=== PATIENT | male | born 1975 | race Two or more races ===

== ENCOUNTER 2023-11-13 09:38 | Outpatient (OUT) | payer BC, SELFPAY ==
[2023-11-14 04:07] LABS: Testosterone 11 ng/dL (264-916)
== END 2023-11-13 09:39 | disposition home or self-care (01) ==
LOC: LAB 09:46
PROVIDERS: PCP Family Medicine; Visit Provider Family Medicine
DX: Z00.00 Encounter for general adult medical examination without abnormal findings (principal)
CPT/HCPCS: 36415; 84403

== ENCOUNTER 2024-03-03 09:48 | Outpatient (REF) | payer BC, SELFPAY ==
[2024-03-03 10:24] LABS: Internal Control Within Normal Limits; SARS-CoV-2 Ag NEGATIVE (NEGATIVE)
== END 2024-03-03 09:49 | disposition home or self-care (01) ==
LOC: LAB 09:48
PROVIDERS: PCP Family Medicine; Visit Provider Nurse Practitioner Family
DX: B34.9 Viral infection, unspecified (principal)
CPT/HCPCS: 87811

== ENCOUNTER 2024-05-08 10:59 | Outpatient (OUT) | payer BC, SELFPAY ==
[2024-05-09 08:12] LABS: Testosterone 313 ng/dL (264-916)
== END 2024-05-08 11:00 | disposition home or self-care (01) ==
LOC: LAB 11:00
PROVIDERS: PCP Family Medicine; Visit Provider Nurse Practitioner Family
DX: E29.1 Testicular hypofunction (principal)
CPT/HCPCS: 36415; 84403

== ENCOUNTER 2025-04-14 11:17 | Outpatient (OUT) | payer BC, SELFPAY ==
--- OUTSIDE RECORDS SUMMARY | 2024-06-20 09:15 | XMS_ITS | Encounter Summary ---
Author Name [facility] Address [address] [place] [address] Care Team Providers Care [employer] Supervisor Name Role Phone EMMY TYLER Primary Care Provider Unavailabl e Selected Encounter This section includes the information on record at [place] for the Encounter. Date/Time Encounter Type Encounter Description Reason Pro vider Source Jun 20, 2024 01:15 PM Outpatient Encounter ADMIN PAT ACTIVTIES (MASNONCT) I[facility] Encounter Template Text not used by [place] Plan of Treatment: Future Appointments (+ 6 months) and Future Tests (+/- 45 days) The Plan of Treatment section includes future care activities for the patient from all [place] treatmentfacilities. This section includes future appointments and future orders which are active, pending or scheduled. Future Appointments This section includes appointments that were scheduled to occur 6 months from the date of the Encounter, up to a maximum of 20 appointments. The data comes from all [place] treatment facilities. Appointment Date/Time Appointment Type Appointme nt Facility Name Jul 31, 2024 02:00 PM AMBULATORY - MEDICINE [facility] Aug 25, 2024 03:00 PM AMBULATORY - PSYCHIATRY TO [facility] Aug 25, 2024 03:00 PM AMBULATORY - NONE [facility] [place] [facility] Aug 28, 2024 03:00 PM AMBULATORY - REHAB MEDICIN [facility] Sep 04, 2024 03:00 PM AMBULATORY - PSYCHIATRY [facility] Sep 12, 2024 03:30 PM AMBULATORY - PSYCHIATRY TO [facility] Oct 01, 2024 04:30 PM AMBULATORY - PSYCHIATRY TO [facility] Oct 08, 2024 04:30 PM AMBULATORY - PSYCHIATRY TO [facility] Oct 22, 2024 04:30 PM AMBULATORY - PSYCHIATRY TO [facility] Nov 05, 2024 04:30 PM AMBULATORY - PSYCHIATRY TO [facility] Nov 19, 2024 04:30 PM AMBULATORY - PSYCHIATRY TO [facility] Nov 26, 2024 04:30 PM AMBULATORY - PSYCHIATRY TO [facility] Dec 03, 2024 04:30 PM AMBULATORY - PSYCHIATRY TO [facility] Dec 10, 2024 04:30 PM AMBULATORY - PSYCHIATRY TO [facility] December 17, 2024 04:30 PM AMBULATORY - PSYCHIATRY TO [facility] Active, Pending, and Scheduled Orders This section includes a listing of several types of active, pending, and scheduled orders, including clinic medications orders, diagnostic test orders, procedure orders and consult orders; where the start date of the order is 45 days before the date of the Encounter or 45 days after the date of theEncounter. The data comes from all [place] treatment facilities. Test Date/Time Test Type Test Details Facility Name Jul 15, 2024 12:00 AM Laboratory - Chemi stry Order OCCULT BLOOD,FIT X1 SCREEN STOOL FECES SP [place] Jul 31, 2024 12:00 AM Laboratory - Chemi stry Order OCCULT BLOOD,FIT X1 SCREEN STOOL FECES WC [facility] Jul 31, 2024 01:32 PM Laboratory - Chemi stry Order CBC W/O DIFF. EDTA BLOOD SP ONCE [facility] Encounter Notes: All associated encounter notes This section contains the clinical notes associated to the Encounter. Date/Time Encounter Note(s) Provider Source Jun 20, 2024 01:16 PM MENTAL HEALTH NURS ING NOTE: LOCAL TITLE: [facility] MENTAL HEALTH NURSING NOTE STANDARD TITLE: MENTAL HEALTH NURSING NOTE DATE OF NOTE: JUN 20, 2024@13:16 ENTRY DATE: JUN 20, 2024@13:16:37 AUTHOR: YISEL HERNANDEZ EXP COSIGNER: URGENCY: STATUS: COMPLETED Telephone Note: Spoke with patient for 5 minutes. Current situation/condition: (include MSE, Crisis, Substance Abuse, SI/HI, need for medication renewal) Contacted to follow up on medication change and mental health symptoms at the request of Dr. Wu in 06/06/24 note addendum. Name, , and last 4 of SSN used to identify . Mills confirmed current location is address listed in CPRS. Mills agreeable to complete telephone visit with RN at this time. Assessment: reported melatonin and venlafaxine XR are working well. Denied adverse effects. Stated the first day of taking the venlafaxine he had some drowsiness, but that has gone away. Mills described his mood as being good. Denied SI/HI. Stated. Work has been a little bit of a pain in the butt but I'm ok. Mills reported he hasn't had an anxiety attack in a while. When was asked about the current dose of melatonin he uses. Mills stated he takes 10mg. To confirm was asked if he was taking 1 capsule or 2. Mills stated that he only takes one capsule. Mills was educated that 1 capsule is 5mg per his prescription. stated he thought one capsule was 10mg. uses the melatonin each night reported he gets 6-7 hours of continuous sleep. denied questions or concerns at this time. Plan: -Continue with treatment plan per [facility] Provider(s) -Confirmed next appointment with Dr. Wu is on 07/14/24 at 1330. Education: -Provided guidance should contact the 's Crisis Line number [phone] (available 05/03) or call 911 or present to the closest Emergency Department if needed. /blayne/ YISEL URIOSTEGUI REGISTERED NURSE Signed: 06/20/2024 13:18 Receipt Acknowledged By: 06/20/2024 15:47 /blayne/ VISH WU [employer] SKIVER YISEL HERNANDEZ [facility]
--- OUTSIDE RECORDS SUMMARY | 2024-07-31 10:00 | XMS_ITS | Encounter Summary ---
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 Date/Time Encounter Type Encounter Description Reason Provider Source Jul 31, 2024 02:00 PM OFFICE O/P EST MOD 30 MIN PRIMARY CARE/MEDICINE ICD-10-CM M25.569 Pain in unspecified knee EMMY PACHECO NP IH[facility] Paul Encounter Template Text not used by [place] Assessments - Encounter Diagnoses This section includes the primary and secondary diagnoses documented for the Encounter. Date/Time Primary/Secondary Diagnosis Diagnosis Name Provider Source Jul 31, 2024 01:35 PM PRIMARY Pain in unspecified knee EMMY PACHECO NP [facility] Jul 31, 2024 01:35 PM SECONDARY Anxiety disorder, unspecified EMMY PACHECO NP [facility] Jul 31, 2024 01:35 PM SECONDARY Depression, unspecified EMMY PACHECO NP [facility] Jul 31, 2024 01:35 PM SECONDARY Essential (primary) hypertension [facility] Jul 31, 2024 01:35 PM SECONDARY Gastro-esophageal reflux disease without esophagitis [facility]MMY PAC[facility]CO [facility] Jul 31, 2024 01:35 PM SECONDARY Hyperlipidemia, unspecified [facility] Jul 31, 2024 01:35 PM SECONDARY Low back pain, unspecified EMMY PACHECO NP [facility] Jul 31, 2024 01:35 PM SECONDARY Obstructive sleep apnea (adult) (pediatric) EMMY PACHECO NP [facility] Jul 31, 2024 01:35 PM SECONDARY Pain in left knee EMMY PACHECO NP [facility] Jul 31, 2024 01:35 PM SECONDARY Type 2 diabetes mellitus without complications EMMY PACHECO NP [facility] Plan of Treatment: Future Appointments (+ 6 months) and Future Tests (+/- 45 days) The Plan of Treatment section includes future care activities for the patient from all [place] [facility] This section includes future appointments and future orders which are active, pending or scheduled. Future Appointments This section includes appointments that were scheduled to occur 6 months from the date of the Encounter, up to a maximum of 20 appointments. The data comes from all [place] treatment facilities. Appointment Date/Time Appointment Type Appointme nt Facility Name Aug 25, 2024 03:00 PM AMBULATORY - PSYCHIATRY TO [facility] Aug 25, 2024 03:00 PM AMBULATORY - NONE [facility] Aug 28, 2024 03:00 PM AMBULATORY - REHAB MEDICIN E [facility] Sep 04, 2024 03:00 PM AMBULATORY - PSYCHIATRY [facility] Sep 12, 2024 03:30 PM AMBULATORY - PSYCHIATRY TO [facility] Oct 01, 2024 04:30 PM AMBULATORY - PSYCHIATRY TO [facility] Oct 08, 2024 04:30 PM AMBULATORY - PSYCHIATRY TO [facility] Oct 22, 2024 04:30 PM AMBULATORY - PSYCHIATRY TO [facility] Nov 05, 2024 04:30 PM AMBULATORY - PSYCHIATRY TO [facility] Nov 19, 2024 04:30 PM AMBULATORY - PSYCHIATRY TO [facility] Nov 26, 2024 04:30 PM AMBULATORY - PSYCHIATRY TO [facility] Dec 03, 2024 04:30 PM AMBULATORY - PSYCHIATRY TO [facility] Dec 10, 2024 04:30 PM AMBULATORY - PSYCHIATRY TO [facility] December 17, 2024 04:30 PM AMBULATORY - PSYCHIATRY TO [facility] Jan 28, 2025 02:30 PM AMBULATORY - PSYCHIATRY TO [facility] Active, Pending, and Scheduled Orders This section includes a listing of several types of active, pending, and scheduled orders, including clinic medications orders, diagnostic test orders, procedure orders and consult orders; where the start date of the order is 45 days before the date of the Encounter or 45 days after the date of theEncounter. The data comes from all [place] treatment facilities. Test Date/Time Test Type Test Details Facility Name Jul 15, 2024 12:00 AM Laboratory - Chemi stry Order OCCULT BLOOD,FIT X1 SCREEN STOOL FECES SP [facility] Jul 31, 2024 12:00 AM Laboratory - Chemi stry Order OCCULT BLOOD,FIT X1 SCREEN STOOL FECES WC [facility] Jul 31, 2024 01:32 PM Laboratory - Chemi stry Order CBC W/O DIFF. EDTA BLOOD SP ONCE [facility] Sep 04, 2024 03:57 PM Consult Order JOE URRUTIA TEAM OUTPT [employer] Speech Language Pathologist's Choice [facility] Lab Results: +/- 30 days of the encounter This section includes the Chemistry and Hematology Lab Results on record with [place] for the patient. Radiology Reports and Pathology Reports are provided separately, in subsequent sections. Lab Results This section contains the Chemistry/Hematology Results that were resulted 30 days before or 30 daysafter the date of the Encounter. Date/Time Source Result Type Result - Unit Interpretation Reference Range Specimen Type Comment Jul 31, 2024 01:46 PM [facility] MICROALBUMIN URINE PANEL,RANDOM URINE,RA NDOM Specimen Type: URINE,RANDOM No comment entered. Ordering Provider: EMMY PACHECO DRYWALL APPLICATOR Report Released Date/Time: Jul 31, 2024 01:32 PM Reporting Lab: [address] [address] Performing Lab: [address] [address] CREATININE 184 mg/dL MICROALBUMIN,RANDOM 1.6 mg/dL MICRO/CREAT RATIO 8.7 mg/g Jul 31, 2024 01:46 PM [facility] URINALYSIS URINE,RANDOM Specimen Type: URINE,RANDOM No comment entered. Ordering Provider: EMMY PACHECO DRYWALL APPLICATOR Report Released Date/Time: Jul 31, 2024 01:32 PM Reporting Lab: [facility] [address] [facility] [address] Performing Lab: [facility] [address] [facility] [address] URINE COLOR YELLOW Yellow SPECIFIC GRAVITY 1.023 1.003-1.035 UROBILINOGEN 1.0 {Billy'U}/dL 0.2-2.0 URINE BILIRUBIN NEGATIVE Negative URINE KETONES NEGATIVE Negative URINE GLUCOSE NEGATIVE Negative URINE PROTEIN 2+ Negative URINE PH 5.5 5.0-9.0 URINE BLOOD NEGATIVE Negative URINE NITRITE NEGATIVE Negative LEUKOCYTE ESTERASE NEGATIVE Negative URINE CLARITY CLEAR Clear RBC/HPF URINE 0-2 /[HPF] 0-2 WBC/HPF URINE 0-5 /[HPF] 0-5 BACTERIA,URINE None Seen /[HPF] RENAL EPITHELIAL CELLS/HPF Present None Seen URINE MUCOUS Present None Seen URINE SPERM PRESENT None Seen TOTAL CASTS 0-2 /[LPF] 0-5 TOTAL EPITHELIAL CELLS None Seen /[LPF] Jul 31, 2024 01:46 PM [facility] LIPID PROFILE BLOOD Specimen Type: BLOOD No comment entered. Ordering Provider: EMMY PACHECO DRYWALL APPLICATOR Report Released Date/Time: Jul 31, 2024 01:32 PM Reporting Lab: [address] [facility] [address] Performing Lab: [facility] [address] [facility] [address] CHOLESTEROL 114 mg/dL <200 TRIGLYCERIDE 238 mg/dL HDL CHOLESTEROL 31 mg/dL LDL CHOLESTEROL,calc 35 mg/dL <130 Jul 31, 2024 01:46 PM [facility] HGB A1C (with eAG) BLOOD Specimen Type: BLOOD Comment: ~HGB A1C - Reference Range prior to 09/24/96: 3-6.1% Ordering Provider: EMMY PACHECO DRYWALL APPLICATOR Report Released Date/Time: Jul 31, 2024 01:32 PM Reporting Lab: [facility] [address] [facility] [address] Performing Lab: [address] [address] HGB A1C 5.6 4.0-6.0 ESTIMATE AVG GLUCOSE 114 mg/dL Jul 31, 2024 01:46 PM [facility] TOTAL 25-HYDROXY VITAMIN D BLOOD Specimen Typ e: BLOOD No comment entered. Ordering Provider: EMMY PACHECO DRYWALL APPLICATOR Report Released Date/Time: Jul 31, 2024 01:32 PM Reporting Lab: [facility] [address] [facility] [address] Performing Lab: [facility] [address] [facility] [address] TOTAL 25-HYDROXY VITAMIN D 12.0 ng/mL L 30 -100 Jul 31, 2024 01:46 PM [facility] COMPREHENSIVE METABOLIC PANEL BLOOD Specimen Type: BLOOD No comment entered. Ordering Provider: EMMY PACHECO NP Report Released Date/Time: Jul 31, 2024 01:32 PM Reporting Lab: [facility] [address] [facility] [address] Performing Lab: [facility] [address] [facility] [address] CREATININE 1.3 mg/dL 0.6-1.3 UREA NITROGEN 17 mg/dL 7-25 GLUCOSE 136 mg/dL H 74-109 SODIUM 139 mmol/L 136-145 POTASSIUM 4.0 mmol/L 3.5-5.1 CHLORIDE 105 mmol/L 98-107 CO2 28 mmol/L 21-31 CALCIUM 9.2 mg/dL 8.6-10.3 PROTEIN,TOTAL 6.9 g/dL 6.4-8.9 ALBUMIN 4.5 g/dL 3.5-5.7 TOT. BILIRUBIN 0.5 mg/dL 0.3-1.0 ALKALINE PHOSPHATASE 64 U/L 34-104 SGOT(AST) 28 U/L 13-39 SGPT(ALT) 51 U/L 7-52 EGFR 67 mL/min/{1.73_m2} Social History: Smoking Status (Most current) and Tobacco Use (All prior to encounter date) This section includes the most current, and the historical, smoking and tobacco- related health factors from the [place] facility where the Encounter took place. Current Smoking Status This section includes the most current smoking, or tobacco-related health factor, from the [place] facility where the Encounter took place. Date/Time Current Smoking Status Comment Jonathan solisy Nov 01, 2023 03:30 PM VA-TOBACCO DOESNT USE WI 30 MIN WAKEUP [facility] Tobacco Use History This section includes a history of the smoking, or tobacco-related health factors, that were collected on or before the date of the Encounter. The data comes from the [place] facility where the Encounter took place. Date/Time Smoking Status/Tobacco Use Comment F acility Nov 01, 2023 03:30 PM VA-TOBACCO USE > 15 LESS THAN 30 YEARS [facility] Nov 01, 2023 03:30 PM VA-TOBACCO USE ADVICE [facility] Nov 01, 2023 03:30 PM VA-TOBACCO USE SPICE GRINDER YES [facility] Nov 01, 2023 03:30 PM VA-TOBACCO USE MED NOTIFY PROVID ER [facility] Nov 01, 2023 03:30 PM VA-TOBACCO USER EVERY DAY [facility] Oct 20, 2022 10:30 AM VA-TOBACCO DOESNT USE WI 30 MIN WAKEUP [facility] Oct 20, 2022 10:30 AM VA-TOBACCO USE > 15 LESS THAN 30 YEARS [facility] Oct 20, 2022 10:30 AM VA-TOBACCO USE ADVICE [facility] Oct 20, 2022 10:30 AM VA-TOBACCO USE SPICE GRINDER NO [facility] Oct 20, 2022 10:30 AM VA-TOBACCO USE MED NOTIFY PROVID ER [facility] Oct 20, 2022 10:30 AM VA-TOBACCO USER EVERY DAY [facility] Encounter Notes: All associated encounter notes This section contains the clinical notes associated to the Encounter. Date/Time Encounter Note(s) Provider Source Jul 31, 2024 02:41 PM PRIMARY CARE TELEP SHAVONNE ENCOUNTER NOTE: LOCAL TITLE: PRIMARY CARE TELEPHONE STANDARD TITLE: PRIMARY CARE TELEPHONE ENCOUNTER NOTE DATE OF NOTE: JUL 31, 2024@14:41 ENTRY DATE: JUL 31, 2024@14:42:03 AUTHOR: EMMY PACHECO NP EXP COSIGNER: URGENCY: STATUS: COMPLETED Please call and go over patient's recent lab work. Thank you. Lipid panel: Normal A1c: 5.6 CMP: Normal UA: Normal Vitamin D: 12.0 Please let patient know that he should take vitamin D at this time as his vitamin D was low. Will order vitamin D for him to take. It will be once a week for 3 months. He should have his vitamin D rechecked at his next visit. /blayne/ EMMY PACHECO NP Nurse Practitioner, [facility] Signed: 08/01/2024 07:42 Receipt Acknowledged By: 08/01/2024 13:22 /blayne/ KIT REESE, RN EMMY PACHECO NP [facility] Jul 31, 2024 01:26 PM PRIMARY CARE OUTPA JOS NOTE: LOCAL TITLE: PRIMARY CARE STANDARD TITLE: PRIMARY CARE OUTPATIENT NOTE DATE OF NOTE: JUL 31, 2024@13:26 ENTRY DATE: JUL 31, 2024@13:26:24 AUTHOR: EMMY PACHECO NP EXP COSIGNER: URGENCY: STATUS: COMPLETED OUTPATIENT NOTE - NANETTE CHOI JR (1975) - 07/31/2024 ASSESSMENT AND PLAN: Bilateral Knee Pain - Discussed with patient we would reach out to nurse rn case manager for physical medicine and rehabilitation to assist with getting him scheduled for his follow-up appointment. Patient states that Duralene injections did work well but they have since worn off. Patient was last seen in June,. Diabetes Mellitus Type II - Patient states he is only taking Semaglutide at this time. Patient is getting Semaglutide through his outside provider. Hypertension - Blood pressure within normal limits at today's visit. Encouraged patient to continue with home monitoring, low sodium diet and if any issues or concerns return to clinic for further evaluation. Medication will be refilled at today's visit if warranted. Hyperlipidemia - Discussed with patient to continue with dietary modifications and to increase lean meats, fresh fruits, and vegetables. Discussed with patient we will get annual lab work at this time. Will adjust medication or change medication if warranted after results. Obstructive Sleep Apnea - Currently getting all supplied though the outside at this time. Anxiety - States he is taking medication without any issues and starting therapy in September,. Denies any thoughts of wanting to hurt self or others. Low Back Pain Wearing low back brace and using TENS unit at this time. States he has been to PT at this time. Preventative Measures - Encourage patient to follow-up with all recommended vaccinations and immunizations. Encourage patient to complete all preventative testing and procedures appropriate for age. Discussed with patient we will get annual lab work at today's visit. Discussed with patient we will call for any abnormal lab work. Encourage patient to continue with healthy living to include diet and exercise. Labs - CBC, CMP, A1C, Lipid, UA/Microalbumiin Return to Clinic - Discussed with patient to follow up at clinic in 12 months. Discussed with patient to return to clinic sooner for any issues or concerns. Encouraged patient to reach out to PCM and RNCM via secure messaging in [employer] piter. Patient verbalized understanding and denied any questions or concerns and verbalized understanding of treatment plan. Encounter type: Aifn-sv-gtow. Time (F2F + Non-F2F): 30 min. RETURN VISIT: - Return visit in: 12 months 12 month face to face follow up Reason for encounter: Annual Visit HPI: 48-year-old male presents for annual follow up. Diabetes Mellitus Type II - Currently taking Ozempic weekly. States he is being managed by his outside provider at this time. Hypertension - Currently taking Irbesartan and is managed by outside provider at this time. Hyperlipidemia - Currently taking Atorvastatin at this time. Denies any myalgias and is being managed by outside provider. Bilateral Knee Pain - Patient had Durolane injections to physical medicine and rehabilitation in February,. Patient was to have a follow-up in 3 months. Patient has not yet heard when his follow-up date was. Obstructive Sleep Apnea - Currently using CPAP machine nightly. Anxiety - Currently taking Venlafaxine. States he has increased stress and anxiety. CO-MANAGED INFORMATION: - Orthopedic: [facility] - Primary Care Provider: Deepa REVIEW OF SYSTEMS: MSK: (+) Joint pain PAST MEDICAL HISTORY: Diabetes mellitus with Peripheral Neuropathy GERD Hyperlipidemia Hypertension Sleep Apnea Lower Back Pain Cervicalgia Tinnitus Hearing Loss Lower Extremity Edema SOCIAL HISTORY - ETOH Use: Current ETOH: Infrequent (based on Audit - C guidelines). - Tobacco use: Current Smoker: Yes. 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 ATORVASTATIN TAB - 10mg PO DAILY IRBESARTAN TAB - 75mg PO DAILY MELATONIN 5MG CAP/TAB - take 1-2 capsule/tablet PO at Q BEDTIME PRN METHOCARBAMOL 750MG TAB - take one tablet PO four times a day OMEPRAZOLE CAP,EC - 20mg PO QPM SEMAGLUTIDE (OZEMPIC) INJ,SOLN - 0.25mg SUBQ once every week VENLAFAXINE HCL 37.5MG 24HR SA CAP - take one capsule PO DAILY VENLAFAXINE HCL 75MG 24HR SA CAP - take one capsule PO DAILY EXAM VITAL SIGNS: Date@Time[Site] BP HR Resp %O2 Pain Wt(kg) Ht(cm) BMI Temp(C) 07/31/24 13:07[506] 128/74 84 18 96 7 131.5 175 43 37 Units mmHg /min /min % kg cm C PHYSICAL EXAM: Gen:(+) Oriented x3 HEENT:(+) TM Intact Neck:(+) Supple CV:(+) RRR Lungs:(+) CTAB Abd:(+) Soft Gait - Walks by self Neuro - CN Intact HEALTH MAINTENANCE Immunization History: - COVID: 01/28/21 01/07/21 - FLU: 09/09/21 Colon Cancer Screening Plan: P-MEDICATION RECONCILIATION: Completed. Avg Risk Colorectal Cancer Screen: AVERAGE RISK colorectal cancer screening is due based on information available to this clinical reminder FOBT/FIT (Fecal Immunochemical Testing) has been ordered. See order tab for details. P-HgA1C >9 or not done in 6 mo.: Patient's last HGB A1C was 5.3 (01/24/24 16:00). Patient's HG A1C labs are pending at the time of this visit. Bariatric Surgery Reminder: [place] has been identified as a potential candidate for bariatric surgery. Please evaluate and bariatric surgery criteria and make the most appropriate selection. [place] is NOT CURRENTLY a candidate for bariatric surgery but may be in the future /blayne/ EMMY PACHECO NP Nurse Practitioner, [facility] Signed: 07/31/2024 13:35 EMMY PACHECO NP [facility] Jul 31, 2024 01:02 PM PRIMARY CARE NURSI NG NOTE: LOCAL TITLE: PRIMARY CARE PREVENTIVE HEALTH STANDARD TITLE: PRIMARY CARE NURSING NOTE DATE OF NOTE: JUL 31, 2024@13:02 ENTRY DATE: JUL 31, 2024@13:02:53 AUTHOR: JAZMÍN MICHAEL COSIGNER: URGENCY: STATUS: COMPLETED S; Chief complaint/reason for 6 month folow up appointment O: Vital signs enered. P: To see a provider Emmy Pacheco NP COVID-19 Immunization: Refused Pfizer Monovalent COVID-19 vaccine Immunization: COVID-19 (PFIZER), MRNA, LNP-S, PF, BALDEMAR-SUCROSE, 30 MCG/0.3 ML (AGES 12+ YEARS) Refusal Reason: PATIENT DECISION Patient refuses all immunization(s) in the COVID-19 group Date Documented: 07/31/24 13:03 Hepatitis B Serology/Immunization: The patient declines to have HBV serology done. Reason: refused Influenza Immunization: Deferral / Refusal The patient declines to receive the recommended dose of seasonal influenza vaccine. Immunization: INFLUENZA, UNSPECIFIED FORMULATION Refusal Reason: PATIENT DECISION Patient refuses all immunization(s) in the FLU group Date Documented: 07/31/24 13:04 Tdap Immunization: The patient declines to receive the recommended dose of Tdap vaccine. Immunization: TDAP Refusal Reason: PATIENT DECISION Patient refuses all immunization(s) in the TDAP group Date Documented: 07/31/24 13:04 Pneumococcal Conjugate Vaccine (PCV15/PCV20): Refuses PCV vaccine Immunization: PNEUMOCOCCAL CONJUGATE, UNSPECIFIED FORMULATION Refusal Reason: PATIENT DECISION Patient refuses all immunization(s) in the PneumoPCV group Date Documented: 07/31/24 13:05 N-Pain Screen: Are you currently experiencing pain? Yes - DVPRS scale used to assess Location: knee's Defense and Veterans Pain Rating Scale (DVPRS): 7 Focus of attention, prevents doing daily activities Pain Score: 7 Patient's acceptable pain goal: 0 No pain N-MEDICATION RECONCILIATION: Review of medications and allergies at the time of this encounter included: Local and remote allergies, active and pending prescriptions dispensed from this [facility] (local) and dispensed from another VA or DoD facility (remote) as well as local inpatient and clinic medications (IMOs), locally documented non-VA medications and local prescriptions that have or been discontinued in the past 90 days. If a category is not listed below, it means there were no known relevant local and/or remote medications and/or allergies. The patient/family member received an updated list of current medications. Local & Remote Allergies: Patient has answered NKA Active Outpatient Medications (including Supplies): MELATONIN 5MG CAP/TAB TAKE 1-2 CAPSULE/TABLET BY MOUTH AT ACTIVE (S) BEDTIME NEEDED Indication: FOR SLEEP METHOCARBAMOL 750MG TAB TAKE ONE TABLET BY MOUTH FOUR ACTIVE (S) TIMES A DAY Indication: FOR MUSCLE SPASM VENLAFAXINE HCL 37.5MG 24HR SA CAP TAKE ONE CAPSULE BY ACTIVE (S) MOUTH ONCE DAILY TO BE TAKEN WITH 75MG CAPSULE FOR TOTAL OF 112.5MG EVERY DAY Indication: FOR MENTAL HEALTH VENLAFAXINE HCL 75MG 24HR SA CAP TAKE ONE CAPSULE BY MOUTH ACTIVE (S) ONCE DAILY TO BE TAKEN WITH 37.5MG CAPSULE FOR A TOTAL OF 112.5MG EVERY DAY Indication: FOR MENTAL HEALTH Non-VA ATORVASTATIN CALCIUM 20MG TAB 10MG MOUTH ONCE DAILY ACTIVE Indication: FOR CHOLESTEROL Non-VA IRBESARTAN 75MG TAB 75MG MOUTH ONCE DAILY ACTIVE Indication: FOR BLOOD PRESSURE Non-VA OMEPRAZOLE 20MG EC CAP 20MG MOUTH EVERY EVENING ACTIVE Indication: FOR STOMACH ACID Non-VA SEMAGLUTIDE 0.25MG/0.375ML INJ PEN 3ML 0.25MG UNDER ACTIVE THE SKIN ONCE EVERY WEEK Indication: FOR DIABETES 8 Total Medications N-BMI > 30 or > 24.99 in High Risk: Patient Refuses referral. After discussing the health risks of obesity and offering a referral to [facility] or another weight loss program outside the [place], the patient REFUSES REFERRAL to [facility] or other weight loss program at this time. N-Stress Discussed ([facility]): [place] DENIES experiencing substantial stress or worry in the past month. N-Colorectal Avg Risk Due: FOBT/FIT (Fecal Immunochemical Testing) has been ordered. See order tab for details. /blayne/ JAZMÍN MICHAEL LPN Signed: 07/31/2024 13:07 JAZMÍN MICHAEL [facility]
--- OUTSIDE RECORDS SUMMARY | 2024-08-25 11:00 | XMS_ITS | Encounter Summary ---
Author Name [facility] [place] [facility] [place] [facility] [place] Address [address] [place] [address] Care Team Providers Care Internal Corrosion Specialist Name Role Phone EMMY TYLER Primary Care Provider Unavailabl e Selected Encounter This section includes the information on record at [place] for the Encounter. Date/Time Encounter Type Encounter Description Reason Provider Source Aug 25, 2024 03:00 PM Outpatient Encounter ADMIN PAT ACTIVTIES (MASNONCT) VISH DISLA [facility] Encounter Template Text not used by [place] Plan of Treatment: Future Appointments (+ 6 months) and Future Tests (+/- 45 days) The Plan of Treatment section includes future care activities for the patient from all [place] treatmentfacilities. This section includes future appointments and future orders which are active, pending or scheduled. Future Appointments This section includes appointments that were scheduled to occur 6 months from the date of the Encounter, up to a maximum of 20 appointments. The data comes from all [place] treatment facilities. Appointment Date/Time Appointment Type Appointme nt Facility Name Aug 28, 2024 03:00 PM AMBULATORY - REHAB MEDICIN E [facility] Sep 04, 2024 03:00 PM AMBULATORY - PSYCHIATRY [facility] Sep 12, 2024 03:30 PM AMBULATORY - PSYCHIATRY TO [facility] Oct 01, 2024 04:30 PM AMBULATORY - PSYCHIATRY TO [facility] Oct 08, 2024 04:30 PM AMBULATORY - PSYCHIATRY TO [facility] Oct 22, 2024 04:30 PM AMBULATORY - PSYCHIATRY TO [facility] Nov 05, 2024 04:30 PM AMBULATORY - PSYCHIATRY TO [facility] Nov 19, 2024 04:30 PM AMBULATORY - PSYCHIATRY TO [facility] Nov 26, 2024 04:30 PM AMBULATORY - PSYCHIATRY TO [facility] Dec 03, 2024 04:30 PM AMBULATORY - PSYCHIATRY TO [facility] Dec 10, 2024 04:30 PM AMBULATORY - PSYCHIATRY TO [facility] December 17, 2024 04:30 PM AMBULATORY - PSYCHIATRY TO [facility] Jan 28, 2025 02:30 PM AMBULATORY - PSYCHIATRY TO [facility] Feb 09, 2025 03:30 PM AMBULATORY - PSYCHIATRY TO [facility] Active, Pending, and Scheduled Orders This section includes a listing of several types of active, pending, and scheduled orders, including clinic medications orders, diagnostic test orders, procedure orders and consult orders; where the start date of the order is 45 days before the date of the Encounter or 45 days after the date of theEncounter. The data comes from all [place] treatment facilities. Test Date/Time Test Type Test Details Facility Name Jul 15, 2024 12:00 AM Laboratory - Chemi stry Order OCCULT BLOOD,FIT X1 SCREEN STOOL FECES SP [facility] Jul 31, 2024 12:00 AM Laboratory - Chemi stry Order OCCULT BLOOD,FIT X1 SCREEN STOOL FECES WC [facility] Jul 31, 2024 01:32 PM Laboratory - Chemi stry Order CBC W/O DIFF. EDTA BLOOD SP ONCE [facility] Sep 04, 2024 03:57 PM Consult Order GLENDY URRUTIA TEAM OUTPT GAVIN Cons Frame Changer's Choice [facility] Lab Results: +/- 30 days of the encounter This section includes the Chemistry and Hematology Lab Results on record with [place] for the patient. Radiology Reports and Pathology Reports are provided separately, in subsequent sections. Lab Results This section contains the Chemistry/Hematology Results that were resulted 30 days before or 30 daysafter the date of the Encounter. Date/Time Source Result Type Result - Unit Interpretation Reference Range Specimen Type Comment Jul 31, 2024 01:46 PM [facility] MICROALBUMIN URINE PANEL,RANDOM URINE,RA NDOM Specimen Type: URINE,RANDOM No comment entered. Ordering Provider: EMMY TYLER NP Report Released Date/Time: Jul 31, 2024 01:32 PM Reporting Lab: [facility] [address] [facility] [address] Performing Lab: [facility] [address] [facility] [id number] CREATININE 184 mg/dL MICROALBUMIN,RANDOM 1.6 mg/dL MICRO/CREAT RATIO 8.7 mg/g Jul 31, 2024 01:46 PM [facility] URINALYSIS URINE,RANDOM Specimen Type: URINE,RANDOM No comment entered. Ordering Provider: EMMY TYLER MANAGER FINANCIAL Report Released Date/Time: Jul 31, 2024 01:32 PM Reporting Lab: [address] [facility] [address] Performing Lab: [address] [address] URINE COLOR YELLOW Yellow SPECIFIC GRAVITY 1.023 [...] Seen /[LPF] Jul 31, 2024 01:46 PM [facility] LIPID PROFILE BLOOD Specimen Type: BLOOD No comment entered. Ordering Provider: EMMY TYLER MANAGER FINANCIAL Report Released Date/Time: Jul 31, 2024 01:32 PM Reporting Lab: [address] [facility] [address] Performing Lab: [facility] [address] [facility] [address] CHOLESTEROL 114 mg/dL <200 TRIGLYCERIDE 238 mg/dL HDL CHOLESTEROL 31 mg/dL LDL CHOLESTEROL,calc 35 mg/dL <130 Jul 31, 2024 01:46 PM [facility] COMPREHENSIVE METABOLIC PANEL BLOOD Specimen Type: BLOOD No comment entered. Ordering Provider: EMMY TYLER MANAGER FINANCIAL Report Released Date/Time: Jul 31, 2024 01:32 PM Reporting Lab: [address] [facility] [phone] Performing Lab: [address] [address] CREATININE 1.3 mg/dL 0.6-1.3 UREA NITROGEN 17 mg/dL 7-25 GLUCOSE 136 mg/dL H 74-109 SODIUM 139 mmol/L 136-145 POTASSIUM 4.0 mmol/L 3.5-5.1 CHLORIDE 105 mmol/L 98-107 CO2 28 mmol/L 21-31 CALCIUM 9.2 mg/dL 8.6-10.3 PROTEIN,TOTAL 6.9 g/dL 6.4-8.9 ALBUMIN 4.5 g/dL 3.5-5.7 TOT. BILIRUBIN 0.5 mg/dL 0.3-1.0 ALKALINE PHOSPHATASE 64 U/L 34-104 SGOT(AST) 28 U/L 13-39 SGPT(ALT) 51 U/L 7-52 EGFR 67 mL/min/{1.73_m2} Jul 31, 2024 01:46 PM [facility] HGB A1C (with eAG) BLOOD Specimen Type: BLOOD Comment: ~HGB A1C - Reference Range prior to 09/24/96: 3-6.1% Ordering Provider: EMMY TYLER MANAGER FINANCIAL Report Released Date/Time: Jul 31, 2024 01:32 PM Reporting Lab: [address] [facility] [address] Performing Lab: [address] [address] HGB A1C 5.6 4.0-6.0 ESTIMATE AVG GLUCOSE 114 mg/dL Jul 31, 2024 01:46 PM [facility] TOTAL 25-HYDROXY VITAMIN D BLOOD Specimen Typ e: BLOOD No comment entered. Ordering Provider: EMMY TYLER MANAGER FINANCIAL Report Released Date/Time: Jul 31, 2024 01:32 PM Reporting Lab: [address] [address] Performing Lab: [address] [address] TOTAL 25-HYDROXY VITAMIN D 12.0 ng/mL L 30 -100 Social History: Smoking Status (Most current) and Tobacco Use (All prior to encounter date) This section includes the most current, and the historical, smoking and tobacco- related health factors from the [place] facility where the Encounter took place. Current Smoking Status This section includes the most current smoking, or tobacco-related health factor, from the [place] facility where the Encounter took place. Date/Time Current Smoking Status Comment Facil ity Nov 01, 2023 03:30 PM VA-TOBACCO USER EVERY DAY [facility] Tobacco Use History This section includes a history of the smoking, or tobacco-related health factors, that were collected on or before the date of the Encounter. The data comes from the [place] facility where the Encounter took place. 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 [facility] Nov 01, 2023 03:30 PM VA-TOBACCO USE MED NOTIFY PROVID ER [facility] Nov 01, 2023 03:30 PM VA-TOBACCO USER EVERY DAY [facility] Oct 20, 2022 10:30 AM VA-TOBACCO DOESNT USE WI 30 MIN WAKEUP [facility] Oct 20, 2022 10:30 AM VA-TOBACCO USE > 15 LESS THAN 30 YEARS [facility] Oct 20, 2022 10:30 AM VA-TOBACCO USE ADVICE [facility] Oct 20, 2022 10:30 AM VA-TOBACCO USE 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 Date/Time Encounter Note(s) Provider Source Aug 25, 2024 09:54 AM PHARMACY OUTPATIEN T MEDICATION MGT NOTE: LOCAL TITLE: PSYCHIATRY - PHARMACIST STANDARD TITLE: PHARMACY OUTPATIENT MEDICATION MGT NOTE DATE OF NOTE: AUG 25, 2024@09:54 ENTRY DATE: AUG 25, 2024@09:54:09 AUTHOR: VISH DISLA COSIGNER: URGENCY: STATUS: COMPLETED [place] was educated regarding using [place] [facility] for encounter. understands Telehealth modality being used for this visit and option to be seen face to face if prefers. [place] consents to be seen via [place] [facility]. Patient identity has been confirmed using 2 patient identifiers (ie. Full name and date of ). S: Pt is a 49 yo MALE being seen in mental health clinic for treatment of Anxiety Disorder Unspecified--per record Depressive Disorder Unspecified--per record Sleep apnea Obesity per 04/09/24 psychiatry note PMH signficant for LBP, tinnitus, cervicalgia, sammie, HTN, HLD, GERD, DM II, At last apppointment on 06/05/24 melatonin 5-10mg qhs prn was restarted and venlafaxine IR 100mg tablets were discontinued and venlafaxine XR 112.5mg/day was initiated. pt reported doing well with the transition during 06/20 crh rn f/u after initially experiencing mild drowsiness with venlafaxine xr. he reported taking melatonin 5mg qhs prn at that time. reports taking melatonin for a few nights, sleep improves, tries to go without it and sleep worsens, resumes it. States he has missed 1-2 doses of venlafaxine since transitioning to XR formulation, states anxiety increases with missed doses but he doesnt experience as signficant of gi disturbances as when he missed doses with IR tablets, denies other discontnuation symptoms. reports no signficant difference in mood, just constantly tired and worn out . takes venlafaxine in the evening. rafael hangover effect. states fatigue has not changed from last appt. bp wnl at 07/31 pcp appt. PSYCHIATRIC REVIEW OF SYSTEMS: Depression: Changes in depression since previous visit. [x]Denies depression. [ ]Denies change in depression. [ ]Increased depression. [ ]Decreased depression. Depression is difficult to manage at times. [x]Denies [ ]Endorses Anhedonia: [ ]Endorses [x]Denies Appetite: [ ]Increased [ ]Decreased [x ]Stable, too good at times Weight: [ ]Increased [ ]Decreased [ x]Stable Sleep: with melatonin 5mg at bedtime [x]Difficulty initiating sleep, 45 min sleep latency, reduced from 60 min at last appt [x]Continuous [ ]Fractured/Restless [ ]Endorses nightmares [x]Denies nightmares [x]Sleeps with C-pap, every night, cant sleep without it [ ]Endorses feeling rested with waking [x]Denies feeling rested with waking - reports TST 5-6 hours per night with melatonin increased from 3-4 hours per night on nights he does nto take it. - tries to avoid napping Motivation/Energy: reports persistent fatigue, denies change from last appt. states motivation is fair for the first part of the day, can get harder later in the day. Concentration: fair, tinnitus can be distracting at times. Feelings: Hopelessness [x]Denies [ ]Endorses Helplessness [x ]Denies [ ]Endorses Worthlessness [x ]Denies [ ]Endorses Guilt [x ]Denies [ ]Endorses Anxiety: reports feeling anxious 1-2 days over the last 2 weeks [ ]Denies anxiety. [ ]Denies change in anxiety. [x]Decreased anxiety. [ ]Increased anxiety. Anxiety is difficult to manage at times. [x]Denies [ ]Endorses Symptoms endorsed: [ ]None [ ]Restlessness [x]Irritability, better than in the past [x]Muscle tension [x]Fatigue [x]Deficits in concentration [x]Ruminating thoughts, decreased Panic attacks: [x]Denies over the past month [ ]Endorses Harshal: [x ]Denies past diagnosis of cyclic disorder. [ ]Endorses past/current diagnosis of cyclic disorder. [ ]Endorses symptoms related to hypomania or harshal. Symptoms endorsed: [x ]None, denies symptoms related to hypomania or harshal. [ ]Feelings of grandeur [ ]Irritability [ ]Decreased need for sleep [ ]Pressured speech [ ]Racing thoughts [ ]Easily distracted [ ]Impulsive behaviors [ ]Goal directed activity [ ]Participating in activities that cause painful consequences Psychosis: Auditory hallucinations [x ]Denies [ ]Endorses Visual hallucinations [x ]Denies [ ]Endorses Tactile hallucinations [ x]Denies [ ]Endorses Paranoia [ x]Denies [ ]Endorses Delusions [x ]Denies [ ]Endorses History: LAST BRANCH - NONE FOUND, Service - NONE FOUND PTSD/TRAUMA: [ ] is [place] % for PTSD. [ ][place] endorses symptoms related to PTSD/Trauma: [x ][place] is not service connected for PTSD. Symptoms endorsed: [x ]None, denies symptoms of PTSD and/or trauma. 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 TOBACCO USE: chews one can per day CAFFEEINE: 1 cup of coffee in the mrwillam, started recently and plans to d/c as he doesnt like the way it makes him feel ALCOHOL USE: occasional use 1-2 drinks, once a month SUBSTANCE USE:denies MENTAL STATUS EXAM APPEARANCE: [x]good grooming [x]appropriate attire APPARENT AGE: [x]stated [ ]other POSITION AND POSTURE: [x]unremarkable [ ]other EYE CONTACT: [x]maintained [ ]other SPEECH: [x]normal [ ]other ATTITUDE: [x]cooperative [ ]uncooperative [ ]hostile [ ]defensive [ ]seductive [ ]evasive [ ]ingratiating PSYCHOMOTOR AGITATION/RETARDATION: [ ]present [x]absent INOVLUTARY/AUTOMATIC MOVEMENTS: [ ]present [x]absent TICS, MANNERISMS, COMPULSIONS: [ ]present [x]absent AFFECT: [x]euthymic [ ]apathetic [ ]angry [ ]dysphoric apprehensive [ ] euphoric THOUGHT PROCESS: [x]goal-directed, logical [ ]tangential [ ]circumstantial [ ]loose associations [ ]flight of ideas THOUGHT CONTENT: [x]WNL [ ]delusions [ ]preoccupations [ ] ruminations [ ]obsessions CONCENTRATION AND MEMORY: grossly intact INSIGHT: [x]Understands problems [x]Able to verbalize possible solutions to problems JUDGEMENT: [x]Able to understand treatment plan [x]Able to make informed decisions LEVEL OF CONSCIOUSNESS: [x]alert [ ]sedated [ ]obtunded SUICIDAL IDEATION: denies CSSRS [ ]positive [x]negative CSRE [ ]completed [x]not required Risk Factors have: [ ] increased [ ] decreased [x] no change [ ] other: Protective Factors have: [ ] increased [ ] decreased; [x] no change [ ] other: Safety plan [ ]completed [ ]reviewed [x]pt declined [ ]not required Pt has been provided with education on the veterans crisis line and VA/non-VA emergency room services and is agreeable to utilize as needed in the future. HOMICIDAL IDEATION: denies ALLERGIES: Patient has answered NKA No Remote Allergy/ADR Data available for this patient ACTIVE MEDICATIONS: Active Outpatient Medications (including Supplies): Active Outpatient Medications Status 1) DICLOFENAC NA 1% TOP GEL APPLY 4 GRAMS TO SKIN TWICE A DAY ACTIVE NEEDED TO AFFECTED JOINT(S) DIRECTED FOR PAIN (USE ENCLOSED DOSING CARD TO ACCURATELY MEASURE EACH DOSE) Indication: FOR PAIN AND INFLAMMATION 2) ERGOCALCIF 1,250MCG (D2-50,000UNIT) CAP TAKE 1 CAPSULE BY ACTIVE MOUTH ONCE WEEKLY Indication: FOR VITAMIN SUPPLEMENT 3) MELATONIN 5MG CAP/TAB TAKE 1-2 CAPSULE/TABLET BY MOUTH AT ACTIVE BEDTIME NEEDED Indication: FOR SLEEP 4) MELOXICAM 15MG TAB TAKE ONE TABLET BY MOUTH ONCE DAILY ACTIVE Indication: FOR PAIN AND INFLAMMATION 5) METHOCARBAMOL 750MG TAB TAKE ONE TABLET BY MOUTH FOUR TIMES ACTIVE A DAY Indication: FOR MUSCLE SPASM 6) VENLAFAXINE HCL 37.5MG 24HR SA CAP TAKE ONE CAPSULE BY MOUTH ACTIVE ONCE DAILY TO BE TAKEN WITH 75MG CAPSULE FOR TOTAL OF 112.5MG EVERY DAY Indication: FOR MENTAL HEALTH 7) VENLAFAXINE HCL 75MG 24HR SA CAP TAKE ONE CAPSULE BY MOUTH ACTIVE ONCE DAILY TO BE TAKEN WITH 37.5MG CAPSULE FOR A TOTAL OF 112.5MG EVERY DAY Indication: FOR MENTAL HEALTH Active Non-VA Medications Status 1) Non-VA ATORVASTATIN CALCIUM 20MG TAB 10MG MOUTH ONCE DAILY ACTIVE Indication: FOR CHOLESTEROL 2) Non-VA IRBESARTAN 75MG TAB 75MG MOUTH ONCE DAILY ACTIVE Indication: FOR BLOOD PRESSURE 3) Non-VA OMEPRAZOLE 20MG EC CAP 20MG MOUTH EVERY EVENING ACTIVE Indication: FOR STOMACH ACID 4) Non-VA SEMAGLUTIDE 0.25MG/0.375ML INJ PEN 3ML 0.25MG UNDER ACTIVE THE SKIN ONCE EVERY WEEK Indication: FOR DIABETES 11 Total Medications No Active Remote Medications for this patient OTC/HERBAL MEDICATIONS:accurate except also takes asa 81mg/day. - reports taking methocarbamol every other month or so CURRENT PSYCHIATRIC MEDICATIONS AND HOW PATIENT REPORTS TAKING: - venlafaxine XR 112.5mg/day (changed from 100mg IR to 112.5mg XR on 06/05/24. reports missing 1-2 doses in aa 2 week period on a weekend) - Melatonin 5-10mg qhs prn (takes 5mg 4-5x per week) SIDE EFFECTS:denies, initial drowsiness with venlafaxine, resolved with time. PAST PSYCHIATRIC MEDICATIONS: - venlafaxine 75mg capsules and tablets - melatonin: tried OTC and helped him fall alseep a little quicker but didnt stay asleep long. O: VITALS/LABS: BP: 128/74 (07/31/2024 13:07) PULSE: 84 (07/31/2024 13:07) WEIGHT: 290 lb [131.54 kg] (07/31/2024 13:07) CBC WITH DIFFERENTIAL; BLOOD Radha. Date: 01/24/24 16:01 99/99/99 00:00 Test Name Result Result Units Range WBC 8.88 K/mcL 4.0 - 11.0 RBC 5.59 M/mcL 4.1 - 5.8 HGB 16.7 g/dl 12.1 - 17.2 HCT 51.1 H % 38 - 51 MCV 91.4 fl 80 - 100 MCH 29.9 pg 26 - 32 MCHC 32.7 g/dl 32.0 - 37.5 PLATELET 195 K/mcL 130 - 400 MPV 10.2 fL 8.9 - 12.7 RDW-CV 13.3 % 11.5 - 14.5 CBC WITH DIFFERENTIAL; BLOOD Radha. Date: 01/24/24 16:01 99// 00:00 Test Name Result Result Units Range WBC 8.88 K/mcL 4.0 - 11.0 RBC 5.59 M/mcL 4.1 - 5.8 HGB 16.7 g/dl 12.1 - 17.2 HCT 51.1 H % 38 - 51 MCV 91.4 fl 80 - 100 MCH 29.9 pg 26 - 32 MCHC 32.7 g/dl 32.0 - 37.5 PLATELET 195 K/mcL 130 - 400 MPV 10.2 fL 8.9 - 12.7 RDW-CV 13.3 % 11.5 - 14.5 COMPREHENSIVE METABOLIC PANEL (TOPC) - INVALID TEST NAME COMPREHENSIVE METABOLIC PANEL; BLOOD Radha. Date: 07/31/24 13:46 01/24/24 16:00 Test Name Result Result Units Range GLUCOSE 136 H 67 L mg/dL 74 - 109 UREA NITROGEN 17 15 mg/dL 7 - 25 CREATININE 1.3 1.5 H mg/dL 0.57 - 1.25 SODIUM 139 140 mmol/L 136 - 145 POTASSIUM 4.0 4.1 mmol/L 3.5 - 5.1 CHLORIDE 105 103 mmol/L 98 - 107 CO2 28 28 mmol/L 21 - 31 CALCIUM 9.2 9.6 mg/dL 8.6 - 10.3 PROTEIN,TOTAL 6.9 7.3 g/dl 6.4 - 8.9 ALBUMIN 4.5 4.9 g/dL 3.5 - 5.7 TOT. BILIRUBIN 0.5 0.8 mg/dL 0.3 - 1.0 ALKALINE PHOSPH 64 59 U/L 34 - 104 SGOT(AST) 28 49 H U/L 13 - 39 SGPT(ALT) 51 51 U/L 7 - 52 EGFR 67 57 - Collection DT Spec HGB A1C 07/31/2024 13:46 BLOOD 5.6 01/24/2024 16:00 BLOOD 5.3 5.6 (07/31/24 13:46) CHOL: 114 (07/31/24 13:46) HDL: 31 (07/31/24 13:46) TRI (07/31/24 13:46) calcLDL: 35 (07/31/24 13:46) Collection DT Spec calcLDL HDL CHOL TRIG 07/31/2024 13:46 BLOOD 35 31 114 238 TSH 1.9834 (02/02/23 09:34) ASSESSMENT: Patient with h/o anxiety, depression. Pt with no change in mental health symptoms from last appointment, venlafaxine has been beneficial and well tolerated. mental health symptoms are currently managable. discontinuation symptoms with missed doses improved following transition from IR tablets to XR capsules. sleep has improved some with melatonin, he agrees to trial increased melatonin dose for residual sleep disturbances. pt is adherent with cpap. reviewed appropriate sleep hygeine. Pertinent labs have been reviewed and are appropriate for treatment plan decribed below. PLAN: - continue melatonin 5-10mg qhs prn (encouraged pt to trial 10mg qhs) - continue venlafaxine XR 112.5mg daily - Provided education regarding sleep hygeine and recommended behavioral modifications to sleep routine including but not limited to restricting screen time, developing a relaxing nigthttime routine, consistent sleep and wake times, getting up to do a relaxing activity if unable to fall asleep or fall back asleep within 30 min, avoiding/restricting daytime napping. provided education regarding potential impact of medications on sleep and provided education regarding appropriate time of taking medications to limit sleep disruption. provided education regarding impact of caffeiine, nicotine, and other substances on sleep. Provided education regarding CBT-I. continue to maintain cpap adherence and f/u with sleep medicine as indicated. - Provided education regarding importance of taking medications consistently without missing doses. Provided education regarding potential for medication nonadherence to impact efficacy of psychotropics and potentially increase risk of adverse effects and/or discontinuation symptoms. Provided education regarding strategies that may be utilized to improve medication adherence, including but not limited to, use of medication organizers and alarms/reminders. -The following Crisis Plan was discussed with the [place]. verbalized understanding. - Contact local mental health clinic with any questions or if symptoms worsen. Provided patient with contact information for clinic. - Call the [facility] Crisis Line [phone] then press 1 in case of crisis/suicidal thoughts. - Come to the Emergency Room in case of emergency, like suicidal thoughts with plan or increased severity of symptoms. - Call 911 in case of life threatening emergency. - Risks, benefits, alternatives, and potential side effects were discussed with the . [place] has verbalized agreement with treatment plan and has participated in shared decision making. - The risk associated with operating a vehicle, a machine, using tools, or performing potentially dangerous behaviors while taking psychiatric medication was explained. The patient appeared to understand the information and accepted treatment and the associated risks. Patient consented to treatment plan. -The patient was instructed on the dangers of alcohol/illicit drug use and abuse. Patient was also instructed on the dangers of combining alcohol/ illicit drugs with his medications. Patient voiced an understanding of these instructions. Patient was provided with education on availability of [facility] services including psychotherapy and medication assisted treatments. -The patient was provided with education on available psychotherapy services including EBPs. - counseled on confidentiality and limits of confidentiality in this setting. -All questions were answered today in clinic. -Return to clinic: 09/12/24 with psychiatry T= 30 minutes N-MEDICATION RECONCILIATION: Review of medications and allergies at the time of this encounter included: Local and remote allergies, active and pending prescriptions dispensed from this [place] (local) and dispensed from another [place] or [facility] facility (remote) as well as [...] answered NKA Active Outpatient Medications (including Supplies): DICLOFENAC NA 1% TOP GEL APPLY 4 GRAMS TO SKIN TWICE A DAY ACTIVE NEEDED TO AFFECTED JOINT(S) DIRECTED FOR PAIN (USE ENCLOSED DOSING CARD TO ACCURATELY MEASURE EACH DOSE) Indication: FOR PAIN AND INFLAMMATION ERGOCALCIF 1,250MCG (D2-50,000UNIT) CAP TAKE 1 CAPSULE BY ACTIVE MOUTH ONCE WEEKLY Indication: FOR VITAMIN SUPPLEMENT MELATONIN 5MG CAP/TAB TAKE 1-2 CAPSULE/TABLET BY MOUTH AT ACTIVE BEDTIME NEEDED Indication: FOR SLEEP MELOXICAM 15MG TAB TAKE ONE TABLET BY MOUTH ONCE DAILY ACTIVE Indication: FOR PAIN AND INFLAMMATION METHOCARBAMOL 750MG TAB TAKE ONE TABLET BY MOUTH FOUR ACTIVE TIMES A DAY Indication: FOR MUSCLE SPASM VENLAFAXINE HCL 37.5MG 24HR SA CAP TAKE ONE CAPSULE BY ACTIVE MOUTH ONCE DAILY TO BE TAKEN WITH 75MG CAPSULE FOR TOTAL OF 112.5MG EVERY DAY Indication: FOR MENTAL HEALTH VENLAFAXINE HCL 75MG 24HR SA CAP TAKE ONE CAPSULE BY MOUTH ACTIVE ONCE DAILY TO BE TAKEN WITH 37.5MG [...] SKIN ONCE EVERY WEEK Indication: FOR DIABETES 11 Total Medications /blayne/ VISH DISLA CLINICAL ASSEMBLER TYPE BAR AND SEGMENT Signed: 08/26/2024 07:55 Receipt Acknowledged By: 08/26/2024 11:30 /blayne/ DOMINIQUE COPPOLA MD Attending Physician, Psychiatry [facility] [employer]
--- OUTSIDE RECORDS SUMMARY | 2024-08-28 11:00 | XMS_ITS ---
Author Name [facility] Organization [facility] Address [address] [place] [address] Care Team Providers Care Windows Mobile Developer Name Role Phone EMMY TYLER Primary Care Provider Unavailabl e Selected Encounter This section includes the information on record at [facility] for the Encounter. Date/Time Encounter Type Encounter Description Reason Provider Source Aug 28, 2024 03:00 PM GEL-ONE PM&RS PHYSICIAN ICD-10-CM M25.569 Pain in unspecified knee SUICOVENKAT Jean Paul Encounter Template Text not used by ID Assessments - Encounter Diagnoses This section includes the primary and secondary diagnoses documented for the Encounter. Date/Time Primary/Secondary Diagnosis Diagnosis Name Provider Source Aug 28, 2024 03:00 PM PRIMARY Pain in unspecified knee SUICVENKAT Jenkins [facility] Aug 28, 2024 03:00 PM SECONDARY Pain in left knee SUICO,VENKAT Fontenot [facility] Plan of Treatment: Future Appointments (+ 6 months) and Future Tests (+/- 45 days) The Plan of Treatment section includes future care activities for the patient from all ID treatmentfacilities. This section includes future appointments and future orders which are active, pending or scheduled. Future Appointments This section includes appointments that were scheduled to occur 6 months from the date of the Encounter, up to a maximum of 20 appointments. The data comes from all ID treatment facilities. Appointment Date/Time Appointment Type Appointme nt Facility Name Sep 04, 2024 03:00 PM AMBULATORY - PSYCHIATRY AN [facility] Sep 12, 2024 03:30 PM AMBULATORY - PSYCHIATRY TO [facility] Oct 01, 2024 04:30 PM AMBULATORY - PSYCHIATRY TO [facility] Oct 08, 2024 04:30 PM AMBULATORY - PSYCHIATRY TO [facility] Oct 22, 2024 04:30 PM AMBULATORY - PSYCHIATRY TO [facility] Nov 05, 2024 04:30 PM AMBULATORY - PSYCHIATRY TO [facility] Nov 19, 2024 04:30 PM AMBULATORY - PSYCHIATRY TO [facility] Nov 26, 2024 04:30 PM AMBULATORY - PSYCHIATRY TO [facility] Dec 03, 2024 04:30 PM AMBULATORY - PSYCHIATRY TO [facility] Dec 10, 2024 04:30 PM AMBULATORY - PSYCHIATRY TO [facility] December 17, 2024 04:30 PM AMBULATORY - PSYCHIATRY TO [facility] Jan 28, 2025 02:30 PM AMBULATORY - PSYCHIATRY TO [facility] Feb 09, 2025 03:30 PM AMBULATORY - PSYCHIATRY TO [facility] Active, Pending, and Scheduled Orders This section includes a listing of several types of active, pending, and scheduled orders, including clinic medications orders, diagnostic test orders, procedure orders and consult orders; where the start date of the order is 45 days before the date of the Encounter or 45 days after the date of theEncounter. The data comes from all ID treatment facilities. Test Date/Time Test Type Test Details Facility Name Jul 15, 2024 12:00 AM Laboratory - Chemi stry Order OCCULT BLOOD,FIT X1 SCREEN STOOL FECES SP [facility] Jul 31, 2024 12:00 AM Laboratory - Chemi stry Order OCCULT BLOOD,FIT X1 SCREEN STOOL FECES WC [facility] Jul 31, 2024 01:32 PM Laboratory - Chemi stry Order CBC W/O DIFF. EDTA BLOOD SP ONCE [facility] Sep 04, 2024 03:57 PM Consult Order JOE URRUTIA TEAM OUTPT [facility] Boilermaking Supervisor's Choice [facility] Lab Results: +/- 30 days of the encounter This section includes the Chemistry and Hematology Lab Results on record with [facility] for the patient. Radiology Reports and Pathology Reports are provided separately, in subsequent sections. Lab Results This section contains the Chemistry/Hematology Results that were resulted 30 days before or 30 daysafter the date of the Encounter. Date/Time Source Result Type Result - Unit Interpretation Reference Range Specimen Type Comment Jul 31, 2024 01:46 PM [facility] MICROALBUMIN URINE PANEL,RANDOM URINE,RA NDOM Specimen Type: URINE,RANDOM No comment entered. Ordering Provider: EMMY TYLER TOP SPOTTER Report Released Date/Time: Jul 31, 2024 01:32 PM Reporting Lab: [address] [address] Performing Lab: [address] [address] CREATININE 184 mg/dL MICROALBUMIN,RANDOM 1.6 mg/dL MICRO/CREAT RATIO 8.7 mg/g Jul 31, 2024 01:46 PM [facility] URINALYSIS URINE,RANDOM Specimen Type: URINE,RANDOM No comment entered. Ordering Provider: EMMY TYLER TOP SPOTTER Report Released Date/Time: Jul 31, 2024 01:32 PM Reporting Lab: [facility] [address] [facility] [address] Performing Lab: [facility] [address] [facility] [address] URINE COLOR YELLOW Yellow SPECIFIC GRAVITY 1.023 [...] Seen /[LPF] Jul 31, 2024 01:46 PM [facility] LIPID PROFILE BLOOD Specimen Type: BLOOD No comment entered. Ordering Provider: EMMY TYLER TOP SPOTTER Report Released Date/Time: Jul 31, 2024 01:32 PM Reporting Lab: [facility] [address] [facility] [address] Performing Lab: [facility] [address] [facility] [address] CHOLESTEROL 114 mg/dL <200 TRIGLYCERIDE 238 mg/dL HDL CHOLESTEROL 31 mg/dL LDL CHOLESTEROL,calc 35 mg/dL <130 Jul 31, 2024 01:46 PM [facility] COMPREHENSIVE METABOLIC PANEL BLOOD Specimen Type: BLOOD No comment entered. Ordering Provider: EMMY TYLER TOP SPOTTER Report Released Date/Time: Jul 31, 2024 01:32 PM Reporting Lab: [address] [facility] [address] Performing Lab: [address] [facility] [address] CREATININE 1.3 mg/dL 0.6-1.3 UREA NITROGEN 17 [...] 67 mL/min/{1.73_m2} Jul 31, 2024 01:46 PM [facility] HGB A1C (with eAG) BLOOD Specimen Type: BLOOD Comment: ~HGB A1C - Reference Range prior to 09/24/96: 3-6.1% Ordering Provider: EMMY TYLER TOP SPOTTER Report Released Date/Time: Jul 31, 2024 01:32 PM Reporting Lab: [address] [facility] [address] Performing Lab: [address] [facility] [address] HGB A1C 5.6 4.0-6.0 ESTIMATE AVG GLUCOSE 114 mg/dL Jul 31, 2024 01:46 PM [facility] TOTAL 25-HYDROXY VITAMIN D BLOOD Specimen Typ e: BLOOD No comment entered. Ordering Provider: EMMY TYLER TOP SPOTTER Report Released Date/Time: Jul 31, 2024 01:32 PM Reporting Lab: [facility] [address] [facility] [address] Performing Lab: [place] [id number] [facility] [address] TOTAL 25-HYDROXY VITAMIN D 12.0 ng/mL L 30 -100 Vital Signs: All taken on the encounter date This section contains inpatient and outpatient Vital Signs collected on the date of the Encounter. Date/Time Temperature Pulse Blood Pressure Respiratory Rate SP02 Pain Height Weight Body Mass Index Source Aug 28, 2024 02:45 PM 97.5 97 143/86 18 95 [address] [facility] Aug 28, 2024 02:45 PM [address] [facility] Social History: Smoking Status (Most current) and Tobacco Use (All prior to encounter date) This section includes the most current, and the historical, smoking and tobacco- related health factors from the ID facility where the Encounter took place. Current Smoking Status This section includes the most current smoking, or tobacco-related health factor, from the ID facility where the Encounter took place. Date/Time Current Smoking Status Comment Facil ity Nov 01, 2023 03:30 PM VA-TOBACCO USER EVERY DAY [facility] Tobacco Use History This section includes a history of the smoking, or tobacco-related health factors, that were collected on or before the date of the Encounter. The data comes from the ID facility where the Encounter took place. Date/Time Smoking Status/Tobacco Use Comment F acility Nov 01, 2023 03:30 PM VA-TOBACCO USE > 15 LESS THAN [address] [facility] Nov 01, 2023 03:30 PM VA-TOBACCO USE ADVICE [facility] Nov 01, 2023 03:30 PM VA-TOBACCO USE BOARD SAW RUNNER YES [facility] Nov 01, 2023 03:30 PM VA-TOBACCO USE MED NOTIFY PROVID ER [facility] Nov 01, 2023 03:30 PM VA-TOBACCO USER EVERY DAY [facility] Oct 20, 2022 10:30 AM VA-TOBACCO DOESNT USE WI 30 MIN WAKEUP [facility] Oct 20, 2022 10:30 AM VA-TOBACCO USE > 15 LESS THAN [address] [facility] Oct 20, 2022 10:30 AM VA-TOBACCO USE ADVICE [facility] Oct 20, 2022 10:30 AM VA-TOBACCO USE BOARD SA[place] RUNNER NO [facility] Oct 20, 2022 10:30 AM VA-TOBACCO USE MED NOTIFY PROVID ER [facility] Oct 20, 2022 10:30 AM ID-TOBACCO USER EVERY DAY [facility] Encounter Notes: All associated encounter notes This section contains the clinical notes associated to the Encounter. Date/Time Encounter Note(s) Provider Source Aug 28, 2024 02:46 PM PHYSICAL MEDICINE REHAB OUTPATIENT NOTE: LOCAL TITLE: PHYSICAL MEDICINE OUTPATIENT FOLLOW-UP STANDARD TITLE: PHYSICAL MEDICINE REHAB OUTPATIENT NOTE DATE OF NOTE: AUG 28, 2024@14:46 ENTRY DATE: AUG 28, 2024@14:46:27 AUTHOR: VENKAT ELLER COSIGNER: URGENCY: STATUS: COMPLETED CHIEF COMPLAINT: Bilateral knee pain HISTORY OF PRESENT ILLNESS: Pt here for repeat Durolane injections of bilateral knees. Reports new knee pain posteriorly in the left knee, but no acute injury to report; has been going on for a few weeks. Reports intermittent swelling of bilateral knees. Reports popping, locking, catching. Pain is 5/10 now and can get up to 10/10. He reports 50% pain relief that lasted about a few months, noting increased pain before Thanksgiving. Is using Mobic 7.5 mg as needed. Has Voltaren gel, does get good relief from this. REVIEW OF SYSTEMS: denies any CP or SOB; all other 10 systems reviewed and are negative except as above. ALL: No Remote Allergy/ADR Data available for this patient [facility] Patient has answered NKA MEDICATION: Active Outpatient Medications (including Supplies): Issue Date Status Last Fill Active Outpatient Medications Refills Expiration 1) DICLOFENAC NA 1% TOP GEL Qty: 100 for 30 ACTIVE Issue: 07/31/24 days Sig: APPLY 4 GRAMS TO SKIN TWICE A DAY Refills: 0 Last : 07/31/24 NEEDED TO AFFECTED JOINT(S) DIRECTED Expr : 08/30/24 FOR PAIN (USE ENCLOSED DOSING CARD TO ACCURATELY MEASURE EACH DOSE) Indication: FOR PAIN AND INFLAMMATION 2) ERGOCALCIF 1,250MCG (D2-50,000UNIT) CAP Qty: ACTIVE Issue: 08/01/24 9 for 60 days Sig: TAKE 1 CAPSULE BY MOUTH Refills: 3 Last : 08/01/24 ONCE WEEKLY Expr : 08/02/25 Indication: FOR VITAMIN SUPPLEMENT 3) MELATONIN 5MG CAP/TAB Qty: 90 for 45 days ACTIVE Issue: 08/26/24 Sig: TAKE 1-2 CAPSULE/TABLET BY MOUTH AT Refills: 3 Last : 09/04/24 BEDTIME NEEDED Expr : 08/27/25 Indication: FOR SLEEP 4) MELOXICAM 15MG TAB Qty: 90 for 90 days Sig: ACTIVE Issue: 07/31/24 TAKE ONE TABLET BY MOUTH ONCE DAILY Refills: 3 Last : 07/31/24 Indication: FOR PAIN AND INFLAMMATION Expr : 08/01/25 5) METHOCARBAMOL 750MG TAB Qty: 120 for 30 days ACTIVE Issue: 03/24/24 Sig: TAKE ONE TABLET BY MOUTH FOUR TIMES A Refills: 1 Last : 07/31/24 DAY Expr : 03/25/25 Indication: FOR MUSCLE SPASM 6) VENLAFAXINE HCL 37.5MG 24HR SA CAP Qty: 60 ACTIVE Issue: 08/26/24 for 60 days Sig: TAKE ONE CAPSULE BY MOUTH Refills: 2 Last : 08/26/24 ONCE DAILY TO BE TAKEN WITH 75MG CAPSULE Expr : 08/27/25 FOR TOTAL OF 112.5MG EVERY DAY Indication: FOR MENTAL HEALTH 7) VENLAFAXINE HCL 75MG 24HR SA CAP Qty: 60 for ACTIVE Issue: 08/26/24 60 days Sig: TAKE ONE CAPSULE BY MOUTH ONCE Refills: 2 Last : 08/26/24 DAILY TO BE TAKEN WITH 37.5MG CAPSULE FOR A Expr : 08/27/25 TOTAL OF 112.5MG EVERY DAY Indication: FOR MENTAL HEALTH Start Date Active Non-VA Medications Status Stop Date 1) Non-VA ATORVASTATIN CALCIUM 20MG TAB Sig: ACTIVE 10MG MOUTH ONCE DAILY Indication: FOR CHOLESTEROL 2) Non-VA IRBESARTAN 75MG TAB SiMG MOUTH ACTIVE ONCE DAILY Indication: FOR BLOOD PRESSURE 3) Non-VA OMEPRAZOLE 20MG EC CAP SiMG ACTIVE MOUTH EVERY EVENING Indication: FOR STOMACH ACID 4) Non-VA SEMAGLUTIDE 0.25MG/0.375ML INJ PEN ACTIVE 3ML Si.25MG UNDER THE SKIN ONCE EVERY WEEK Indication: FOR DIABETES 11 Total Medications PHYSICAL EXAM: HR: 97 (08/28/2024 14:45) BP: 143/86 (08/28/2024 14:45) O2: No data for BLOOD GASES Temp: 97.5 F [36.4 C] (08/28/2024 14:45) Pain: 5 (08/28/2024 14:45) 278 lb [126.10 kg] (08/28/2024 14:45) General: NAD. Psyche: Judgement and insight are intact Skin: there is no petechiae, purpura, or hematomas noted. Musculoskeletal exam: On inspection there is no gross deformities On palpation there is tenderness mainly located in anterior and through the joint line AROM/PROM full and intact Crepitus negative Strength testing 5/5 Neurologically, the patient is alert and oriented x3. Attention, memory, and language are appropriate. Sensation intact to light touch Gait is antalgic at times DIAGNOSTIC STUDIES: R knee x[facility] from [facility] on 02/15/2023: spurring along the tibial spines and interconylar notch is apprecited. This represents chronic and degenerative changes. This has not progressed sine the prior study. there is no acute process. No concerning effusion. Position the patella and the groove is satisfactory. PROCEDURE:KNEE 4 OR MORE VIEWS, dated:02/02/2023 9:30 AM REASON FOR STUDY: left knee pain FINDINGS: 4 projections of the left knee: Impression: Mild patellofemoral degenerative change. [id number] knee joint effusion. The patella is high riding, which may present with tracking issues. ASSESSMENT: 1. Bilateral knee pain 2. Bilateral patellofemoral syndrome PROCEDURE: 1. Informed consent completed 2. Patient states name, SSN (or ), procedure to be performed on Pt name:NANETTE CHOI JR Pt SSN:[id number] Pt :December 3. Pertinent medications, recent steroid treatments, and imaging reviewed, including anticoagulation and antimicrobial therapy, and labs below HgbA1C:HGB A1C: Collection DT Spec HGB A1C 01/24/2024 16:00 BLOOD 5.3 02/02/2023 09:34 BLOOD 5.4 5.3 (01/24/24 16:00) Plts:PLATELET (TOPC): 0 INR: CRP: ESR: 4. Site is marked if not immediately following informed consent process 5. Known allergies reviewed Patient has answered NKA *TIME OUT Checklist completed at today's appointment prior to the injections. PROCEDURE DETAILS Side: Bilateral Location: knee joint Image Guidance: No image guidance used Approach: lateral infrapatellar Skin Prep: Chloraprep stick TREATMENT: A 18G 1.5in needle was used for this procedure. Durolane 30mg/3ml Lot #[id number]; [id number] Bilateral procedure was completed with the same medication dosages. POST PROCEDURE NOTES: All needles were removed, and injection sites covered as needed with adhesive bandages. Patient tolerated the procedure. Bleeding: None Fluid aspirated: none IMMEDIATE COMPLICATIONS: None FOLLOW UP: Per clinic note PLAN: 1. RTC: 6 mos for possible repeat 2. Therapy: Encouraged to continue exercise program 3. DME/Assistive Device: Recommend continue to wear brace 4. Oral medication recommendations: medications reviewed with patient; continue per PCP 5. Interventions: durolane 6. Imaging: Independently reviewed images of the studies documented above and discussed results with pt. Pt expressed understanding and agreement of treatment plan. All questions answered. Portions of the note were taken from the previous note and modified as needed. Seen and examined with, procedure performed by Dr. Sully Montgomery MD [facility] PGY-4 DUROLANE REQUEST PLEASE NOTE: There is limited safety data for repeat courses of intra-aticular hyalgan preparations. Repeat courses should not be administered within 6 months of the last injection. Please answer the following questions to determine whether patient is eligible to receive Durolane: Does patient have a hypersensitivity or allergy to hyaluronate preparations? No Durolane is derived from radha sources. Caution is advised when administering to patients with a known allergy to radha proteins, feathers or eggs. Euflexxa may be a better option in these patients. Would you like to request Euflexxa instead or continue with Durolane request? Continue with Durolane request: Patient does not have radha allergy Does patient have a knee joint infection, skin disease or infection in the area of the injection site? No Durolane is contraindicated in patients with a cinnamon allergy, Synvisc-One can be used in patients with cinnamon allergy as an alternative. Patient is NOT allergic to cinnamon, will proceed with Durolane request. Does patient have documented symptomatic OA of the knee which interferes with functional activities and/or is associated with significant pain? Yes Has patient completed an adequate trial (2-3 months) of non-pharmacologic measures without improvement in pain/function? (examples: cane/crutches, bracing/orthotics, weight loss, physical therapy/exercise) Yes Has patient completed a therapeutic trial of at least 3 analgesics (examples: acetaminophen, topical capsaicin, topical NSAIDs, oral NSAIDs, or other oral analgesics - tramadol, opioids) without adequate improvement in pain/function or is patient not a candidate for NSAIDs or other oral analgesics? Yes Has patient trialed intra-articular corticosteroids without adequate improvement in pain/function or are there compelling reasons to avoid IA corticosteroids? Yes Have patient and provider elected to continue conservative (non-surgical) treatment for OA? Yes Patient eligible for Durolane, medication ordered. 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 Yes - DVPRS scale used to assess Location: bilateral knees [employer] Pain Rating Scale (DVPRS): 5 Interrupts some activities Pain Score: 5 Patient's acceptable pain goal: 0 No pain Weight and vital signs obtained this visit. P: To see a provider. /blayne/ PAIGE HARRIS LPN Signed: 08/28/2024 14:45 [address]E [address] [facility]
--- OUTSIDE RECORDS SUMMARY | 2024-09-04 11:00 | XMS_ITS | Encounter Summary ---
Author Name [facility] [facility] Address [address] [place] [address] Care Team Providers Care Air And Hydronic Balancing Technician Name Role Phone EMMY TYLER Primary Care Provider Unavailabl e Selected Encounter This section includes the information on record at [place] for the Encounter. Date/Time Encounter Type Encounter Description Reason Provider Source Sep 04, 2024 03:00 PM PSYTX W PT 30 [facility]UTES [facility] - IND ICD-10-CM F32.A Depression, unspecified RIMA ROGER NA A [facility] Encounter Template Text not used by [place] Assessments - Encounter Diagnoses This section includes the primary and secondary diagnoses documented for the Encounter. Date/Time Primary/Secondary Diagnosis Diagnosis Name Provider Source Sep 04, 2024 03:55 PM PRIMARY Depression, unspecified KYUNG ROGER A [facility] Sep 04, 2024 03:55 PM SECONDARY Anxiety disorder, unspecified ROBI ROGERIN A A [facility] Plan of Treatment: Future Appointments (+ 6 months) and Future Tests (+/- 45 days) The Plan of Treatment section includes future care activities for the patient from all [place] treatmentfacilities. This section includes future appointments and future orders which are active, pending or scheduled. Future Appointments This section includes appointments that were scheduled to occur 6 months from the date of the Encounter, up to a maximum of 20 appointments. The data comes from all [place] treatment facilities. Appointment Date/Time Appointment Type Appointme nt Facility Name Sep 12, 2024 03:30 PM [facility] Oct 01, 2024 04:30 PM [facility] Oct 08, 2024 04:30 PM [facility] Oct 22, 2024 04:30 PM [facility] Nov 05, 2024 04:30 PM [facility] Nov 19, 2024 04:30 PM [facility] Nov 26, 2024 04:30 PM [facility] Dec 03, 2024 04:30 PM [facility] Dec 10, 2024 04:30 PM [facility] December 17, 2024 04:30 PM [facility] Jan 28, 2025 02:30 PM [facility] Feb 09, 2025 03:30 PM [facility] Feb 26, 2025 03:00 PM AMBULATORY - REHAB MEDICIN E [facility] Active, Pending, and Scheduled Orders This section includes a listing of several types of active, pending, and scheduled orders, including clinic medications orders, diagnostic test orders, procedure orders and consult orders; where the start date of the order is 45 days before the date of the Encounter or 45 days after the date of theEncounter. The data comes from all [place] treatment facilities. Test Date/Time Test Type Test Details Facility Name Jul 31, 2024 12:00 AM Laboratory - Chemi stry Order OCCULT BLOOD,FIT X1 SCREEN STOOL FECES WC [facility] Jul 31, 2024 01:32 PM Laboratory - Chemi stry Order CBC W/O DIFF. EDTA BLOOD SP ONCE [facility] Sep 04, 2024 03:57 PM Consult Order JOE URRUTIA TEAM OUTPT GAVIN Cons Lawn Mower Repairer's Choice [facility] Social History: Smoking Status (Most current) and Tobacco Use (All prior to encounter date) This section includes the most current, and the historical, smoking and tobacco- related health factors from the [place] facility where the Encounter took place. Current Smoking Status This section includes the most current smoking, or tobacco-related health factor, from the [place] facility where the Encounter took place. Date/Time Current Smoking Status Comment Facil ity Nov 01, 2023 03:30 PM VA-TOBACCO USER EVERY DAY [facility] Tobacco Use History This section includes a history of the smoking, or tobacco-related health factors, that were collected on or before the date of the Encounter. The data comes from the [place] facility where the Encounter took place. 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 [facility] Nov 01, 2023 03:30 PM VA-TOBACCO USE MED NOTIFY PROVID ER [facility] Nov 01, 2023 03:30 PM VA-TOBACCO USER EVERY DAY [facility] Oct 20, 2022 10:30 AM VA-TOBACCO DOESNT USE WI 30 MIN WAKEUP [facility] Oct 20, 2022 10:30 AM VA-TOBACCO USE > 15 LESS THAN 30 YEARS [facility] Oct 20, 2022 10:30 AM VA-TOBACCO USE ADVICE [facility] Oct 20, 2022 10:30 AM VA-TOBACCO USE TETRYL WRINGER 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 Date/Time Encounter Note(s) Provider Source Sep 05, 2024 09:23 AM ADMINISTRATIVE NOT E: LOCAL TITLE: APPOINTMENT MANAGEMENT (MAILED_TO_PATIENT) STANDARD TITLE: ADMINISTRATIVE NOTE DATE OF NOTE: SEP 05, 2024@09:23 ENTRY DATE: SEP 05, 2024@09:23:36 AUTHOR: YULI KINNEY COSIGNER: URGENCY: STATUS: COMPLETED [facility] [address], [place] [address] SEP 05, 2024 [place] [id number] [facility] [address] [place] [id number] Dear Irvine: We have been unable to reach you by phone to schedule an appointment for you in the [facility] with Amina Luz. Please call the following number to schedule this appointment within 10 days from the date of this letter: Thank you, Mental Health Clinic [facility] is committed to maintaining a healthy environment for all staff, patients, and visitors. Effective May 13, 2019, all [place] campuses and clinics will be smoke-free. Please talk with your doctor if you are interested in any of our smoking cessation programs. YULI KINNEY [facility] Sep 04, 2024 03:27 PM PSYCHIATRY CASE JOSEFA MILAGRO NOTE: LOCAL TITLE: PSYCHIATRY CASE MANAGEMENT STANDARD TITLE: PSYCHIATRY TECHNICAL DOCUMENTATION SPECIALIST NOTE DATE OF NOTE: SEP 04, 2024@15:27 ENTRY DATE: SEP 04, 2024@15:27:30 AUTHOR: KYRIE ROGER COSIGNER: URGENCY: STATUS: COMPLETED MENTAL HEALTH CASE MANAGEMENT NOTE DATE OF CONTACT: Aug TIME: 1500 PATIENT IDENTIFYING DATA Name: NANETTE CHOI JR Date of :[birth year] SS#: [id number] Gender: MALE SC%:TINNITUS 10% SC INTERVERTEBRAL DISC SYNDROME 10% SC LIMITED EXTENSION OF KNEE 10% SC LIMITED EXTENSION OF KNEE 10% 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 Is this appointment conducted via [employer] [email or web address] [facility]: No If yes, please complete: DSM DIAGNOSTIC IMPRESSION: Per CPRS: Anxiety Depression per active problems on CPRS cover sheet Met with patient for 20 minutes. CM GOALS/OBJECTIVES: 1. Coordinate Mental Health Care 2. Monitor changes in psychosocial functioning 3. Assess for treatment needs/intensity The following status updates & case management needs were discussed today: Director Of Search Engine Optimization met with Irvine following RTC placed to bridge gap in therapy. Irvine reported his symptoms of anxiety have improved overall, denying any panic attacks since March. Irvine reported he what has been helpful to him is to be more consistent with medication, is adjusting well to medication changes and reports he has stopped bringing my work home and taking things so personal . Irvine noted concerns of increased depressive symptoms due to grief, stating that he has lost 3 family members over the past six months and reports two more that are terminally ill. reports that his two uncles that are terminal helped raise him when his father and noted this will be difficult for him. denied any SI/HI, intent or plans. reports sleep continues to be disrupted, noting on a good day I am getting five hours, on bad days 3-4 . reports he also continues to experience low energy, however stated that he is working 12 hour shifts and this can be difficult. Irvine reports he recently received shot to assist him with knee pain and notes improvement in pain levels, however states he does still have issues with my back. Irvine notes positive support from his and adult children and proudly discussed updates on how they are doing. reports overall mood is good and denied any acute safety concerns at this time. aware of upcoming appointments with Psy7 and SW73. Irvine advised that he has been assigned new MHTC and was introduced to her for warm handoff on the way out of clinic. Consult will be placed for MHTC introduction following EBP. was receptive. Irvine was also provided list of grief support resources to assist him. REFERRALS NEEDED:Consult for MHTC introduction following EBP CLINICAL REMINDERS CHECKED/COMPLETED? Yes (specify): None due at this time for SW PERTINENT MENTAL STATUS INFORMATION: Orientation: Person, Place, Time, Alert Speech: The patient's speech was logical, coherent and goal directed. Mood: The patient was euthymic. Affect: Calm Thought processes: no alterations Concentration: denies difficulty with focus or concentration Thought content: no alterations, denies delusions, denies hallucinations Insight: good Safety: SI and HI: The denied suicidal or homicidal ideations. expressed understanding of information provided and is aware of appropriate emergency numbers as well as the National Suicidal Prevention Hotline at (press 1 for Veterans) if they feel that they may be a harm to self or others. CM PLAN:Follow up after EBP with new MHTC provided verbal consent and agreement to plan:Yes MH KILN TENDER: BOB Adhikari INTESITY:Semi-annually RETURN TO CLINIC: On or around Jan /blayne/ KYRIE ROGER Supervisor [employer] Signed: 09/04/2024 15:55 KYRIE ROGER [facility]
--- OUTSIDE RECORDS SUMMARY | 2024-09-12 11:30 | XMS_ITS | Encounter Summary ---
Author Name [facility] Organization [facility] [place] Address [address] [place] [address] Care Team Providers Care Commercial Green Building Designer Name Role Phone EMMY TYLER Primary Care Provider Unavailabl e Selected Encounter This section includes the information on record at [place] for the Encounter. Date/Time Encounter Type Encounter Description Reason Provider Source Sep 12, 2024 03:30 PM OFFICE O/P EST LOW 20 MIN [facility] - IND ICD-10-CM F32.A Depression, unspecified OSINOWO,LATIFA T IHE Encounter Template Text not used by [place] Assessments - Encounter Diagnoses This section includes the primary and secondary diagnoses documented for the Encounter. Date/Time Primary/Secondary Diagnosis Diagnosis Name Provider Source Sep 12, 2024 05:20 PM PRIMARY Depression, unspecified OSINOWO,LATIFA T [facility] Sep 12, 2024 05:20 PM SECONDARY Anxiety disorder, unspecified OSINOWO,LATIFA T [facility] Sep 12, 2024 05:20 PM SECONDARY Low back pain, unspecified OSINOWO,L[facility]IFA T [facility] Sep 12, 2024 05:20 PM SECONDARY Obesity, unspecified OSINOWO,L[facility]IFA [facility] Sep 12, 2024 05:20 PM SECONDARY Obstructive sleep apnea (adult) (pediatric) OSINOWO,LATIFA T [facility] Sep 12, 2024 05:20 PM SECONDARY Type 2 diabetes mellitus without complications MASOUD COPPOLA [facility] Plan of Treatment: Future Appointments (+ 6 months) and Future Tests (+/- 45 days) The Plan of Treatment section includes future care activities for the patient from [facility] This section includes future appointments and future orders which are active, pending or scheduled. Future Appointments This section includes appointments that were scheduled to occur 6 months from the date of the Encounter, up to a maximum of 20 appointments. The data comes from all [facility]. Appointment Date/Time Appointment Type Appointme nt Facility Name Oct 01, 2024 04:30 PM AMBULATORY [place]RY [place] Oct 08, 2024 04:30 PM AMBULATORY [place] Oct 22, 2024 04:30 PM AMBULATORY - [place]RY [place] Nov 05, 2024 04:30 PM AMBULATORY - [place]RY [place] Nov 19, 2024 04:30 PM AMBULATORY - [place]ATRY [place] Nov 26, 2024 04:30 PM AMBULATORY - [place]IATRY [place] Dec 03, 2024 04:30 PM AMBULATORY - [place]ATRY [place] Dec 10, 2024 04:30 PM AMBULATORY - [place]RY [place] December 17, 2024 04:30 PM AMBULATORY - [place]IATRY [place] Jan 28, 2025 02:30 PM AMBULATORY - [place]ATRY [place] Feb 09, 2025 03:30 PM AMBULATORY - [place] [place] Feb 26, 2025 03:00 [facility] Active, Pending, and Scheduled Orders This section includes a listing of several types of active, pending, and scheduled orders, including clinic medications orders, diagnostic test orders, procedure orders and consult orders; where the start date of the order is 45 days before the date of the Encounter or 45 days after the date of theEncounter. The data comes from all [facility]. Test Date/Time Test Type Test Details Facility Name Jul 31, 2024 12:00 AM Laboratory - Chemi stry Order OCCULT BLOOD,FIT X1 SCREEN STOOL FECES WC [facility] Jul 31, 2024 01:32 PM Laboratory - Chemi stry Order CBC W/O DIFF. EDTA BLOOD SP ONCE [facility] Sep 04, 2024 03:57 PM Consult Order GLENDY URRUTIA TEAM OUTPT GAVIN Cons Solar Electric Installer's Choice [facility] Social History: Smoking Status (Most current) and Tobacco Use (All prior to encounter date) This section includes the most current, and the historical, smoking and tobacco- related health factors from the [place] facility where the Encounter took place. Current Smoking Status This section includes the most current smoking, or tobacco-related health factor, from the [place] facility where the Encounter took place. Date/Time Current Smoking Status Comment Facil ity Nov 01, 2023 03:30 PM VA-TOBACCO USER EVERY DAY [facility] Tobacco Use History This section includes a history of the smoking, or tobacco-related health factors, that were collected on or before the date of the Encounter. The data comes from the [place] facility where the Encounter took place. Date/Time Smoking Status/Tobacco Use Comment F acility Nov 01, 2023 03:30 PM VA-TOBACCO USE > 15 LESS THAN 30 YEARS [facility] Nov 01, 2023 03:30 PM VA-TOBACCO USE ADVICE [facility] Nov 01, 2023 03:30 PM VA-TOBACCO USE PLANISHING HAMMER OPERATOR YES [facility] Nov 01, 2023 03:30 PM VA-TOBACCO USE MED NOTIFY PROVID ER [facility] Nov 01, 2023 03:30 PM VA-TOBACCO USER EVERY DAY [facility] Oct 20, 2022 10:30 AM VA-TOBACCO DOESNT USE WI 30 MIN WAKEUP [facility] Oct 20, 2022 10:30 AM VA-TOBACCO USE > 15 LESS THAN 30 YEARS [facility] Oct 20, 2022 10:30 AM VA-TOBACCO USE ADVICE [facility] Oct 20, 2022 10:30 AM VA-TOBACCO USE PLANISHING HAMMER OPERATOR NO [facility] Oct 20, 2022 10:30 AM VA-TOBACCO USE MED NOTIFY PROVID ER [facility] Oct 20, 2022 10:30 AM VA-TOBACCO USER EVERY DAY [facility] Encounter Notes: All associated encounter notes This section contains the clinical notes associated to the Encounter. Date/Time Encounter Note(s) Provider Source Sep 12, 2024 03:05 PM PSYCHIATRY PHYSICI AN NOTE: LOCAL TITLE: PSYCHIATRY CLINIC STANDARD TITLE: PSYCHIATRY PHYSICIAN NOTE DATE OF NOTE: SEP 12, 2024@15:05 ENTRY DATE: SEP 12, 2024@15:05:18 AUTHOR: DOMINIQUE COPPOLA EXP COSIGNER: URGENCY: STATUS: COMPLETED PSYCHIATRY F/U VISIT 09/12/24 15:30 NANETTE CHOI LAST 4: December START/END TIMES: The [facility] consented to be seen for a face to face routine med review appointment. CC: Anxiety BRIEF HX OF PROBLEM REQUIRING FOLLOW-UP CARE: 49 yo MALE establishing care with the [facility] for the first time. Seen in Mar 2024. He has been having anxiety attacks since 1997 when he was in the [employer]. He was on psychotropic medication from his outside provider and was motivated to make medication adjustments and engage in therapy. CURRENT PSYCHIATRIC MEDICATION: Velafaxine 37.5 mg + 75mg(total 112.5mg) qpm for anxiety and mood. He denies s/e and reports good med compliance. Med iincrease has been helpful. O/E: Sleep-better with melatonin, gets 6-7 hrs now, but pain is still disruptive. Energy-improved somewhat since last visit. Appetite-god, wt is stable. Focus/ Memory-denies concerns. Anxiety-pt reports that he is managing his anxiety better with the medication. Mood- good . He denies si or hi. He denies feeling hopeless, helpless, worthless or like a burden to others. A/V/H-denies. Delusions-denies. Harshal/Hypomania-denies. OCD-denies. PSYCHIATRIC HISTORY: Pt denies past psych admissions, suicide attempts or s.i.b. Pt denies past use of medication for insomnia or anxiety. His community FP ORCHARD WORKER Esperanza Spicer, prescribed Venlafaxine for a couple of yrs for anxiety. Pt denies hx of prior psychiatric treatment. MHTC: Amina Luz. Pt reports that he starts therapy with Sera Langston in two weeks. ROS: PSYCHIATRIC: See notes above NEURO: Head Trauma: concussions from football in high school and in hand to hand training at the [employer]. L.O.C/ Seizures: pt denies. PSH: Appendectomy 1983 Knee arthroscopy 2020 TENS Unit for pain PHM: HLD Depression/anxiety Insomnia T2DM GERD HTN Tinnitus/hearing loss Lower back pain Cervicalgia Pain in shoulders, knees LE edema Peripheral neuropathy LEONIDAS SUBSTANCE USE HISTORY: Tobacco: chews one can a day - smokeless tobacco x 29yrs EtOH: occasional use 1-2 drinks, once a month Illicit Drugs: denies use or LEONCIO treatment Caffiene: drinks pop(mountain dew, coke, pepsi), 2-3 cans daily during the work week, 5-6 on Sat and Sun. SOCIAL HISTORY: Pt lives in his own home with Cheryl, two of his three children and two boxer dogs. 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 He switched from nights to days, still takes his medication in the evening. Finances: 40% sc for tinnitus and physical problems Leisure Recreation: woodworking; hunting; fishing. Stores his guns in a safe. HISTORY: Served in the [employer] for 4 yrs [id number]. 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 Pt was firing guns a lot as part of his job. Not deployed. Honorable discharge. 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 Cooperative, pleasant, good eye contact, nl pma. Slow, labored gait due to pain. SPEECH: nl MOOD: pretty good AFFECT: euthymic PERCEPTUAL DISTURBANCES: No hallucinations THOUGHT PROCESS AND ASSOCIATIONS: Logical and coherent THOUGHT CONTENT: No evidence of delusions or obsessions, denies suicidal and homicidal thoughts, intentions, and plans ORIENTATION: Fully oriented and overtly cognitively intact RECENT AND REMOTE MEMORY: Intact FUND OF KNOWLEGE: Adequate INSIGHT / JUDGMENT: fair PSYCHOMETRIC SUMMARY 01/24/2024 Results Score Depression (PHQ9): + 12 Anxiety (GAD7): + 14 DIAGNOSES (DSM-5): Anxiety Disorder Unspecified--per record Depressive Disorder Unspecified--per record Sleep apnea Obesity PLAN: RISK ASSESSMENT: A complete risk assessment / suicide screen has been completed. The patient does not currently present as a risk to himself or others. PHARMACOTHERAPY: -continue Venlafaxine 37.5 mg + 75mg(total 112.5mg) qpm for anxiety and mood(pt preference) Risks and benefits of antidepressant medication were discussed with the patient to include but not limited to the possibility of nausea, rash, vomiting, lowering the seizure threshold, diarrhea, sexual side effects, weight gain, suicidal thinking, harshal in the event of an undiagnosed bipolar illness, and other potential problems. The patient voiced understanding. PSYCHOTHERAPY -pt to follow up in therapy as scheduled. Supportive therapy provided with focus on symptom management, illness acceptance and stress reduction. MEDICAL Followed by EMMY TYLER NP. CONTACT: The patient was provided with my contact information, and was encouraged to call with any additional questions or concerns. Patient agreed to call 911, Hotline, or go to ER in case of emergencies. FOLLOW-UP: RTC - 4-5 months. Pt to get work note from [employer]. I met with the patient for 20 minutes, today. During that time, I provided medication management services. Active Outpatient Medications (including Supplies): Active Outpatient Medications Status 1) ERGOCALCIF 1,250MCG (D2-50,000UNIT) CAP TAKE 1 CAPSULE BY ACTIVE MOUTH ONCE WEEKLY Indication: FOR VITAMIN SUPPLEMENT 2) MELATONIN 5MG CAP/TAB TAKE 1-2 CAPSULE/TABLET BY MOUTH AT ACTIVE BEDTIME NEEDED Indication: FOR SLEEP 3) MELOXICAM 15MG TAB TAKE ONE TABLET BY MOUTH ONCE DAILY ACTIVE Indication: FOR PAIN AND INFLAMMATION 4) METHOCARBAMOL 750MG TAB TAKE ONE TABLET BY MOUTH FOUR TIMES ACTIVE A DAY Indication: FOR MUSCLE SPASM 5) VENLAFAXINE HCL 37.5MG 24HR SA CAP TAKE ONE CAPSULE BY MOUTH ACTIVE ONCE DAILY TO BE TAKEN WITH 75MG CAPSULE FOR TOTAL OF 112.5MG EVERY DAY Indication: FOR MENTAL HEALTH 6) VENLAFAXINE HCL 75MG 24HR SA CAP TAKE [...] SKIN ONCE EVERY WEEK Indication: FOR DIABETES 10 Total Medications NON VA MEDS: Medication list has been reconciled, inquired about over the counter meds and patient was advised to follow up with pharmacy for counseling. Profile of medications issued today has been discussed and patient verbalized understanding. CBC WITH DIFFERENTIAL; BLOOD Radha. Date: 01/24/24 16:01 00:00 Test Name Result Result Units Range [...] 13.3 % 11.5 - 14.5 COMPREHENSIVE METABOLIC PANEL; BLOOD Radha. Date: 07/31/24 [...] 7 - 52 EGFR 67 57 - No data available for: GLUCOSE,FASTING SLT - HGB A1C Collection DT Specimen Test Name Result Units Ref Range 07/31/2024 13:46 BLOOD !! HGB A1C 5.6 % 4.0 - 6.0 01/24/2024 16:00 BLOOD !! HGB A1C 5.3 % 4.0 - 6.0 !! Indicates COMMENTS AVAILABLE...Refer to Interim Lab Report. CHOL: 114 (07/31/24 13:46) HDL: 31 (07/31/24 13:46) TRI (07/31/24 13:46) calcLDL: 35 (07/31/24 13:46) TSH - 1.9834 (02/02/23 09:34) BODY MASS INDEX 41.1 (AUG 28, 2024@14:45:54) 42.9 (JUL 31, 2024@13:07:38) 41.2 (MAR 24, 2024@11:41:05) Blood Pressure - 143/86 (08/28/2024 14:45) SVS - WEIGHT Measurement DT WEIGHT LB(KG)[BMI] 08/28/2024 14:45 278(126.10)[41*] 07/31/2024 13:07 290(131.54)[43*] 03/24/2024 11:41 278.4(126.28)[41*] 02/18/2024 10:17 289(131.09)[43*] 01/24/2024 15:08 285(129.27)[42*] 11/01/2023 15:03 283.4(128.55)[42*] P-MEDICATION RECONCILIATION: Review of medications with the patient at the time of this encounter included: Patient local and remote allergies, active and pending prescriptions dispensed from this VA (local) and dispensed from another [place] or [facility] facility (remote) as well as local inpatient and clinic medications (IMOs), locally documented non-VA medications and local prescriptions that have or been discontinued in the past 90 days. With the exception of allergies, if a category is not listed below, it means there were no relevant medications for the patient. The patient/family member received an updated list of current medications as it relates to this specialty clinic appointment. Patient verbalized understanding. Local & Remote Allergies: Patient has answered NKA Active Outpatient Medications (including Supplies): Active Outpatient Medications Status 1) ERGOCALCIF 1,250MCG (D2-50,000UNIT) CAP TAKE 1 CAPSULE BY ACTIVE MOUTH ONCE WEEKLY Indication: FOR VITAMIN SUPPLEMENT 2) MELATONIN 5MG CAP/TAB TAKE 1-2 CAPSULE/TABLET BY MOUTH AT ACTIVE BEDTIME NEEDED Indication: FOR SLEEP 3) MELOXICAM 15MG TAB TAKE ONE TABLET BY MOUTH ONCE DAILY ACTIVE Indication: FOR PAIN AND INFLAMMATION 4) METHOCARBAMOL 750MG TAB TAKE ONE TABLET BY MOUTH FOUR TIMES ACTIVE A DAY Indication: FOR MUSCLE SPASM 5) VENLAFAXINE HCL 37.5MG 24HR SA CAP TAKE ONE CAPSULE BY MOUTH ACTIVE (S) ONCE DAILY TO BE TAKEN WITH 75MG CAPSULE FOR TOTAL OF 112.5MG EVERY DAY Indication: FOR MENTAL HEALTH 6) VENLAFAXINE HCL 75MG 24HR SA CAP TAKE [...] SKIN ONCE EVERY WEEK Indication: FOR DIABETES 10 Total Medications /es/ DOMINIQUE COPPOLA MD Attending Physician, Psychiatry Signed: 09/12/2024 17:21 DOMINIQUE COPPOLA [facility]
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
--- OUTSIDE RECORDS SUMMARY | 2024-10-08 12:30 | XMS_ITS | Encounter Summary ---
Author Name [facility] [place] [facility] [place] [facility] [place] Address [address] [place] [address] Care Team Providers Care Clinical Admissions Manager Name Role Phone EMMY TYLER Primary Care Provider Unavailabl e Selected Encounter This section includes the information on record at [place] for the Encounter. Date/Time Encounter Type Encounter Description Reason Provider Source Oct 08, 2024 04:30 PM PSYTX W PT 60 [facility]ES [facility] ICD-10-CM F41.9 Anxiety disorder, unspecified RITA PASTRANA Jean Paul Encounter Template Text not used by [place] Assessments - Encounter Diagnoses This section includes the primary and secondary diagnoses documented for the Encounter. Date/Time Primary/Secondary Diagnosis Diagnosis Name Provider Source Oct 08, 2024 05:30 PM PRIMARY Anxiety disorder, unspecified [facility] Oct 08, 2024 05:30 PM SECONDARY Depression, unspecified [facility] PASTRANA [facility] Plan of Treatment: Future Appointments (+ 6 months) and Future Tests (+/- 45 days) The Plan of Treatment section includes future care activities for the patient from all [place] treatmentfacilities. This section includes future appointments and future orders which are active, pending or scheduled. Future Appointments This section includes appointments that were scheduled to occur 6 months from the date of the Encounter, up to a maximum of 20 appointments. The data comes from all [place] treatment facilities. Appointment Date/Time Appointment Type Appointme nt Facility Name Oct 22, 2024 04:30 PM AMBULATORY - PS[facility]CHIATRY TO [facility] Nov 05, 2024 04:30 PM AMBULATORY - PSYCHIATRY TO [facility] Nov 19, 2024 04:30 PM AMBULATORY - PSYCHIATRY TO [facility] Nov 26, 2024 04:30 PM AMBULATORY - PSYCHIATRY TO [facility] Dec 03, 2024 04:30 PM AMBULATORY - PSYCHIATRY TO [facility] Dec 10, 2024 04:30 PM AMBULATORY - PSYCHIATRY TO [facility] December 17, 2024 04:30 PM AMBULATORY - PSYCHIATRY TO [facility] Jan 28, 2025 02:30 PM AMBULATORY - PSYCHIATRY TO [facility] Feb 09, 2025 03:30 PM AMBULATORY - PSYCHIATRY TO [facility] Feb 26, 2025 03:00 PM AMBULATORY - REHAB MEDICIN E [facility] Active, Pending, and Scheduled Orders This section includes a listing of several types of active, pending, and scheduled orders, including clinic medications orders, diagnostic test orders, procedure orders and consult orders; where the start date of the order is 45 days before the date of the Encounter or 45 days after the date of theEncounter. The data comes from all [place] treatment facilities. Test Date/Time Test Type Test Details Facility Name Sep 04, 2024 03:57 PM Consult Order JOE URRUTIA TEAM OUTPT [facility] Neurologist's Choice [facility] Nov 21, 2024 12:00 AM Laboratory - Chemi strshantanu Order OCCULT BLOOD FIT X1 SCREEN (MFP ONLY) STOOL FECES SP ~Order entered per FIT testing campaign [facility] Social History: Smoking Status (Most current) [...] place. Date/Time Current Smoking Status Comment Jonathan ity Nov 01, 2023 03:30 PM VA-TOBACCO USER EVERY DAY [facility] Tobacco Use History This section includes a history of the smoking, or tobacco-related health factors, that were collected on or before the date of the Encounter. The data comes from the [place] facility where the Encounter took place. 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 [facility] Nov 01, 2023 03:30 PM VA-TOBACCO USE MED NOTIFY PROVID ER [facility] Nov 01, 2023 03:30 PM VA-TOBACCO USER EVERY DAY [facility] Oct 20, 2022 10:30 AM VA-TOBACCO DOESNT USE WI 30 MIN WAKEUP [facility] Oct 20, 2022 10:30 AM VA-TOBACCO USE > 15 LESS THAN 30 YEARS [facility] Oct 20, 2022 10:30 AM VA-TOBACCO USE ADVICE [facility] Oct 20, 2022 10:30 AM VA-TOBACCO USE DAIRY EQUIPMENT MECHANIC NO [facility] Oct 20, 2022 10:30 AM VA-TOBACCO USE MED NOTIFY PROVID ER [facility] Oct 20, 2022 10:30 AM VA-TOBACCO USER EVERY DAY [facility] Encounter Notes: All associated encounter notes This section contains the clinical notes associated to the Encounter. Date/Time Encounter Note(s) Provider Source Oct 08, 2024 04:33 PM PSYCHIATRY NOTE: LOCAL TITLE: PSYCHIATRY INDIVIDUAL THERAPY STANDARD TITLE: PSYCHIATRY NOTE DATE OF NOTE: OCT 08, 2024@16:33 ENTRY DATE: OCT 08, 2024@16:33:11 AUTHOR: RITA PASTRANA COSIGNER: URGENCY: STATUS: COMPLETED INDIVIDUAL THERAPY SESSION Date: 10/08/2024 Time: 1326-1242 PATIENT IDENTIFYING DATA Name: ISAIAH CHOILO SRIDHAR PATTON Date of : December #: [id number] Gender: MALE SC%: 60 [place] was asked to provide Full Name, Date of , as well as Last Four of his/her Social Security Number as part of Patient identifying process. Visit conducted by synchronous telehealth. [place] verbal consent obtained. Location/emergency number confirmed. Environment surveyed and all participants identified. Virtual conference locked. Address of during this session: [address] [place] [address] Local Emergency Number for that address: [id number] Any other individuals present in the home during this session: None Any relevant contact information (e.g. PSP, For Any Other Individuals Present in the Home During Session): N/A Home Number: DSM-IV DIAGNOSTIC IMPRESSION: Anxiety, depression CURRENT SYMPTOMS/PROBLEM STATUS AND SESSION CONTENT (issues discussed): S: [place] reports having an overall good week. He states that he had some anxiety due to having some union meetings. We discussed the connection between thoughts, emotions, physical reactions, and behaviors. He will complete the thoughts, emotions, physical reactions, and behaviors homework. He seemed receptive of this session. O:MENTAL STATUS INFORMATION: Appearance and behavior: dressed appropriately, collaborative Orientations: x4 Speech: WNL Mood: Euthymic Affect: congruent with mood Thought process: logical and coherent Concentration: no difficulties noted Thought content: appropriate to conversation Insight: good Judgment: good Psychosis: None SI and HI: The [place] denied suicidal or homicidal ideations, plan, or [...] indicated, follow up appointment info, medication changes): [place] will return for continued therapy on 10/22/2024 @ 1630 /blayne/ RITA PASTRANA Social Work Signed: 10/08/2024 17:31 RITA PASTRANA [facility]
--- OUTSIDE RECORDS SUMMARY | 2024-10-22 12:30 | XMS_ITS | Encounter Summary ---
Author Name [facility] [place] [facility] [place] Address [address] [place] [address] Care Team Providers Care Slide Forming Machine Tender Name Role Phone EMMY TYLER Primary Care Provider Unavailabl e Selected Encounter This section includes the information on record at [place] for the Encounter. Date/Time Encounter Type Encounter Description Reason Provider Source Oct 22, 2024 04:30 PM PSYTX W PT 60 MINUTES [facility] ICD-10-CM F41.9 Anxiety disorder, unspecified RITA PASTRANA Jean Paul Encounter Template Text not used by [place] Assessments - Encounter Diagnoses This section includes the primary and secondary diagnoses documented for the Encounter. Date/Time Primary/Secondary Diagnosis Diagnosis Name Provider Source Oct 22, 2024 05:30 PM PRIMARY Anxiety disorder, unspecified [facility] PASTRA[facility] Oct 22, 2024 05:30 PM SECONDARY Depression, unspecified [facility] Plan of Treatment: Future Appointments (+ 6 months) and Future Tests (+/- 45 days) The Plan of Treatment section includes future care activities for the patient from all [place] treatmentfacilities. This section includes future appointments and future orders which are active, pending or scheduled. Future Appointments This section includes appointments that were scheduled to occur 6 months from the date of the Encounter, up to a maximum of 20 appointments. The data comes from all [place] treatment facilities. Appointment Date/Time Appointment Type Appointme nt Facility Name Nov 05, 2024 04:30 PM AMBULATORY - PSYCHIATRY TO [facility] Nov 19, 2024 04:30 PM AMBULATORY - PSYCHIATRY TO [facility] Nov 26, 2024 04:30 PM AMBULATORY - PSYCHIATRY TO [facility] Dec 03, 2024 04:30 PM AMBULATORY - PSYCHIATRY TO [facility] Dec 10, 2024 04:30 PM AMBULATORY - PSYCHIATRY TO [facility] December 17, 2024 04:30 PM AMBULATORY - PSYCHIATRY TO [facility] Jan 28, 2025 02:30 PM AMBULATORY - PSYCHIATRY TO [facility] Feb 09, 2025 03:30 PM AMBULATORY - PSYCHIATRY TO [facility] Feb 26, 2025 03:00 PM AMBULATORY - REHAB MEDICIN E [facility] Active, Pending, and Scheduled Orders This section includes a listing of several types of active, pending, and scheduled orders, including clinic medications orders, diagnostic test orders, procedure orders and consult orders; where the start date of the order is 45 days before the date of the Encounter or 45 days after the date of theEncounter. The data comes from all [place] treatment facilities. Test Date/Time Test Type Test Details Facility Name Nov 21, 2024 12:00 AM Laboratory - Chemi darryl Order OCCULT BLOOD FIT X1 SCREEN (MFP ONLY) STOOL FECES SP ~Order entered per FIT testing campaign [facility] Social History: Smoking Status (Most current) and Tobacco Use (All prior to encounter date) This section includes the most current, and the historical, smoking and tobacco- related health factors from the [place] facility where the Encounter took place. Current Smoking Status This section includes the most current smoking, or tobacco-related health factor, from the [place] facility where the Encounter took place. Date/Time Current Smoking Status Comment Jonathan ity Oct 13, 2024 02:46 PM VA-TOBACCO USE FORMER CIGARETTES [facility] Tobacco Use History This section includes a history of the smoking, or tobacco-related health factors, that were collected on or before the date of the Encounter. The data comes from the [place] facility where the Encounter took place. 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 [facility] Oct 13, 2024 02:46 PM VA-TOBACCO USE EVERY DAY OTHER T YPE [facility] Oct 13, 2024 02:46 PM VA-TOBACCO USE EVERY DAY SMOKELE SS [facility] Oct 13, 2024 02:46 PM VA-TOBACCO USE FORMER CIGARETTES [facility] Oct 13, 2024 02:46 PM VA-TOBACCO USE MED NO [facility] Nov 01, 2023 03:30 PM VA-TOBACCO DOESNT USE WI 30 MIN WAKEUP [facility] Nov 01, 2023 03:30 PM VA-TOBACCO USE > 15 LESS THAN 30 YEARS [facility] Nov 01, 2023 03:30 PM VA-TOBACCO USE ADVICE [facility] Nov 01, 2023 03:30 PM VA-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 [facility] Nov 01, 2023 03:30 PM VA-TOBACCO USE MED NOTIFY PROVID ER [facility] Nov 01, 2023 03:30 PM VA-TOBACCO USER EVERY DAY [facility] Oct 20, 2022 10:30 AM VA-TOBACCO DOESNT USE WI 30 MIN WAKEUP [facility] Oct 20, 2022 10:30 AM VA-TOBACCO USE > 15 LESS THAN 30 YEARS [facility] Oct 20, 2022 10:30 AM VA-TOBACCO USE ADVICE [facility] Oct 20, 2022 10:30 AM VA-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 Date/Time Encounter Note(s) Provider Source Oct 22, 2024 04:18 PM PSYCHIATRY NOTE: LOCAL TITLE: PSYCHIATRY INDIVIDUAL THERAPY STANDARD TITLE: PSYCHIATRY NOTE DATE OF NOTE: OCT 22, 2024@16:18 ENTRY DATE: OCT 22, 2024@16:18:33 AUTHOR: RITA PASTRANA COSIGNER: URGENCY: STATUS: COMPLETED INDIVIDUAL THERAPY SESSION Date: 10/22/2024 Time: 2541-6013 PATIENT IDENTIFYING DATA Name: NANETTE CHOI JR Date of : December #: [id number] Gender: MALE SC%: 60 [place] was asked to provide Full Name, Date of , as well as Last Four of his/her Social Security Number as part of Patient identifying process. Visit conducted by synchronous telehealth. [place] verbal consent obtained. Location/emergency number confirmed. Environment surveyed and all participants identified. Virtual conference locked. Address of [place] during this session: [address] [place] [address] Local Emergency Number for that address: [id number] Any other individuals present in the home during this session: None Any relevant contact information (e.g. PSP, For Any Other Individuals Present in the Home During Session): N/A Home Number: DSM-IV DIAGNOSTIC IMPRESSION: Anxiety, depression CURRENT SYMPTOMS/PROBLEM STATUS AND SESSION CONTENT (issues discussed): S: [place] reports having an overall good week. He states that he had some anxiety due to having some union meetings. We discussed cognitive distortions. He will complete the cognitive distortions homework. He seemed receptive of this session. [...] indicated, follow up appointment info, medication changes): [place] will return for continued therapy on 10/29/2024 @ 1630 /es/ RITA PASTRANA Social Work Signed: 10/22/2024 17:30 RITA PASTRANA [facility]
--- OUTSIDE RECORDS SUMMARY | 2024-11-05 12:30 | XMS_ITS | Encounter Summary ---
Author Name [facility] [place] Organization [facility] [place] Address [address] [place] [address] Care Team Providers Care Pest Technician Name Role Phone EMMY TYLER Primary Care Provider Unavailabl e Selected Encounter This section includes the information on record at [place] for the Encounter. Date/Time Encounter Type Encounter Description Reason Provider Source Nov 05, 2024 04:30 PM PSYTX W PT 60 MINUTES [facility] ICD-10-CM F41.9 Anxiety disorder, unspecified RITA PASTRANA Jean Paul Encounter Template Text not used by [place] Assessments - Encounter Diagnoses This section includes the primary and secondary diagnoses documented for the Encounter. Date/Time Primary/Secondary Diagnosis Diagnosis Name Provider Source Nov 05, 2024 05:29 PM PRIMARY Anxiety disorder, unspecified RITA PASTRANA [place] [facility] Nov 05, 2024 05:29 PM SECONDARY Depression, unspecified RITA PASTRANA [facility] [place] [facility] Plan of Treatment: Future Appointments (+ 6 months) and Future Tests (+/- 45 days) The Plan of Treatment section includes future care activities for the patient from all [place] treatmentfacilities. This section includes future appointments and future orders which are active, pending or scheduled. Future Appointments This section includes appointments that were scheduled to occur 6 months from the date of the Encounter, up to a maximum of 20 appointments. The data comes from all [place] treatment facilities. Appointment Date/Time Appointment Type Appointme nt Facility Name Nov 19, 2024 04:30 PM AMBULATORY - [facility]RY TO [facility] Nov 26, 2024 04:30 PM AMBULATORY - PSYCHIATRY TO [facility] Dec 03, 2024 04:30 PM AMBULATORY - PSYCHIATRY TO [facility] Dec 10, 2024 04:30 PM AMBULATORY - PSYCHIATRY TO [facility] December 17, 2024 04:30 PM AMBULATORY - PSYCHIATRY TO [facility] Jan 28, 2025 02:30 PM AMBULATORY - PSYCHIATRY TO [facility] Feb 09, 2025 03:30 PM AMBULATORY - PSYCHIATRY TO [facility] Feb 26, 2025 03:00 PM AMBULATORY - REHAB MEDICIN E [facility] Active, Pending, and Scheduled Orders This section includes a listing of several types of active, pending, and scheduled orders, including clinic medications orders, diagnostic test orders, procedure orders and consult orders; where the start date of the order is 45 days before the date of the Encounter or 45 days after the date of theEncounter. The data comes from all [place] treatment facilities. Test Date/Time Test Type Test Details Facility Name Nov 21, 2024 12:00 AM Laboratory - Chemi osmany Order OCCULT BLOOD FIT X1 SCREEN (MFP ONLY) STOOL FECES SP ~Order entered per FIT testing campaign [facility] Social History: Smoking Status (Most current) and Tobacco Use (All prior to encounter date) This section includes the most current, and the historical, smoking and tobacco- related health factors from the [place] facility where the Encounter took place. Current Smoking Status This section includes the most current smoking, or tobacco-related health factor, from the [place] facility where the Encounter took place. Date/Time Current Smoking Status Comment Jonathan ity Oct 13, 2024 02:46 PM VA-TOBACCO USE FORMER CIGARETTES [facility] Tobacco Use History This section includes a history of the smoking, or tobacco-related health factors, that were collected on or before the date of the Encounter. The data comes from the [place] facility where the Encounter took place. Date/Time Smoking Status/Tobacco Use Comment F acility Oct 13, 2024 02:46 PM VA-TOBACCO USE ADVICE [facility] Oct 13, 2024 02:46 PM VA-TOBACCO USE APPLICATIONS ENGINEERING MANAGER NO [facility] Oct 13, 2024 02:46 PM VA-TOBACCO USE EVERY DAY OTHER T YPE [facility] Oct 13, 2024 02:46 PM VA-TOBACCO USE EVERY DAY SMOKELE SS [facility] Oct 13, 2024 02:46 PM VA-TOBACCO USE FORMER CIGARETTES [facility] Oct 13, 2024 02:46 PM VA-TOBACCO USE MED NO [facility] Nov 01, 2023 03:30 PM VA-TOBACCO DOESNT USE WI 30 MIN WAKEUP [facility] Nov 01, 2023 03:30 PM VA-TOBACCO USE > 15 LESS THAN 30 YEARS [facility] Nov 01, 2023 03:30 PM VA-TOBACCO USE ADVICE [facility] Nov 01, 2023 03:30 PM VA-TOBACCO USE APPLICATIONS ENGINEERING MANAGER YES [facility] Nov 01, 2023 03:30 PM VA-TOBACCO USE MED NOTIFY PROVID ER [facility] Nov 01, 2023 03:30 PM VA-TOBACCO USER EVERY DAY [facility] Oct 20, 2022 10:30 AM VA-TOBACCO DOESNT USE WI 30 MIN WAKEUP [facility] Oct 20, 2022 10:30 AM VA-TOBACCO USE > 15 LESS THAN 30 YEARS [facility] Oct 20, 2022 10:30 AM VA-TOBACCO USE ADVICE [facility] Oct 20, 2022 10:30 AM VA-TOBACCO USE APPLICATIONS ENGINEERING MANAGER NO [facility] Oct 20, 2022 10:30 AM VA-TOBACCO USE MED NOTIFY PROVID ER [facility] Oct 20, 2022 10:30 AM VA-TOBACCO USER EVERY DAY [facility] Encounter Notes: All associated encounter notes This section contains the clinical notes associated to the Encounter. Date/Time Encounter Note(s) Provider Source Nov 05, 2024 04:04 PM PSYCHIATRY NOTE: LOCAL TITLE: PSYCHIATRY INDIVIDUAL THERAPY STANDARD TITLE: PSYCHIATRY NOTE DATE OF NOTE: NOV 05, 2024@16:04 ENTRY DATE: NOV 05, 2024@16:04:50 AUTHOR: RITA PASTRANA EXP COSIGNER: URGENCY: STATUS: COMPLETED INDIVIDUAL THERAPY SESSION Date: 11/05/2024 Time: PATIENT IDENTIFYING DATA Name: NANETTE CHOI JR Date of : December #: [id number] Gender: MALE SC%: 60 [place] was asked to provide Full Name, Date of , as well as Last Four of his/her Social Security Number as part of Patient identifying process. Visit conducted by synchronous telehealth. verbal consent obtained. Location/emergency number confirmed. Environment surveyed and all participants identified. Virtual conference locked. Address of during this session: [address] [place] [address] Local Emergency Number for that address: [id number] Any other individuals present in the home during this session: None Any relevant contact information (e.g. PSP, For Any Other Individuals Present in the Home During Session): N/A Home Number: DSM-IV DIAGNOSTIC IMPRESSION: Anxiety, depression CURRENT SYMPTOMS/PROBLEM STATUS AND SESSION CONTENT (issues discussed): S: reports having an overall tough week. He states that he lost two Uncles the past week. One was expected and the other was not. He reports that it has been challenging for his family but he feels he is doing his best to manage. He reports getting a couple new puppies as well which have been positive for the family. We discussed control as a problem. He will complete the control as a problem homework. He seemed receptive of this session. O:MENTAL STATUS INFORMATION: Appearance and behavior: dressed appropriately, collaborative Orientations: x4 Speech: WNL Mood: Euthymic Affect: congruent with mood Thought process: logical and coherent Concentration: no difficulties noted Thought content: appropriate to conversation Insight: good Judgment: good Psychosis: None SI and HI: The [place] denied suicidal or homicidal ideations, plan, or [...] indicated, follow up appointment info, medication changes): [place] will return for continued therapy on 11/12/2024 @ 1630 /blayne/ RITA PASTRANA Social Work Signed: 11/05/2024 17:30 RITA PASTRANA [facility]
--- OUTSIDE RECORDS SUMMARY | 2024-11-19 12:30 | XMS_ITS | Encounter Summary ---
Author Name [facility] [place] [facility] [place] [facility] [place] Address [address] [place] [address] Care Team Providers Care Wood Tank Builder Name Role Phone EMMY TYLER Primary Care Provider Unavailabl e Selected Encounter This section includes the information on record at [place] for the Encounter. Date/Time Encounter Type Encounter Description Reason Provider Source Nov 19, 2024 04:30 PM PSYTX W PT 60 [facility]UTES [facility] ICD-10-CM F41.9 Anxiety disorder, unspecified RITA PASTRANA Jean Paul Encounter Template Text not used by [place] Assessments - Encounter Diagnoses This section includes the primary and secondary diagnoses documented for the Encounter. Date/Time Primary/Secondary Diagnosis Diagnosis Name Provider Source Nov 19, 2024 05:29 PM PRIMARY Anxiety disorder, unspecified [facility] [place] [facility] Nov 19, 2024 05:29 PM SECONDARY Depression, unspecified [facility] Plan of Treatment: Future Appointments (+ 6 months) and Future Tests (+/- 45 days) The Plan of Treatment section includes future care activities for the patient from all [place] treatmentfacilities. This section includes future appointments and future orders which are active, pending or scheduled. Future Appointments This section includes appointments that were scheduled to occur 6 months from the date of the Encounter, up to a maximum of 20 appointments. The data comes from all [place] treatment facilities. Appointment Date/Time Appointment Type Appointme nt Facility Name Nov 26, 2024 04:30 PM AMBULATORY - PS[facility]CHIATRY TO [facility] Dec 03, 2024 04:30 PM AMBULATORY - PSYCHIATRY TO [facility] Dec 10, 2024 04:30 PM AMBULATORY - PSYCHIATRY TO [facility] December 17, 2024 04:30 PM AMBULATORY - PSYCHIATRY TO [facility] Jan 28, 2025 02:30 PM AMBULATORY - PSYCHIATRY TO [facility] Feb 09, 2025 03:30 PM AMBULATORY - PSYCHIATRY TO [facility] Feb 26, 2025 03:00 PM AMBULATORY - REHAB MEDICIN E [facility] Active, Pending, and Scheduled Orders This section includes a listing of several types of active, pending, and scheduled orders, including clinic medications orders, diagnostic test orders, procedure orders and consult orders; where the start date of the order is 45 days before the date of the Encounter or 45 days after the date of theEncounter. The data comes from all [place] treatment facilities. Test Date/Time Test Type Test Details Facility Name Nov 21, 2024 12:00 AM Laboratory - Chemi darryl Order OCCULT BLOOD FIT X1 SCREEN (MFP ONLY) STOOL FECES SP ~Order entered per FIT testing campaign [facility] Social History: Smoking Status (Most current) and Tobacco Use (All prior to encounter date) This section includes the most current, and the historical, smoking and tobacco- related health factors from the [place] facility where the Encounter took place. Current Smoking Status This section includes the most current smoking, or tobacco-related health factor, from the [place] facility where the Encounter took place. Date/Time Current Smoking Status Comment Jonathan ity Oct 13, 2024 02:46 PM VA-TOBACCO USE FORMER CIGARETTES [facility] Tobacco Use History This section includes a history of the smoking, or tobacco-related health factors, that were collected on or before the date of the Encounter. The data comes from the [place] facility where the Encounter took place. Date/Time Smoking Status/Tobacco Use Comment F acility Oct 13, 2024 02:46 PM VA-TOBACCO USE ADVICE [facility] Oct 13, 2024 02:46 PM VA-TOBACCO USE COMBINATION PRESSER NO [facility] Oct 13, 2024 02:46 PM VA-TOBACCO USE EVERY DAY OTHER T YPE [facility] Oct 13, 2024 02:46 PM VA-TOBACCO USE EVERY DAY SMOKELE SS [facility] Oct 13, 2024 02:46 PM VA-TOBACCO USE FORMER CIGARETTES [facility] Oct 13, 2024 02:46 PM VA-TOBACCO USE MED NO [facility] Nov 01, 2023 03:30 PM VA-TOBACCO DOESNT USE WI 30 MIN WAKEUP [facility] Nov 01, 2023 03:30 PM VA-TOBACCO USE > 15 LESS THAN 30 YEARS [facility] Nov 01, 2023 03:30 PM VA-TOBACCO USE ADVICE [facility] Nov 01, 2023 03:30 PM VA-TOBACCO USE COMBINATION PRESSER YES [facility] Nov 01, 2023 03:30 PM VA-TOBACCO USE MED NOTIFY PROVID ER [facility] Nov 01, 2023 03:30 PM VA-TOBACCO USER EVERY DAY [facility] Oct 20, 2022 10:30 AM VA-TOBACCO DOESNT USE WI 30 MIN WAKEUP [facility] Oct 20, 2022 10:30 AM VA-TOBACCO USE > 15 LESS THAN 30 YEARS [facility] Oct 20, 2022 10:30 AM VA-TOBACCO USE ADVICE [facility] Oct 20, 2022 10:30 AM VA-TOBACCO USE COMBINATION PRESSER NO [facility] Oct 20, 2022 10:30 AM VA-TOBACCO USE MED NOTIFY PROVID ER [facility] Oct 20, 2022 10:30 AM VA-TOBACCO USER EVERY DAY [facility] Encounter Notes: All associated encounter notes This section contains the clinical notes associated to the Encounter. Date/Time Encounter Note(s) Provider Source Nov 19, 2024 04:29 PM PSYCHIATRY NOTE: LOCAL TITLE: PSYCHIATRY INDIVIDUAL THERAPY STANDARD TITLE: PSYCHIATRY NOTE DATE OF NOTE: NOV 19, 2024@16:29 ENTRY DATE: NOV 19, 2024@16:29:27 AUTHOR: RITA PASTRANA COSIGNER: URGENCY: STATUS: COMPLETED INDIVIDUAL THERAPY SESSION Date: 11/19/2024 Time: [id number] PATIENT IDENTIFYING DATA Name: ISAIAH CHOILO SRIDHAR Date of : December #: [id number] Gender: MALE SC%: 60 [place] was asked to provide Full Name, Date of , as well as Last Four of his/her Social Security Number as part of Patient identifying process. Visit conducted by synchronous telehealth. [place] verbal consent obtained. Location/emergency number confirmed. Environment surveyed and all participants identified. Virtual conference locked. Address of during this session: [address] [place] [address] Local Emergency Number for that address: [id number] Any other individuals present in the home during this session: None Any relevant contact information (e.g. PSP, For Any Other Individuals Present in the Home During Session): N/A Home Number: DSM-IV DIAGNOSTIC IMPRESSION: Anxiety, depression CURRENT SYMPTOMS/PROBLEM STATUS AND SESSION CONTENT (issues discussed): S: [place] reports having a good but busy couple of weeks. He reports that his mental health has been manageable. He reports spending a lot of time with his , daughter, and new puppies. We discussed defusion. He will complete the defusion homework. He seemed receptive of this session. [...] indicated, follow up appointment info, medication changes): [place] will return for continued therapy on 11/26/2024 @ 1630 /es/ RITA PASTRANA Social Work Signed: 11/19/2024 17:29 RITA PASTRANA [facility]
--- OUTSIDE RECORDS SUMMARY | 2024-11-26 12:30 | XMS_ITS | Encounter Summary ---
Author Name [facility] [place] Organization [facility] [place] Address [address] [place] [address] Care Team Providers Care Mixing Machine Attendant Name Role Phone EMMY TYLER Primary Care Provider Unavailabl e Selected Encounter This section includes the information on record at [place] for the Encounter. Date/Time Encounter Type Encounter Description Reason Provider Source Nov 26, 2024 04:30 PM PSYTX W PT 60 [facility]UTES [facility] ICD-10-CM F41.9 Anxiety disorder, unspecified RITA PASTRANA Jean Paul Encounter Template Text not used by [place] Assessments - Encounter Diagnoses This section includes the primary and secondary diagnoses documented for the Encounter. Date/Time Primary/Secondary Diagnosis Diagnosis Name Provider Source Nov 26, 2024 05:31 PM PRIMARY Anxiety disorder, unspecified [facility] Nov 26, 2024 05:31 PM SECONDARY Depression, unspecified [facility] Plan of Treatment: Future Appointments (+ 6 months) and Future Tests (+/- 45 days) The Plan of Treatment section includes future care activities for the patient from all [place] treatmentfacilities. This section includes future appointments and future orders which are active, pending or scheduled. Future Appointments This section includes appointments that were scheduled to occur 6 months from the date of the Encounter, up to a maximum of 20 appointments. The data comes from all [place] treatment facilities. Appointment Date/Time Appointment Type Appointme nt Facility Name Dec 03, 2024 04:30 PM AMBULATORY - PSYCHIATRY TO [facility] Dec 10, 2024 04:30 PM AMBULATORY - PSYCHIATRY TO [facility] December 17, 2024 04:30 PM AMBULATORY - PSYCHIATRY TO [facility] Jan 28, 2025 02:30 PM AMBULATORY - PSYCHIATRY TO [facility] Feb 09, 2025 03:30 PM AMBULATORY - PSYCHIATRY TO [facility] Feb 26, 2025 03:00 PM AMBULATORY - REHAB MEDICIN E [facility] Active, Pending, and Scheduled Orders This section includes a listing of several types of active, pending, and scheduled orders, including clinic medications orders, diagnostic test orders, procedure orders and consult orders; where the start date of the order is 45 days before the date of the Encounter or 45 days after the date of theEncounter. The data comes from all [place] treatment facilities. Test Date/Time Test Type Test Details Facility Name Nov 21, 2024 12:00 AM Laboratory - Chemi stry Order OCCULT BLOOD FIT X1 SCREEN (MFP ONLY) STOOL FECES SP ~Order entered per FIT testing campaign [facility] Social History: Smoking Status (Most current) and Tobacco Use (All prior to encounter date) This section includes the most current, and the historical, smoking and tobacco- related health factors from the [place] facility where the Encounter took place. Current Smoking Status This section includes the most current smoking, or tobacco-related health factor, from the [place] facility where the Encounter took place. Date/Time Current Smoking Status Comment Jonathan ity Oct 13, 2024 02:46 PM VA-TOBACCO USE FORMER CIGARETTES [facility] Tobacco Use History This section includes a history of the smoking, or tobacco-related health factors, that were collected on or before the date of the Encounter. The data comes from the [place] facility where the Encounter took place. Date/Time Smoking Status/Tobacco Use Comment F acility Oct 13, 2024 02:46 PM VA-TOBACCO USE ADVICE [facility] Oct 13, 2024 02:46 PM VA-TOBACCO USE SHIP BOAT OR BARGE MATE NO [facility] Oct 13, 2024 02:46 PM VA-TOBACCO USE EVERY DAY OTHER T YPE [facility] Oct 13, 2024 02:46 PM VA-TOBACCO USE EVERY DAY SMOKELE SS [facility] Oct 13, 2024 02:46 PM VA-TOBACCO USE FORMER CIGARETTES [facility] Oct 13, 2024 02:46 PM VA-TOBACCO USE MED NO [facility] Nov 01, 2023 03:30 PM VA-TOBACCO DOESNT USE WI 30 MIN WAKEUP [facility] Nov 01, 2023 03:30 PM VA-TOBACCO USE > 15 LESS THAN 30 YEARS [facility] Nov 01, 2023 03:30 PM VA-TOBACCO USE ADVICE [facility] Nov 01, 2023 03:30 PM VA-TOBACCO USE SHIP BOAT OR BARGE MATE YES [facility] Nov 01, 2023 03:30 PM VA-TOBACCO USE MED NOTIFY PROVID ER [facility] Nov 01, 2023 03:30 PM VA-TOBACCO USER EVERY DAY [facility] Oct 20, 2022 10:30 AM VA-TOBACCO DOESNT USE WI 30 MIN WAKEUP [facility] Oct 20, 2022 10:30 AM VA-TOBACCO USE > 15 LESS THAN 30 YEARS [facility] Oct 20, 2022 10:30 AM VA-TOBACCO USE ADVICE [facility] Oct 20, 2022 10:30 AM VA-TOBACCO USE SHIP BOAT OR BARGE MATE NO [facility] Oct 20, 2022 10:30 AM VA-TOBACCO USE MED NOTIFY PROVID ER [facility] Oct 20, 2022 10:30 AM VA-TOBACCO USER EVERY DAY [facility] Encounter Notes: All associated encounter notes This section contains the clinical notes associated to the Encounter. Date/Time Encounter Note(s) Provider Source Nov 26, 2024 04:16 PM PSYCHIATRY NOTE: LOCAL TITLE: PSYCHIATRY INDIVIDUAL THERAPY STANDARD TITLE: PSYCHIATRY NOTE DATE OF NOTE: NOV 26, 2024@16:16 ENTRY DATE: NOV 26, 2024@16:16:27 AUTHOR: RITA PASTRANA COSIGNER: URGENCY: STATUS: COMPLETED INDIVIDUAL THERAPY SESSION Date: 11/26/2024 Time: [id number] PATIENT IDENTIFYING DATA Name: NANETTE CHOI JR Date of : December #: [id number] Gender: MALE SC%: 60 was asked to provide Full Name, Date of , as well as Last Four of his/her Social Security Number as part of Patient identifying process. Visit conducted by synchronous telehealth. verbal consent obtained. Location/emergency number confirmed. Environment surveyed and all participants identified. Virtual conference locked. Address of [place] during this session: [address] [place] [address] Local Emergency Number for that address: [id number] Any other individuals present in the home during this session: None Any relevant contact information (e.g. PSP, For Any Other Individuals Present in the Home During Session): N/A Home Number: DSM-IV DIAGNOSTIC IMPRESSION: Anxiety, depression CURRENT SYMPTOMS/PROBLEM STATUS AND SESSION CONTENT (issues discussed): S: [place] reports having a good week overall. He reports that this week has been a calm week. He states that he continues to engage in workable behaviors. We discussed FEAR. He will complete the FEAR homework. He seemed receptive of this session. O:MENTAL STATUS INFORMATION: Appearance and behavior: dressed appropriately, collaborative Orientations: x4 Speech: WNL Mood: Euthymic Affect: congruent with mood Thought process: logical and coherent Concentration: no difficulties noted Thought content: appropriate to conversation Insight: good Judgment: good Psychosis: None SI and HI: The [place] denied suicidal or homicidal ideations, plan, or [...] indicated, follow up appointment info, medication changes): [place] will return for continued therapy on 12/03/2024 @ 1630 /es/ RITA PASTRANA Social Work Signed: 11/26/2024 17:31 RITA PASTRANA [facility]
--- OUTSIDE RECORDS SUMMARY | 2024-12-04 05:00 | XMS_ITS ---
Author Name [facility] Organization [facility] Address [address] [place] [address] Care Team Providers Care Lace Burn Out Tender Name Role Phone EMMY PACHECO Primary Care Provider Unavailabl e Selected Encounter This section includes the information on record at ID for the Encounter. Date/Time Encounter Type Encounter Description Reason Provider Source Dec 04, 2024 09:00 AM OFFICE O/P EST MOD 30 MIN PRIMARY CARE/MEDICINE ICD-10-CM M54.50 Low back pain, unspecified EMMY PACHECO AUTOMOTIVE AIRCONDITIONING MECHANIC IHE Encounter Template Text not used by ID Assessments - Encounter Diagnoses This section includes the primary and secondary diagnoses documented for the Encounter. Date/Time Primary/Secondary Diagnosis Diagnosis Name Provider Source Dec 04, 2024 09:35 AM PRIMARY Low back pain, unspecified EMMY PACHECO NP [facility] Dec 04, 2024 09:35 AM SECONDARY Nerve root and plexus disorder, unspecified EMMY PACHECO AUTOMOTIVE AIRCONDITIONING MECHANIC [facility] Plan of Treatment: Future Appointments (+ [...] Appointment Type Appointme nt Facility Name Dec 10, 2024 04:30 PM AMBULATORY - PSYCHIATRY TO [facility] December 17, 2024 04:30 PM AMBULATORY - PSYCHIATRY TO [facility] December 31, 2024 09:30 AM AMBULATORY - NONE [facility] Jan 28, 2025 02:30 PM AMBULATORY - PSYCHIATRY TO [facility] Feb 09, 2025 03:30 PM AMBULATORY - PSYCHIATRY TO [facility] Feb 26, 2025 03:00 PM AMBULATORY - REHAB MEDICIN E [facility] Apr 20, 2025 01:30 PM AMBULATORY - SURGERY [facility] Active, Pending, and Scheduled Orders This section includes a listing of several types of active, pending, and scheduled orders, including clinic medications orders, diagnostic test orders, procedure orders and consult orders; where the start date of the order is 45 days before the date of the Encounter or 45 days after the date of theEncounter. The data comes from all ID treatment [facility]. Test Date/Time Test Type Test Details Facility Name Nov 21, 2024 12:00 AM Laboratory - Chemi stry Order OCCULT BLOOD FIT X1 SCREEN (MFP ONLY) STOOL FECES SP ~Order entered per FIT testing campaign [facility] January 02, 2025 06:57 AM Consult Order NEUROSURGE RY CLINIC OUTPT Cons Car Inspector's Choice [facility] Social History: Smoking Status (Most current) and [...] Date/Time Current Smoking Status Comment Facil ity Oct 13, 2024 02:46 PM VA-TOBACCO USE FORMER CIGARETTES [facility] Tobacco Use History This section includes a history of the smoking, or tobacco-related health factors, that were collected on or before the date of the Encounter. The data comes from the ID facility where the Encounter took place. Date/Time Smoking Status/Tobacco Use Comment F acility Oct 13, 2024 02:46 PM VA-TOBACCO USE ADVICE [facility] Oct 13, 2024 02:46 PM VA-TOBACCO USE WOOL HAT FLANGER NO [facility] Oct 13, 2024 02:46 PM VA-TOBACCO USE EVERY DAY OTHER T YPE [facility] Oct 13, 2024 02:46 PM VA-TOBACCO USE EVERY DAY SMOKELE SS [facility] Oct 13, 2024 02:46 PM VA-TOBACCO USE FORMER CIGARETTES [facility] Oct 13, 2024 02:46 PM VA-TOBACCO USE MED NO [facility] Nov 01, 2023 03:30 PM VA-TOBACCO DOESNT USE WI 30 MIN WAKEUP [facility] Nov 01, 2023 03:30 PM VA-TOBACCO USE > 15 LESS THAN 30 YEARS [facility] Nov 01, 2023 03:30 PM VA-TOBACCO USE ADVICE [facility] Nov 01, 2023 03:30 PM VA-TOBACCO USE WOOL HAT FLANGER YES [facility] Nov 01, 2023 03:30 PM VA-TOBACCO USE MED NOTIFY PROVID ER [facility] Nov 01, 2023 03:30 PM VA-TOBACCO USER EVERY DAY [facility] Oct 20, 2022 10:30 AM VA-TOBACCO DOESNT USE WI 30 MIN WAKEUP [facility] Oct 20, 2022 10:30 AM VA-TOBACCO USE > 15 LESS THAN 30 YEARS [facility] Oct 20, 2022 10:30 AM VA-TOBACCO USE ADVICE [facility] Oct 20, 2022 10:30 AM VA-TOBACCO USE WOOL HAT FLANGER NO [facility] Oct 20, 2022 10:30 AM VA-TOBACCO USE MED NOTIFY PROVID [facility] Oct 20, 2022 10:30 AM VA-TOBACCO USER EVERY DAY [facility] Radiology Reports: +/- 30 days of the encounter Radiology Reports For cases when an order for radiology services may have been completed prior to the date of the Encounter, the report list includes the Radiology Reports that were completed up to 30 days before dateof the Encounter. For cases when an order for radiology services may have been completed after the date of the Encounter, the report list also includes the Radiology Reports that were completed up to30 days after date of the Encounter. The data comes from all [facility] facilities. Date/Time Radiology Report Provider Source December 31, 2024 08:03 AM MAGNETIC IMAGE,[facility] W/O: NANETTE CHOI JR [id number] -1975 M Exm Date: DECEMBER 31, 2024@08:03 Req Phys: EMMY PACHECO AUTOMOTIVE AIRCONDITIONING MECHANIC Pat Loc: [facility] PACT RED 4 AUTOMOTIVE AIRCONDITIONING MECHANIC (Req'g Loc) Img Loc: [facility] MRI Service: [place] [address] (Case [id number] COMPLETE)MAGNETIC IMAGE,LUMBAR W/O (MRI Detailed) CPT:84937 Reason for Study: pain Clinical History: No Does the patient have metal cardiac pacemaker, wires, or anyimplanted cardiac device? (Non-metal stents/filters are acceptable.) No Does the patient have any type of surgical implant? No Has the patient ever had a metal fragment in their eye or ametal-related injury? (If yes, please order orbital x-ray prior to the MRI.) No Is the patient claustrophobic or have PTSD? No Will the patient have problems lying flat and motionless forup to one hour or otherwise have problems tolerating the procedure? No Will the patient require anxiolytics (anti-anxiety) or pain medication? 49-year-old male with history of low back pain with radiculopathy down right side that has been getting worse over the past few months. PATIENT WEIGHT: 279 lb [126.55 kg] (12/04/2024 09:09) Report Status: Verified Date Reported: DECEMBER 31, 2024 Date Verified: DECEMBER 31, 2024 Tunnel Inspector E-Sig:/ES/SHAYNA ALVARENGA Report: MRI lumbar spine without contrast - 12/31/2024 9:55 AM HISTORY: pain COMPARISON: None. TECHNIQUE: MRI of the lumbar spine was obtained without contrast on a 1.5 Tania system. FINDINGS: There are five non-rib bearing lumbar type vertebral bodies. There is lumbar lordosis. Vertebral body heights are maintained. Vertebral body alignment is maintained. The facets are aligned. There are no focal concerning marrow signal abnormalities. There is disc desiccation in the lumbar spine more so at L3-S1 levels. There is moderate posterior disc height loss at L4-5 and L5-S1 levels. The visualized distal thoracic spinal cord and conus medullaris are without definite evidence of signal abnormality. The conus terminates at approximately L2 level. At L3-4, there is disc bulge. There is facet hypertrophy. There is ligamentum flavum thickening. There is mild spinal canal stenosis. There is mild foraminal stenosis. At L4-5, there is disc bulge. There is right subarticular disc protrusion. This may affect the descending right nerve roots in the right subarticular zone. There is moderate spinal canal stenosis. There is mild to moderate right and mild left foraminal stenosis. At L5-S1, there is mild disc bulge. There are right foraminal disc osteophytes. There is left subarticular/foraminal disc protrusion. There is no significant spinal canal stenosis. There is mild crowding of the left subarticular zone. There may be moderate to severe right and mild left foraminal stenosis. Impression: Disc herniation at L4-5 level may affect the descending right nerve roots in the right subarticular zone. Please correlate clinically. Please refer to the findings section of the report for further detail. Finalized by SHAYNA ALVARENGA MD On 12/31/2024 10:04 AM Primary Diagnostic Code: NO NOTIFICATION REQUIRED Primary Interpreting Staff: SHAYNA ALVARENGA, Attending Physician, Radiology (Tunnel Inspector) /KENDRA ALVARENGA,SHAYNA [facility] Encounter Notes: All associated encounter notes This section contains the clinical notes associated to the Encounter. Date/Time Encounter Note(s) Provider Source January 01, 2025 07:25 AM ADDENDUM: LOCAL TITLE: Addendum STANDARD TITLE: ADDENDUM DATE OF NOTE: JANUARY 01, 2025@07:25:22 ENTRY DATE: JANUARY 01, 2025@07:25:24 AUTHOR: EMMY PACHECO NP EXP COSIGNER: URGENCY: STATUS: COMPLETED Please call patient with recent MRI results. Please asked patient if he is wanting further evaluation with a neuro spine. Impression: Disc herniation at L4-5 level may affect the descending right nerve roots in the right subarticular zone. Please correlate clinically. Please refer to the findings section of the report for further detail. Finalized by SHAYNA ALVARENGA MD On 12/31/2024 10:04 AM /blayne/ EMMY PACHECO NP Nurse Practitioner, Cory GARCÍA Signed: 01/01/2025 07:26 Receipt Acknowledged By: 01/01/2025 15:44 /blayne/ KIT REESE, MELISSA --- Original Document --- 12/04/24 PRIMARY CARE: OUTPATIENT NOTE - STEPHNANETTEHERMILO WALLER JR (1975) - 12/04/2024 ASSESSMENT AND PLAN: Low back pain with radiculopathy of right leg Discussed with patient that we would order a MRI of his L-spine at this time. Encouraged patient to continue with home stretching, will order steroid Dosepak at this time and to continue with lidocaine patches, extra strength Tylenol and Flexeril that he was given at [facility]. Patient has done physical therapy in the past for his low back pain with radiculopathy. Patient states He has had this pain since 1989 when [place] it has recently gotten worse over the past few months. Encouraged patient to use TENS unit and heat and ice to affected area. Discussed with patient based on MRI results we will consider possible consult to Ortho neuro surgery and/or physical medicine and rehabilitation if warranted. Medication 5 days of Prednisone will be ordered at this time. Images MRI L-Spine Follow Up Discussed with patient to follow up with PCM for already established annual visit or sooner for any other issues or concerns. Reason for encounter: Acute Visit CO-MANAGED INFORMATION: - Orthopedic: [facility] [[email or web address]] - Primary Care Provider: Deepa HPI: 49-year-old male presents to clinic for acute visit for recent ER visit. Patient was seen at ER on 11/30/2024. X-ray of hip and pelvis showed no acute fracture or dislocation of the right hip, mild degenerative changes of the right hip and that the SI joints were intact. Lumbar spine showed no fracture or malalignment or destructive lesions posterior degenerative changes from L4-S1. Patient was given Tylenol Extra Strength, Lidocaine patches and Flexeril. Patient was discharged home with the following medications. Flexeril Lidocaine patches and Tylenol REVIEW OF SYSTEMS: Cardiac:. 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 - Tobacco use: Current Smoker: Yes. 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: [place] 1994 MEDICATIONS RECONCILIATION: ATORVASTATIN TAB - 10mg PO DAILY ERGOCALCIF 1,250MCG (D2-50,000UNIT) CAP - take 1 capsule PO once weekly IRBESARTAN TAB - 75mg PO DAILY MELATONIN 5MG CAP/TAB - take 1-2 capsule/tablet PO at Q BEDTIME PRN MELOXICAM 15MG TAB - take one tablet PO DAILY METHOCARBAMOL 750MG TAB - take one tablet PO four times a day OMEPRAZOLE CAP,EC - 20mg PO QPM SEMAGLUTIDE (OZEMPIC) INJ,SOLN - 0.25mg SUBQ once every week VENLAFAXINE HCL 37.5MG 24HR SA CAP - take one capsule PO DAILY VENLAFAXINE HCL 75MG 24HR SA CAP - take one capsule PO DAILY EXAM VITAL SIGNS: Date@Time[Site] BP HR Resp %O2 Pain Wt(kg) BMI Temp(C) 12/04/24 09:09[506] 129/81 68 18 99 7 126.6 41 37 Units mmHg /min /min % kg C PHYSICAL EXAM: Gen:(+) Oriented x3 HEENT:(+) TM Intact Neck:(+) Supple CV:(+) RRR Lungs:(+) CTAB Abd:(+) Soft Gait - Walks by self Neuro - CN Intact HEALTH MAINTENANCE Immunization History: - COVID: 01/28/21 - FLU: 09/09/21 Colon Cancer Screening Plan: FUTURE APPOINTMENT(S): Visit Date/Time Visit Information 12/10/24 04:30 PM [facility] 73 12/17/24 04:30 PM [facility] 73 01/28/25 02:30 PM [facility]-SW 75 02/09/25 03:30 PM [facility] MH-PSY 7 02/26/25 03:00 PM [facility] PM&R-MD 07/28/25 03:00 PM [facility] PACT RED 4 AUTOMOTIVE AIRCONDITIONING MECHANIC ABOUT THIS APPOINTMENT: Encounter type: Hkxw-[id number]. Time (F2F + Non-F2F): 30 min. RETURN VISIT: - Return visit: previously scheduled P-MEDICATION RECONCILIATION: Completed. /blayne/ EMMY PACHECO AUTOMOTIVE AIRCONDITIONING MECHANIC Nurse Practitioner, [facility] Signed: 12/04/2024 09:35 12/04/2024 ADDENDUM STATUS: COMPLETED Pt. was issued a replacement supply of TENs electrodes in the OPPT department this morning. /blayne/ RICKEY BURNS Environmental Services Supervisor Signed: 12/04/2024 12:42 /blayne/ Chaparro Silva PT Physical Therapist Cosigned: 12/04/2024 15:00 EMMY PACHECO NP [facility] Dec 04, 2024 09:31 AM PRIMARY CARE OUTPA [facility] NOTE: LOCAL TITLE: PRIMARY CARE STANDARD TITLE: PRIMARY CARE OUTPATIENT NOTE DATE OF NOTE: DEC 04, 2024@09:31 ENTRY DATE: DEC 04, 2024@09:31:05 AUTHOR: EMMY PACHECO NP EXP COSIGNER: URGENCY: STATUS: COMPLETED PRIMARY CARE Has ADDENDA OUTPATIENT NOTE - NANETTE CHOI JR (1975) - 12/04/2024 ASSESSMENT AND PLAN: Low back pain with radiculopathy of right leg Discussed with patient that we would order a MRI of his L-spine at this time. Encouraged patient to continue with home stretching, will order steroid Dosepak at this time and to continue with lidocaine patches, extra strength Tylenol and Flexeril that he was given at [facility]. Patient has done physical therapy in the past for his low back pain with radiculopathy. Patient states He has had this pain since 1989 when [place] it has recently gotten worse over the past few months. Encouraged patient to use TENS unit and heat and ice to affected area. Discussed with patient based on MRI results we will consider possible consult to Ortho neuro surgery and/or physical medicine and rehabilitation if warranted. Medication 5 days of Prednisone will be ordered at this time. Images MRI L-Spine Follow Up Discussed with patient to follow up with PCM for already established annual visit or sooner for any other issues or concerns. Reason for encounter: Acute Visit CO-MANAGED INFORMATION: - Orthopedic: [facility] [[email or web address]] - Primary Care Provider: Deepa HPI: 49-year-old male presents to clinic for acute visit for recent ER visit. Patient was seen at ER on 11/30/2024. X-ray of hip and pelvis showed no acute fracture or dislocation of the right hip, mild degenerative changes of the right hip and that the SI joints were intact. Lumbar spine showed no fracture or malalignment or destructive lesions posterior degenerative changes from L4-S1. Patient was given Tylenol Extra Strength, Lidocaine patches and Flexeril. Patient was discharged home with the following medications. Flexeril Lidocaine patches and Tylenol REVIEW OF SYSTEMS: Cardiac:. 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 - Tobacco use: Current Smoker: Yes. 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 MEDICATIONS RECONCILIATION: ATORVASTATIN TAB - 10mg PO DAILY ERGOCALCIF 1,250MCG (D2-50,000UNIT) CAP - take 1 capsule PO once weekly IRBESARTAN TAB - 75mg PO DAILY MELATONIN 5MG CAP/TAB - take 1-2 capsule/tablet PO at Q BEDTIME PRN MELOXICAM 15MG TAB - take one tablet PO DAILY METHOCARBAMOL 750MG TAB - take one tablet PO four times a day OMEPRAZOLE CAP,EC - 20mg PO QPM SEMAGLUTIDE (OZEMPIC) INJ,SOLN - 0.25mg SUBQ once every week VENLAFAXINE HCL 37.5MG 24HR SA CAP - take one capsule PO DAILY VENLAFAXINE HCL 75MG 24HR SA CAP - take one capsule PO DAILY EXAM VITAL SIGNS: Date@Time[Site] BP HR Resp %O2 Pain Wt(kg) BMI Temp(C) 12/04/24 09:09[506] 129/81 68 18 99 7 126.6 41 37 Units mmHg /min /min % kg C PHYSICAL EXAM: Gen:(+) Oriented x3 HEENT:(+) TM Intact Neck:(+) Supple CV:(+) RRR Lungs:(+) CTAB Abd:(+) Soft Gait - Walks by self Neuro - CN Intact HEALTH MAINTENANCE Immunization History: - COVID: 01/28/21 - FLU: 09/09/21 Colon Cancer Screening Plan: FUTURE APPOINTMENT(S): Visit Date/Time Visit Information 12/10/24 04:30 PM [facility] 12/17/24 04:30 PM [facility] 73 01/28/25 02:30 PM [facility]-V[facility] -SW 75 02/09/25 03:30 PM [facility] MH-PSY 7 02/26/25 03:00 PM [facility] PM&R-MD 07/28/25 03:00 PM [facility] PACT RED 4 AUTOMOTIVE AIRCONDITIONING MECHANIC ABOUT THIS APPOINTMENT: Encounter type: Ynwr-iu-bmlh. Time (F2F + Non-F2F): 30 min. RETURN VISIT: - Return visit: previously scheduled P-MEDICATION RECONCILIATION: Completed. /blayne/ EMMY PACHECO NP Nurse Practitioner Abel MEIR Signed: 12/04/2024 09:35 12/04/2024 ADDENDUM STATUS: COMPLETED Pt. was issued a replacement supply of TENs electrodes in the OPPT department this morning. /blayne/ RICKEY BURNS Environmental Services Supervisor Signed: 12/04/2024 12:42 /blayne/ Chaparro Silva PT Physical Therapist Cosigned: 12/04/2024 15:00 01/01/2025 ADDENDUM STATUS: COMPLETED Please call patient with recent MRI results. Please asked patient if he is wanting further evaluation with a neuro spine. Impression: Disc herniation at L4-5 level may affect the descending right nerve roots in the right subarticular zone. Please correlate clinically. Please refer to the findings section of the report for further detail. Finalized by SHAYNA ALVARENGA MD On 12/31/2024 10:04 AM /blayne/ EMMY PACHECO NP Nurse PractitionerCory Signed: 01/01/2025 07:26 Receipt Acknowledged By: * AWAITING SIGNATURE * AMADOR SIMON POLLY E NP [facility] Dec 04, 2024 09:03 AM PRIMARY CARE NURSI NG NOTE: LOCAL TITLE: PRIMARY CARE PREVENTIVE HEALTH STANDARD TITLE: PRIMARY CARE NURSING NOTE DATE OF NOTE: DEC 04, 2024@09:03 ENTRY DATE: DEC 04, 2024@09:03:59 AUTHOR: JAZMÍN MICHAEL COSIGNER: URGENCY: STATUS: COMPLETED S; Chief complaint/reason for rt, hip back, leg pain and numbness appointment O: Vital signs enered. P: To see a provider Emmy Pacheco NP Homelessness/Food Insecurity Screen: In the past 2 months, have you been living in stable housing that you own, rent, or stay in as part of a household? Yes - Living in stable housing. Are you worried or concerned that in the next 2 months you may NOT have stable housing that you own, rent, or stay in as part of a household? No - Not worried about housing near future The [place] reports the following: Within the past 12 months, you worried whether your food would run out before you got money to buy more. Never true Within the past 12 months, the food you bought just didn't last and you didn't have money to get more. Never true N-Pain Screen: Are you currently experiencing pain? Yes - DVPRS scale used to assess Location: rt back, hip,leg Defense and Veterans Pain Rating Scale (DVPRS): 7 Focus of attention, prevents doing daily activities Pain Score: 7 Patient's acceptable pain goal: 0 No pain N-MEDICATION RECONCILIATION: Review of medications and allergies at the time of this encounter included: Local and remote allergies, active and pending prescriptions dispensed from this ID (local) and dispensed from another ID or DoD facility (remote) as well as [...] answered NKA Active Outpatient Medications (including Supplies): ERGOCALCIF 1,250MCG (D2-50,000UNIT) CAP TAKE 1 CAPSULE [...] WEEK Indication: FOR DIABETES 10 Total Medications N HEALTHY SKIN REMINDER: Do you use sunscreen when [id number]? NO. Education provided on the benefits of sunscreen use. Do you check your skin regularly for new spots or changes in existing moles or lesions? YES. Do you require assistance to transfer or change position? NO. Are you confined to bed or a chair or are you a wheel-chair user? NO. Do you have any medical devices (e.g. artificial limb, braces, splint, oxygen tubing, Talbert or Condom catheter, tracheostomy, feeding tube, etc)? NO. Do you have a current pressure injury or history of a pressure injury (i.e. [place]) that is NOT related to a medical technologist generalist? NO. N-Advance Directive: Patient's advance directive status: Patient has an advance directive - NOT in the ID electronic medical record. Patient was instructed to bring a copy to social work when returning to the ID. PAVE Foot Check: A complete foot check was completed at this encounter. VISUAL INSPECTION: Includes inspection for skin breaks, deformity, erythema, trauma, pallor on elevation, dependent rubor, nail deformities, extensive callus and pitting edema. Visual exam results: Normal Comment: normal PEDAL PULSES: Includes palpation of dorsalis and posterior tibial pulses and signs/symptoms of vascular compromise like pain, pallor, paresthesia or paralysis. Present (even if diminished) Comment: present SENSORY CHECK: Includes 10 gram Monofilament ([place]-Luiz) test of sensation. Intact (Greater than or equal to 80% of sites checked) Abnormal (Less than 80% of sites checked): Intact Comment: intact LOW-RISK: LOW RISK INFORMATION PROVIDED: 1. Advised patient not to walk barefoot. 2. Explained the importance of daily foot checks for changes. 3. Stressed the importance of daily foot hygiene, including bathing and complete drying. N-HTN Assess Elevated BP>=140/90: The patient's most recent Blood Pressure recorded in the computer exceeds the recommended maximum of 139/89. Most recent Blood Pressure: 143/86 (08/28/2024 14:45) Enter In-Clinic Blood Pressure. Blood Pressure: 129/81 Automatic (if BP > 139/89 on first check, recheck with Manual) /blayne/ JAZMÍN MICHAEL LPN Signed: 12/04/2024 09:09 JAZMÍN MICHAEL [facility]
--- OUTSIDE RECORDS SUMMARY | 2024-12-10 12:30 | XMS_ITS | Encounter Summary ---
Author Name [facility] [place] [facility] [place] [facility] [place] Address [address] [place] [address] Care Team Providers Care District Superintendent Name Role Phone EMMY TYLER Primary Care Provider Unavailabl e Selected Encounter This section includes the information on record at [place] for the Encounter. Date/Time Encounter Type Encounter Description Reason Provider Source Dec 10, 2024 04:30 PM PSYTX W PT 60 [facility]UTES [facility] - IND ICD-10-CM F41.9 Anxiety disorder, unspecified RITA PASTRANA Jean Paul Encounter Template Text not used by [place] Assessments - Encounter Diagnoses This section includes the primary and secondary diagnoses documented for the Encounter. Date/Time Primary/Secondary Diagnosis Diagnosis Name Provider Source Dec 10, 2024 05:33 PM PRIMARY Anxiety disorder, unspecified RITA PASTRANA [place] [facility] Dec 10, 2024 05:33 PM SECONDARY Depression, unspecified [facility]JAERRITA [facility]EL [facility] Plan of Treatment: Future Appointments (+ 6 months) and Future Tests (+/- 45 days) The Plan of Treatment section includes future care activities for the patient from all [place] treatmentfacilities. This section includes future appointments and future orders which are active, pending or scheduled. Future Appointments This section includes appointments that were scheduled to occur 6 months from the date of the Encounter, up to a maximum of 20 appointments. The data comes from all [place] treatment facilities. Appointment Date/Time Appointment Type Appointme nt Facility Name December 17, 2024 04:30 PM AMBULATORY - PSYCHIATRY TO [facility] December 31, 2024 09:30 AM AMBULATORY - NONE ISABELLA MALIK [facility] Jan 28, 2025 02:30 PM AMBULATORY - PSYCHIATRY TO [facility] Feb 09, 2025 03:30 PM AMBULATORY - PSYCHIATRY TO [facility] Feb 26, 2025 03:00 PM AMBULATORY - REHAB MEDICIN E [facility] Apr 20, 2025 01:30 PM AMBULATORY - SURGERY [facility] Po [facility] Active, Pending, and Scheduled Orders This section includes a listing of several types of active, pending, and scheduled orders, including clinic medications orders, diagnostic test orders, procedure orders and consult orders; where the start date of the order is 45 days before the date of the Encounter or 45 days after the date of theEncounter. The data comes from all [place] treatment facilities. Test Date/Time Test Type Test Details Facility Name Nov 21, 2024 12:00 AM Laboratory - Chemi stry Order OCCULT BLOOD FIT X1 SCREEN (MFP ONLY) STOOL FECES SP ~Order entered per FIT testing campaign [facility] January 02, 2025 06:57 AM Consult Order NEUROSURGE RY CLINIC OUTPT Cons Director Of Category Management's Choice [facility] Social History: Smoking Status (Most current) and Tobacco Use (All prior to encounter date) This section includes the most current, and the historical, smoking and tobacco- related health factors from the [place] facility where the Encounter took place. Current Smoking Status This section includes the most current smoking, or tobacco-related health factor, from the [place] facility where the Encounter took place. Date/Time Current Smoking Status Comment Jonathan ity Oct 13, 2024 02:46 PM VA-TOBACCO USE FORMER CIGARETTES [facility] Tobacco Use History This section includes a history of the smoking, or tobacco-related health factors, that were collected on or before the date of the Encounter. The data comes from the [place] facility where the Encounter took place. Date/Time Smoking Status/Tobacco Use Comment F acility Oct 13, 2024 02:46 PM VA-TOBACCO USE ADVICE [facility] Oct 13, 2024 02:46 PM VA-TOBACCO USE HOSPITALITY JOB TITLES NO [facility] Oct 13, 2024 02:46 PM VA-TOBACCO USE EVERY DAY OTHER T YPE [facility] Oct 13, 2024 02:46 PM VA-TOBACCO USE EVERY DAY SMOKELE SS [facility] Oct 13, 2024 02:46 PM VA-TOBACCO USE FORMER CIGARETTES [facility] Oct 13, 2024 02:46 PM VA-TOBACCO USE MED NO [facility] Nov 01, 2023 03:30 PM VA-TOBACCO DOESNT USE WI 30 MIN WAKEUP [facility] Nov 01, 2023 03:30 PM VA-TOBACCO USE > 15 LESS THAN 30 YEARS [facility] Nov 01, 2023 03:30 PM VA-TOBACCO USE ADVICE [facility] Nov 01, 2023 03:30 PM VA-TOBACCO USE HOSPITALITY JOB TITLES YES [facility] Nov 01, 2023 03:30 PM VA-TOBACCO USE MED NOTIFY PROVID ER [facility] Nov 01, 2023 03:30 PM VA-TOBACCO USER EVERY DAY [facility] Oct 20, 2022 10:30 AM VA-TOBACCO DOESNT USE WI 30 MIN WAKEUP [facility] Oct 20, 2022 10:30 AM VA-TOBACCO USE > 15 LESS THAN 30 YEARS [facility] Oct 20, 2022 10:30 AM VA-TOBACCO USE ADVICE [facility] Oct 20, 2022 10:30 AM VA-TOBACCO USE HOSPITALITY JOB TITLES NO [facility] Oct 20, 2022 10:30 AM VA-TOBACCO USE MED NOTIFY PROVID ER [facility] Oct 20, 2022 10:30 AM VA-TOBACCO USER EVERY DAY [facility] Radiology Reports: +/- 30 days of the [...] the Encounter. The data comes from all [place] treatment facilities. Date/Time Radiology Report Provider Source December 31, 2024 08:03 AM MAGNETIC IMAGE,[facility] W/O: NANETTE CHOI JR [id number] -1975 M Exm Date: DECEMBER 31, 2024@08:03 Req Phys: EMMY TYLER STRATEGIC MARKETING ASSOCIATE Pat Loc: [facility] PACT RED 4 STRATEGIC MARKETING ASSOCIATE (Req'g Loc) Img Loc: [facility] MRI Service: [place] [address] (Case [id number] COMPLETE)MAGNETIC IMAGE,LUMBAR W/O (MRI Detailed) CPT:88732 Reason for Study: pain Clinical History: No [...] 31, 2024 Date Verified: DECEMBER 31, 2024 Painter E-Sig:/ES/SHAYNA ALVARENGA Report: MRI lumbar spine without [...] Interpreting Staff: SHAYNA ALVARENGA, Attending Physician, Radiology (Painter) /SHAYNA JHA [facility] Encounter Notes: All associated encounter notes This section contains the clinical notes associated to the Encounter. Date/Time Encounter Note(s) Provider Source Dec 10, 2024 04:28 PM PSYCHIATRY NOTE: LOCAL TITLE: PSYCHIATRY INDIVIDUAL THERAPY STANDARD TITLE: PSYCHIATRY NOTE DATE OF NOTE: DEC 10, 2024@16:28 ENTRY DATE: DEC 10, 2024@16:28:53 AUTHOR: RITA PASTRANA COSIGNER: URGENCY: STATUS: COMPLETED INDIVIDUAL THERAPY SESSION Date: 12/10/2024 Time: 2027-7426 PATIENT IDENTIFYING DATA Name: NANETTE CHOI JR Date of : December #: [id number] Gender: MALE SC%: 60 [place] was asked to provide Full Name, Date of , as well as Last Four of his/her Social Security Number as part of Patient identifying process. Visit conducted by synchronous telehealth. verbal consent obtained. Location/emergency number confirmed. Environment surveyed and all participants identified. Virtual conference locked. Address of during this session: [id number] [place] [address] Local Emergency Number for that address: [id number] Any other individuals present in the home during this session: None Any relevant contact information (e.g. PSP, For Any Other Individuals Present in the Home During Session): N/A Home Number: DSM-IV DIAGNOSTIC IMPRESSION: Anxiety, depression CURRENT SYMPTOMS/PROBLEM STATUS AND SESSION CONTENT (issues discussed): S: reports having a increased physical pain the past month. He reports that the [facility] has been helping [facility] manage his pain for a long time but it does not seem to be working as well this time. We discussed mindfulness. He will complete the mindfulness homework. He seemed receptive of this session. [...] indicated, follow up appointment info, medication changes): will return for continued therapy on 12/17/2024 @ 1630 /es/ RITA PASTRANA Social Work Signed: 12/10/2024 17:33 RITA PASTRANA [facility]
--- OUTSIDE RECORDS SUMMARY | 2024-12-17 12:30 | XMS_ITS | Encounter Summary ---
Author Name [facility] [place] Organization [facility] [place] Address [address] [place] [address] Care Team Providers Care Weatherization Technician Name Role Phone EMMY TYLER Primary Care Provider Unavailabl e Selected Encounter This section includes the information on record at [place] for the Encounter. Date/Time Encounter Type Encounter Description Reason Provider Source December 17, 2024 04:30 PM PSYTX W PT 45 MINUTES [facility] - [facility] ICD-10-CM F41.9 Anxiety disorder, unspecified RITA PASTRANA Jean Paul Encounter Template Text not used by [place] Assessments - Encounter Diagnoses This section includes the primary and secondary diagnoses documented for the Encounter. Date/Time Primary/Secondary Diagnosis Diagnosis Name Provider Source December 17, 2024 05:17 PM PRIMARY Anxiety disorder, unspecified RITA PASTRANA [place] [facility] December 17, 2024 05:17 PM SECONDARY Depression, unspecified CORNTANJAERRITA [facility]EL [place] [facility] Plan of Treatment: Future Appointments (+ 6 months) and Future Tests (+/- 45 days) The Plan of Treatment section includes future care activities for the patient from all [place] treatmentfacilities. This section includes future appointments and future orders which are active, pending or scheduled. Future Appointments This section includes appointments that were scheduled to occur 6 months from the date of the Encounter, up to a maximum of 20 appointments. The data comes from all [place] treatment facilities. Appointment Date/Time Appointment Type Appointme nt Facility Name December 31, 2024 09:30 AM [facility] - N[facility], [facility] 02:30 PM [facility] - [facility]ATRY TO [facility] Feb 09, 2025 03:30 PM AMBULATORY - PSYCHIATRY TO [facility] Feb 26, 2025 03:00 PM AMBULATORY - REHAB MEDICIN E [facility] Apr 20, 2025 01:30 PM AMBULATORY - [...] of theEncounter. The data comes from all [place] treatment facilities. Test Date/Time Test Type Test Details Facility Name Nov 21, 2024 12:00 AM Laboratory - Chemi stry Order OCCULT BLOOD FIT X1 SCREEN (MFP ONLY) STOOL FECES SP ~Order entered per FIT testing campaign [facility] January 02, 2025 06:57 AM Consult Order NEUROSURGE RY CLINIC OUTPT Cons Wool And Pelt Grader's Choice [facility] Social History: Smoking Status (Most current) and Tobacco Use (All prior to encounter date) This section includes the most current, and the historical, smoking and tobacco- related health factors from the [place] facility where the Encounter took place. Current Smoking Status This section includes the most current smoking, or tobacco-related health factor, from the [place] facility where the Encounter took place. Date/Time Current Smoking Status Comment Jonathan ity Oct 13, 2024 02:46 PM VA-TOBACCO USE FORMER CIGARETTES [facility] Tobacco Use History This section includes a history of the smoking, or tobacco-related health factors, that were collected on or before the date of the Encounter. The data comes from the [place] facility where the Encounter took place. Date/Time Smoking Status/Tobacco Use Comment F acility Oct 13, 2024 02:46 PM VA-TOBACCO USE ADVICE [facility] Oct 13, 2024 02:46 PM VA-TOBACCO USE UNDER WATER ASSISTANT NO [facility] Oct 13, 2024 02:46 PM VA-TOBACCO USE EVERY DAY OTHER T YPE [facility] Oct 13, 2024 02:46 PM VA-TOBACCO USE EVERY DAY SMOKELE SS [facility] Oct 13, 2024 02:46 PM VA-TOBACCO USE FORMER CIGARETTES [facility] Oct 13, 2024 02:46 PM VA-TOBACCO USE MED NO [facility] Nov 01, 2023 03:30 PM VA-TOBACCO DOESNT USE WI 30 MIN WAKEUP [facility] Nov 01, 2023 03:30 PM VA-TOBACCO USE > 15 LESS THAN 30 YEARS [facility] Nov 01, 2023 03:30 PM VA-TOBACCO USE ADVICE [facility] Nov 01, 2023 03:30 PM VA-TOBACCO USE UNDER WATER ASSISTANT YES [facility] Nov 01, 2023 03:30 PM VA-TOBACCO USE MED NOTIFY PROVID ER [facility] Nov 01, 2023 03:30 PM VA-TOBACCO USER EVERY DAY [facility] Oct 20, 2022 10:30 AM VA-TOBACCO DOESNT USE WI 30 MIN WAKEUP [facility] Oct 20, 2022 10:30 AM VA-TOBACCO USE > 15 LESS THAN 30 YEARS [facility] Oct 20, 2022 10:30 AM VA-TOBACCO USE ADVICE [facility] Oct 20, 2022 10:30 AM VA-TOBACCO USE UNDER WATER ASSISTANT NO [facility] Oct 20, 2022 10:30 AM VA-TOBACCO USE MED NOTIFY PROVID ER [facility] Oct 20, 2022 10:30 AM VA-TOBACCO USER EVERY DAY [facility] Radiology Reports: +/- 30 days of the [...] the Encounter. The data comes from all [facility] facilities. Date/Time Radiology Report Provider Source December 31, 2024 08:03 AM MAGNETIC IMAGE,[facility] W/O: NANETTE CHOI JR [id number] -1975 M Exm Date: DECEMBER 31, 2024@08:03 Req Phys: EMMY TYLER CONVEYOR MAN Pat Loc: [facility] PACT RED 4 CONVEYOR MAN (Req'g Loc) Img Loc: AA MRI Service: [place] [address] (Case [id number] COMPLETE)MAGNETIC IMAGE,LUMBAR W/O (MRI Detailed) CPT:73914 Reason for Study: pain Clinical History: No [...] 31, 2024 Date Verified: DECEMBER 31, 2024 Material Control Specialist E-Sig:/ES/SHAYNA ALVARENGA Report: MRI lumbar spine without [...] Interpreting Staff: SHAYNA ALVARENGA, Attending Physician, Radiology (Material Control Specialist) /SHAYNA JHA [facility] Encounter Notes: All associated encounter notes This section contains the clinical notes associated to the Encounter. Date/Time Encounter Note(s) Provider Source December 17, 2024 04:30 PM PSYCHIATRY NOTE: LOCAL TITLE: PSYCHIATRY INDIVIDUAL THERAPY STANDARD TITLE: PSYCHIATRY NOTE DATE OF NOTE: DECEMBER 17, 2024@16:30 ENTRY DATE: DECEMBER 17, 2024@16:30:54 AUTHOR: RITA PASTRANA COSIGNER: URGENCY: STATUS: COMPLETED INDIVIDUAL THERAPY SESSION Date: 12/10/2024 Time: 6840-9968 PATIENT IDENTIFYING DATA Name: NANETTE CHOI JR Date of : December #: [id number] Gender: MALE SC%: 60 [place] was asked to provide Full Name, Date of , as well as Last Four of his/her Social Security Number as part of Patient identifying process. Visit conducted by synchronous telehealth. verbal consent obtained. Location/emergency number confirmed. Environment surveyed and all participants identified. Virtual conference locked. Address of [place] during this session: [address] [place] [address] Local Emergency Number for that address: [id number] Any other individuals present in the home during this session: None Any relevant contact information (e.g. PSP, For Any Other Individuals Present in the Home During Session): N/A Home Number: DSM-IV DIAGNOSTIC IMPRESSION: Anxiety, depression CURRENT SYMPTOMS/PROBLEM STATUS AND SESSION CONTENT (issues discussed): S: reports he was able to get an appointment with ANTWANA to figure out his back pain. He is looking forward to that appointment. He reports practicing the mindfulness skills discussed in the previous session. We reviewed skills learned in therapy and discussed maintaining mental health after therapy completion. He has completed individual therapy and follow-up is already scheduled with MARLYN. He seemed receptive of this session. O:MENTAL STATUS INFORMATION: Appearance and behavior: dressed appropriately, collaborative Orientations: x4 Speech: WNL Mood: Euthymic Affect: congruent with mood Thought process: logical and coherent Concentration: no difficulties noted Thought content: appropriate to conversation Insight: good Judgment: good Psychosis: None SI and HI: The [place] denied suicidal or homicidal ideations, plan, or [...] indicated, follow up appointment info, medication changes): [place] has completed individual therapy for ACT. He has follow-up scheduled with his referring provider MARLYN on /es/ RITA PASTRANA Social Work Signed: 12/17/2024 17:18 RITA PASTRANA [facility]
--- OUTSIDE RECORDS SUMMARY | 2025-01-28 10:30 | XMS_ITS ---
Author Name [facility] ([place]) Organization [facility] [place]) Address [address] [place] [address] Care Team Providers Care Aquatic Scientist Name Role Phone EMMY TYLER Primary Care Provider Unavailabl e Selected Encounter This section includes the information on record at OR for the Encounter. Date/Time Encounter Type Encounter Description Reason Pro vider Source Jan 28, 2025 02:30 PM Outpatient Encounter [facility] - [facility] Encounter Template Text not used by OR Plan of Treatment: Future Appointments (+ 6 months) and Future Tests (+/- 45 days) The Plan of Treatment section includes future care activities for the patient from all OR treatmentfacilities. This section includes future appointments and future orders which are active, pending or scheduled. Future Appointments This section includes appointments that were scheduled to occur 6 months from the date of the Encounter, up to a maximum of 20 appointments. The data comes from all [place] treatment facilities. Appointment Date/Time Appointment Type Appointme nt Facility Name Feb 09, 2025 03:30 PM AMBULATORY - PSYCHIATRY TO [facility] Feb 26, 2025 03:00 PM AMBULATORY - REHAB MEDICIN E [facility] Apr 20, 2025 01:30 PM AMBULATORY - SURGERY [facility] Jul 24, 2025 03:30 PM AMBULATORY - PSYCHIATRY TO [facility] Jul 28, 2025 03:00 PM AMBULATORY - MEDICINE [facility] Active, Pending, and Scheduled Orders This section includes a listing of several types of active, pending, and scheduled orders, including clinic medications orders, diagnostic test orders, procedure orders and consult orders; where the start date of the order is 45 days before the date of the Encounter or 45 days after the date of theEncounter. The data comes from all [place] treatment facilities. Test Date/Time Test Type Test Details Facility Name January 02, 2025 06:57 AM Consult Order NEUROSURGE RY CLINIC OUTPT Cons Tool And Fixture Repairer's Choice [facility] Social History: Smoking Status (Most current) and Tobacco Use (All prior to encounter date) This section includes the most current, and the historical, smoking and tobacco- related health factors from the OR facility where the Encounter took place. Current Smoking Status This section includes the most current smoking, or tobacco-related health factor, from the OR facility where the Encounter took place. Date/Time Current Smoking Status Comment Facil ity Oct 13, 2024 02:46 PM VA-TOBACCO USE FORMER CIGARETTES [facility] Tobacco Use History This section includes a history of the smoking, or tobacco-related health factors, that were collected on or before the date of the Encounter. The data comes from the OR facility where the Encounter took place. Date/Time Smoking Status/Tobacco Use Comment F acility Oct 13, 2024 02:46 PM VA-TOBACCO USE ADVICE [facility] Oct 13, 2024 02:46 PM VA-TOBACCO USE PRECISION PRINTING WORKER NO [facility] Oct 13, 2024 02:46 PM VA-TOBACCO USE EVERY DAY OTHER T YPE [facility] Oct 13, 2024 02:46 PM VA-TOBACCO USE EVERY DAY SMOKELE SS [facility] Oct 13, 2024 02:46 PM VA-TOBACCO USE FORMER CIGARETTES [facility] Oct 13, 2024 02:46 PM VA-TOBACCO USE MED NO [facility] Nov 01, 2023 03:30 PM VA-TOBACCO DOESNT USE WI 30 MIN WAKEUP [facility] Nov 01, 2023 03:30 PM VA-TOBACCO USE > 15 LESS THAN 30 YEARS [facility] Nov 01, 2023 03:30 PM VA-TOBACCO USE ADVICE [facility] Nov 01, 2023 03:30 PM VA-TOBACCO USE PRECISION PRINTING WORKER YES [facility] Nov 01, 2023 03:30 PM VA-TOBACCO USE MED NOTIFY PROVID ER [facility] Nov 01, 2023 03:30 PM VA-TOBACCO USER EVERY DAY [facility] Oct 20, 2022 10:30 AM VA-TOBACCO DOESNT USE WI 30 MIN WAKEUP [facility] Oct 20, 2022 10:30 AM VA-TOBACCO USE > 15 LESS THAN 30 YEARS [facility] Oct 20, 2022 10:30 AM VA-TOBACCO USE ADVICE [facility] Oct 20, 2022 10:30 AM VA-TOBACCO USE PRECISION PRINTING WORKER NO [facility] Oct 20, 2022 10:30 AM VA-TOBACCO USE MED NOTIFY PROVID ER [facility] Oct 20, 2022 10:30 AM VA-TOBACCO USER EVERY DAY [facility] Radiology Reports: +/- 30 days of the [...] the Encounter. The data comes from all [facility] facilities. Date/Time Radiology Report Provider Source December 31, 2024 08:03 AM MAGNETIC IMAGE,LUM BAR W/O: NANETTE CHOI [id number] -[id number] M Exm Date: DECEMBER 31, 2024@08:03 Req Phys: EMMY TYLER STREET COMMISSIONER Pat Loc: [facility] [address] COMMISSIONER (Req'g Loc) Img Loc: [facility] MRI Service: [place] [address] (Case [id number] COMPLETE)MAGNETIC IMAGE,LUMBAR W/O (MRI Detailed) CPT:90385 Reason for Study: pain Clinical History: No [...] 31, 2024 Date Verified: DECEMBER 31, 2024 Shrimp Packer E-Sig:/ES/SHAYNA ALVARENGA Report: MRI lumbar spine without [...] Interpreting Staff: SHAYNA ALVARENGA, Attending Physician, Radiology (Shrimp Packer) /SHAYNA JHA [facility] Encounter Notes: All associated encounter notes This section contains the clinical notes associated to the Encounter. Date/Time Encounter Note(s) Provider Source Jan 28, 2025 03:01 PM ADMINISTRATIVE NOT E: LOCAL TITLE: APPOINTMENT MANAGEMENT (MAILED_TO_PATIENT) STANDARD TITLE: ADMINISTRATIVE NOTE DATE OF NOTE: JAN 28, 2025@15:01 ENTRY DATE: JAN 28, 2025@15:02:01 AUTHOR: YULI KINNEYIGNER: URGENCY: STATUS: COMPLETED [facility] [address] [place], [place] [address] JAN 28, 2025 STEPHNANETTE SRIDHAR [address] [address] [address] [address] [place] [id number] NOTICE OF APPOINTMENT NOT COMPLETED AT OR This is a notice that the following appointment was not attended by you: Clinic and location: [facility] with Amina Luz Date of appointment that was not completed: 01/28/2025 @1430 Please call the following number to reschedule this appointment within 10 days of the receipt of this notice.(Mon - Fri 8:00 AM to 4:00PM) [phone] Please note if you do not attend your appointment we may not able to meet your health care needs. This may include medication renewals and/or follow-up treatments. This does not change your eligibility for care through the [place]. Every effort will be made to provide you with excellent care. Please remember to take all of your medications on the day of your appointment. If you take medication in the morning, please take these medications unless you have been specifically instructed not to take your medications by your provider. Please bring in all of your medications to your appointment. Please do not fast unless you are instructed to do so by your provider. OR VAN OR SHUTTLE RIDERS Most appointments take one to two hours to complete. It is your own responsibility to arrange transportation if the van will arrive after your appointment begins or will leave before you have completed your appointment. TRAVEL PAY RECIPIENTS Please note: Individuals eligible for travel pay will be paid an amount calculated for the [place] hospital or outpatient clinic closest to their home that could provide the same service. Begin using My BrightContext to better manage your health care (and refill your prescriptions online) at www.autoGraph.va.gov If you have already addressed this issue, please disregard this letter. Thank you, [facility] is committed to maintaining a healthy environment for all staff, patients, and visitors. Effective May 13, 2019, all [place] campuses and clinics will be smoke-free. Please talk with your doctor if you are interested in any of our smoking cessation programs. YULI KINNEY [facility] Jan 28, 2025 02:48 PM NO SHOW NOTE: LOCAL TITLE: PSYCHIATRY NO SHOW - CANCEL - RESCHEDULE STANDARD TITLE: NO SHOW NOTE DATE OF NOTE: JAN 28, 2025@14:48 ENTRY DATE: JAN 28, 2025@14:48:21 AUTHOR: AMINA LUZ EXP COSIGNER: URGENCY: STATUS: COMPLETED Note Title: PSYCHIATRY NO SHOW - CANCEL - RESCHEDULE No Show Reason for Cancellation: Per A Notice 2019-(2), For mental health appointments, (inclusive of consults, return to clinic orders, and failure to report (no-show)), the minimum scheduling effort for scheduling/rescheduling totals of four attempts; three documented contact attempts by telephone on separate days, followed by a letter. [place] does NOT have a HRS-PRF, and did not attend scheduled appointment on Jan@14:30. [place] was NOT reachable by phone with the following results: Collections Associate attempted to contact [place] after not presenting to [facility] after 5 minutes of the appointment starting. Collections Associate left a hippa compliant message letting [place] know I would remain in the [facility] appt for 15 minutes and provided him with the [facility] phone number should he wish to reschedule. [place] will also be called by clinic MSAs, letter will be sent if patient cannot be reached by phone /blayne/ VENANCIO Hickman Leach Tank Tender Signed: 01/28/2025 14:49 Receipt Acknowledged By: 02/02/2025 06:54 /es/ MAJOR CHOPRA Retail Loan Officer 01/28/2025 15:00 /es/ YULI KINNEY Advanced MSA 01/30/2025 10:30 /es/ ASIF MODI ADVANCED CLERICAL PRODUCTION WORKER 02/02/2025 09:49 /es/ AMINA DE JESUS MSA [facility]
--- OUTSIDE RECORDS SUMMARY | 2025-02-09 11:30 | XMS_ITS | Encounter Summary ---
Author Name [facility] of [facility] [place]) Organization [facility] [place] [facility] [place] Address [address] [place] [address] Care Team Providers Care Earth Observations Chief Scientist Name Role Phone CRYSTAL PACHECO Primary Care Provider Unavailabl e Selected Encounter This section includes the information on record at [place] for the Encounter. Date/Time Encounter Type Encounter Description Reason Provider Source Feb 09, 2025 03:30 PM OFFICE O/P EST LOW 20 MIN [facility] - IND ICD-10-CM F32.A Depression, unspecified OSINOWO,LATIFA T IHE Encounter Template Text not used by [place] Assessments - Encounter Diagnoses This section includes the primary and secondary diagnoses documented for the Encounter. Date/Time Primary/Secondary Diagnosis Diagnosis Name Provider Source Feb 09, 2025 03:59 PM PRIMARY Depression, unspecified OSINOWO,LATIFA T [facility] Feb 09, 2025 03:59 PM SECONDARY Anxiety disorder, unspecified OSINOWO,LATIFA T [facility] Feb 09, 2025 03:59 PM SECONDARY Low back pain, unspecified OSINOWO,LATIFA T [facility] Feb 09, 2025 03:59 PM SECONDARY Type 2 diabetes mellitus without complications OSINOWO,LATIFA T [facility] Plan of Treatment: Future Appointments (+ 6 months) and Future Tests (+/- 45 days) The Plan of Treatment section includes future care activities for the patient from all VA treatmentfacilities. This section includes future appointments and future orders which are active, pending or scheduled. Future Appointments This section includes appointments that were scheduled to occur 6 months from the date of the Encounter, up to a maximum of 20 appointments. The data comes from all [facility]. Appointment Date/Time Appointment Type Appointme nt Facility Name Feb 26, 2025 03:00 PM AMBULATORY - REHAB MEDICIN E [facility] Apr 20, 2025 01:30 PM AMBULATORY - SURGERY [facility] Jul 24, 2025 03:30 PM AMBULATORY - [facility]ATRY TO [facility] Jul 28, 2025 03:00 PM AMBULATORY - MEDICINE [facility] Active, Pending, and Scheduled Orders This section includes a listing of several types of active, pending, and scheduled orders, including clinic medications orders, diagnostic test orders, procedure orders and consult orders; where the start date of the order is 45 days before the date of the Encounter or 45 days after the date of theEncounter. The data comes from all [facility]. Test Date/Time Test Type Test Details Facility Name January 02, 2025 06:57 AM Consult Order NEUROSURGE RY CLINIC OUTPT Cons Historian Dramatic Arts's Choice [facility] Vital Signs: All taken on the encounter date This section contains inpatient and outpatient Vital Signs collected on the date of the Encounter. Date/Time Temperature Pulse Blood Pressure Respiratory Rate SP02 Pain Height Weight Body Mass Index Source Feb 09, 2025 03:45 PM 292.77 lb 43 [facility] Social History: Smoking Status (Most current) and Tobacco Use (All prior to encounter date) This section includes the most current, and the historical, smoking and tobacco- related health factors from the [place] facility where the Encounter took place. Current Smoking Status This section includes the most current smoking, or tobacco-related health factor, from the [place] facility where the Encounter took place. Date/Time Current Smoking Status Comment Facil ity Oct 13, 2024 02:46 PM VA-TOBACCO USE FORMER CIGARETTES [facility] Tobacco Use History This section includes a history of the smoking, or tobacco-related health factors, that were collected on or before the date of the Encounter. The data comes from the [place] facility where the Encounter took place. Date/Time Smoking Status/Tobacco Use Comment F acility Oct 13, 2024 02:46 PM VA-TOBACCO USE ADVICE [facility] Oct 13, 2024 02:46 PM VA-TOBACCO USE SUPERVISOR COSTUMING NO [facility] Oct 13, 2024 02:46 PM VA-TOBACCO USE EVERY DAY OTHER T YPE [facility] Oct 13, 2024 02:46 PM VA-TOBACCO USE EVERY DAY SMOKELE SS [facility] Oct 13, 2024 02:46 PM VA-TOBACCO USE FORMER CIGARETTES [facility] Oct 13, 2024 02:46 PM VA-TOBACCO USE MED NO [facility] Nov 01, 2023 03:30 PM VA-TOBACCO DOESNT USE WI 30 MIN WAKEUP [facility] Nov 01, 2023 03:30 PM VA-TOBACCO USE > 15 LESS THAN 30 YEARS [facility] Nov 01, 2023 03:30 PM VA-TOBACCO USE ADVICE [facility] Nov 01, 2023 03:30 PM VA-TOBACCO USE SUPERVISOR COSTUMING YES [facility] Nov 01, 2023 03:30 PM VA-TOBACCO USE MED NOTIFY PROVID ER [facility] Nov 01, 2023 03:30 PM VA-TOBACCO USER EVERY DAY [facility] Oct 20, 2022 10:30 AM VA-TOBACCO DOESNT USE WI 30 MIN WAKEUP [facility] Oct 20, 2022 10:30 AM VA-TOBACCO USE > 15 LESS THAN 30 YEARS [facility] Oct 20, 2022 10:30 AM VA-TOBACCO USE ADVICE [facility] Oct 20, 2022 10:30 AM VA-TOBACCO USE SUPERVISOR COSTUMING NO [facility] Oct 20, 2022 10:30 AM VA-TOBACCO USE MED NOTIFY PROVID ER [facility] Oct 20, 2022 10:30 AM VA-TOBACCO USER EVERY DAY [facility] Encounter Notes: All associated encounter notes This section contains the clinical notes associated to the Encounter. Date/Time Encounter Note(s) Provider Source Feb 09, 2025 12:02 PM PSYCHIATRY PHYSICI AN NOTE: LOCAL TITLE: PSYCHIATRY CLINIC STANDARD TITLE: PSYCHIATRY PHYSICIAN NOTE DATE OF NOTE: FEB 09, 2025@12:02 ENTRY DATE: FEB 09, 2025@12:03:20 AUTHOR: DOMINIQUE COPPOLA EXP COSIGNER: URGENCY: STATUS: COMPLETED PSYCHIATRY F/U VISIT 02/09/25 15:30 NANETTE CHOI JR LAST 4: December START/END TIMES: The consented to be seen for a face to face routine med review appointment. CC: Anxiety BRIEF HX OF PROBLEM REQUIRING FOLLOW-UP CARE: 50 yo m [facility] care with the [facility]. Last seen in Aug 2024. He has been having anxiety attacks since 1997 when he was in the [employer]. He was on psychotropic medication from his outside provider and was motivated to make medication adjustments and engage in therapy. CURRENT PSYCHIATRIC MEDICATION: Velafaxine 37.5 mg + 75mg(total 112.5mg) qpm for anxiety and mood. He denies s/e and reports good med compliance. Med has been helpful. O/E: Sleep-better with melatonin, gets 6-7 hrs now, but pain is still disruptive. Energy-improved somewhat since last visit. Appetite-god, wt is stable. Focus/ Memory-denies concerns. Anxiety-pt reports that he is managing his anxiety better with the medication, no panic or anxiety attacks. Mood- great . He denies si or hi. He denies feeling hopeless, helpless, worthless or like a burden to others. A/V/H-denies. Delusions-denies. Harshal/Hypomania-denies. OCD-denies. PSYCHIATRIC HISTORY: Pt denies past psych admissions, suicide attempts or s.i.b. Pt denies past use of medication for insomnia or anxiety. His community FP BLOOD BANK CREDIT CLERK Esperanza Spicer, prescribed Venlafaxine for a couple of yrs for anxiety. Pt denies hx of prior psychiatric treatment. MHTC: Amina Luz. Pt reports that he completed therapy with Sera Langston. ROS: PSYCHIATRIC: See notes above NEURO: Head Trauma: concussions from football in high school and in hand to hand training at the [employer]. L.O.C/ Seizures: pt denies. PSH: Appendectomy 1982 Knee arthroscopy 2020 TENS Unit for pain PHM: HLD Depression/anxiety Insomnia T2DM GERD HTN Tinnitus/hearing loss Lower back pain Cervicalgia Pain in shoulders, knees LE edema Peripheral neuropathy LEONIDAS SUBSTANCE USE HISTORY: Tobacco: chews one can a day - smokeless tobacco x 29yrs EtOH: occasional use 1-2 times per year Illicit Drugs: denies use or LEONCIO treatment Caffiene: drinks pop(mountain dew, coke, pepsi), 2-3 cans daily during the work week, 5-6 on Sat and Sun. Pt plans to cut down his intake of soda. SOCIAL HISTORY: Pt lives in his own home with Cheryl, two of his three children and two boxer dogs. 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 He switched from nights to days, still takes his medication in the evening. Finances: 40% sc for tinnitus and physical problems Leisure Recreation: woodworking; hunting; fishing. Stores his guns in a safe. HISTORY: Served in the [employer] for 4 yrs [phone]. 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 Pt was firing guns a lot as part of his job. Not deployed. Honorable discharge. 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 Cooperative, pleasant, good eye contact, nl pma. Slow, labored gait due to pain. SPEECH: nl MOOD: great AFFECT: euthymic PERCEPTUAL DISTURBANCES: No hallucinations THOUGHT [...] acceptance and stress reduction. MEDICAL Followed by Crystal Pacheco NP. CONTACT: The patient was provided with my contact information, and was encouraged to call with any additional questions or concerns. Patient agreed to call 911, Hotline, or go to ER in case of emergencies. FOLLOW-UP: RTC - 4-5 months. Pt to get work note from [facility]. I met with the patient [...] - 25 CREATININE 1.3 1.5 H mg/dL 0.6 - 1.3 SODIUM 139 140 mmol/L 136 - 145 [...] HGB A1C 5.6 % 4.0 - 6.0 !! Indicates COMMENTS AVAILABLE...Refer to Interim Lab Report. CHOL: 114 (07/31/24 13:46) HDL: 31 (07/31/24 13:46) TRI (07/31/24 13:46) calcLDL: 35 (07/31/24 13:46) TSH - 1.9834 (02/02/23 09:34) BODY MASS INDEX 41.3 (DEC 04, 2024@09:09:39) 41.1 (AUG 28, 2024@14:45:54) JUL 31, 2024@13:07:38 Blood Pressure - 129/81 (12/04/2024 09:09) SVS - WEIGHT Measurement DT WEIGHT LB(KG)[BMI] 12/04/2024 09:09 279(126.55)[41*] 08/28/2024 14:45 278(126.10)[41*] 07/31/2024 13:07 290(131.54)[43*] 03/24/2024 11:41 278.4(126.28)[41*] 02/18/2024 10:17 289(131.09)[43*] P-MEDICATION RECONCILIATION: Review of medications with the patient at the time of this encounter included: Patient local and remote allergies, active and pending prescriptions dispensed from this [place] (local) and dispensed from another [place] or [facility] facility (remote) as well as local [...] Indication: FOR DIABETES 10 Total Medications /es/ LATIFAT OSINOWO MD Attending Physician, Psychiatry Signed: 02/09/2025 16:01 DOMINIQUE COPPOLA [facility]
--- OUTSIDE RECORDS SUMMARY | 2025-02-26 11:00 | XMS_ITS | Encounter Summary ---
Author Name [facility] Address [address] [place] [address] Care Team Providers Care Head Of Data Name Role Phone EMMY TYLER Primary Care Provider Unavailabl e Selected Encounter This section includes the information on record at [facility] for the Encounter. Date/Time Encounter Type Encounter Description Reason Provider Source Feb 26, 2025 03:00 PM GEL-ONE PM&RS PHYSICIAN ICD-10-CM M25.569 Pain in unspecified knee SUICOVENKAT Jean Paul Encounter Template Text not used by [facility] Assessments - Encounter Diagnoses This section includes the primary and secondary diagnoses documented for the Encounter. Date/Time Primary/Secondary Diagnosis Diagnosis Name Provider Source Feb 26, 2025 03:18 PM PRIMARY Pain in unspecified knee SUICVENKAT Jenkins [facility] Feb 26, 2025 03:18 PM SECONDARY Pain in left knee SUICOVENKAT [facility] Plan of Treatment: Future Appointments (+ 6 months) and Future Tests (+/- 45 days) The Plan of Treatment section includes future care activities for the patient from all [place] treatmentfacilities. This section includes future appointments and future orders which are active, pending or scheduled. Future Appointments This section includes appointments that were scheduled to occur 6 months from the date of the Encounter, up to a maximum of 20 appointments. The data comes from all [place] treatment facilities. Appointment Date/Time Appointment Type Appointme nt Facility Name Apr 20, 2025 01:30 PM AMBULATORY - SURGERY [facility] Jul 28, 2025 03:00 PM AMBULATORY - MEDICINE [facility] Jul 29, 2025 04:00 PM AMBULATORY - PSYCHIATRY TO [facility] Aug 25, 2025 03:00 PM AMBULATORY - REHAB MEDICIN E [facility] Vital Signs: All taken on the encounter date This section contains inpatient and outpatient Vital Signs collected on the date of the Encounter. Date/Time Temperature Pulse Blood Pressure Respiratory Rate SP02 Pain Height Weight Body Mass Index Source Feb 26, 2025 03:15 PM 95.3 F 88 /min 143/81 mm[Hg] 16 /min 95 % [facility] Feb 26, 2025 03:14 PM 5 [facility] Social History: Smoking Status (Most current) and Tobacco Use (All prior to encounter date) This section includes the most current, and the historical, smoking and tobacco- related health factors from the [facility] facility where the Encounter took place. Current Smoking Status This section includes the most current smoking, or tobacco-related health factor, from the [facility] facility where the Encounter took place. Date/Time Current Smoking Status Comment Facil ity Oct 13, 2024 02:46 PM VA-TOBACCO USE FORMER CIGARETTES [facility] Tobacco Use History This section includes a history of the smoking, or tobacco-related health factors, that were collected on or before the date of the Encounter. The data comes from the [place] facility where the Encounter took place. Date/Time Smoking Status/Tobacco Use Comment F acility Oct 13, 2024 02:46 PM VA-TOBACCO USE ADVICE [facility] Oct 13, 2024 02:46 PM VA-TOBACCO USE CYLINDER DYER NO [facility] Oct 13, 2024 02:46 PM VA-TOBACCO USE EVERY DAY OTHER T YPE [facility] Oct 13, 2024 02:46 PM VA-TOBACCO USE EVERY DAY SMOKELE SS [facility] Oct 13, 2024 02:46 PM VA-TOBACCO USE FORMER CIGARETTES [facility] Oct 13, 2024 02:46 PM VA-TOBACCO USE MED NO [facility] Nov 01, 2023 03:30 PM VA-TOBACCO DOESNT USE WI 30 MIN WAKEUP [facility] Nov 01, 2023 03:30 PM VA-TOBACCO USE > 15 LESS THAN 30 YEARS [facility] Nov 01, 2023 03:30 PM VA-TOBACCO USE ADVICE [facility] Nov 01, 2023 03:30 PM VA-TOBACCO USE CYLINDER DYER YES [facility] Nov 01, 2023 03:30 PM VA-TOBACCO USE MED NOTIFY PROVID ER [facility] Nov 01, 2023 03:30 PM VA-TOBACCO USER EVERY DAY [facility] Oct 20, 2022 10:30 AM VA-TOBACCO DOESNT USE WI 30 MIN WAKEUP [facility] Oct 20, 2022 10:30 AM VA-TOBACCO USE > 15 LESS THAN 30 YEARS [facility] Oct 20, 2022 10:30 AM VA-TOBACCO USE ADVICE [facility] Oct 20, 2022 10:30 AM VA-TOBACCO USE CYLINDER DYER NO [facility] Oct 20, 2022 10:30 AM VA-TOBACCO USE MED NOTIFY PROVID ER [facility] Oct 20, 2022 10:30 AM VA-TOBACCO USER EVERY DAY [facility] Encounter Notes: All associated encounter notes This section contains the clinical notes associated to the Encounter. Date/Time Encounter Note(s) Provider Source Feb 26, 2025 03:13 PM PRIMARY CARE NURSI NG OUTPATIENT NOTE: LOCAL TITLE: CHIEF DESIGN BRANCH NURSING STANDARD TITLE: PRIMARY CARE NURSING OUTPATIENT NOTE DATE OF NOTE: FEB 26, 2025@15:13 ENTRY DATE: FEB 26, 2025@15:13:50 AUTHOR: PAIGE HARRIS EXP COSIGNER: URGENCY: STATUS: COMPLETED S/O: Chief Complaint/Reason for PM&R Appointment: bialtaral knees N-Pain Screen: Are you currently experiencing pain? Yes - DVPRS scale used to assess Location: bilateral knees [employer] Pain Rating Scale (DVPRS): 5 Interrupts some activities Pain Score: 5 Patient's acceptable pain goal: 0 No pain Weight and vital signs obtained this visit. P: To see a provider. /blayne/ PAIGE HARRIS LPN Signed: 02/26/2025 15:14 PAIGE HARRIS [facility] Feb 26, 2025 03:09 PM PHYSICAL MEDICINE REHAB OUTPATIENT NOTE: LOCAL TITLE: PHYSICAL MEDICINE OUTPATIENT FOLLOW-UP STANDARD TITLE: PHYSICAL MEDICINE REHAB OUTPATIENT NOTE DATE OF NOTE: FEB 26, 2025@15:09 ENTRY DATE: FEB 26, 2025@15:09:15 AUTHOR: VENKAT ELLER EXP COSIGNER: URGENCY: STATUS: COMPLETED CHIEF COMPLAINT: Bilateral knee pain HISTORY OF PRESENT ILLNESS: Pt here for repeat Durolane injections of bilateral knees. He was last seen in August 2024 and received bilateral Durolane injections into both of his knees. States he had relief up until almost today. Pain was not completely gone, but the mobility was improved for him. Reports intermittent swelling of bilateral knees. Reports popping, locking, catching. Is using Mobic 7.5 mg as needed. Has Voltaren gel, does get good relief from this. REVIEW OF SYSTEMS: denies any CP or SOB; all other 10 systems reviewed and are negative except as above. ALL: No Remote Allergy/ADR Data available for this patient [facility] Patient has answered NKA MEDICATION: Active Outpatient Medications (including Supplies): Issue Date Status Last Fill Active Outpatient Medications Refills Expiration 1) ERGOCALCIF 1,250MCG (D2-50,000UNIT) CAP Qty: ACTIVE Issue: 08/01/24 9 for 60 days Sig: TAKE 1 CAPSULE BY MOUTH Refills: 3 Last : 08/01/24 ONCE WEEKLY Expr : 08/02/25 Indication: FOR VITAMIN SUPPLEMENT 2) MELATONIN 5MG CAP/TAB Qty: 90 for 45 days ACTIVE Issue: 08/26/24 Sig: TAKE 1-2 CAPSULE/TABLET BY MOUTH AT Refills: 3 Last : 09/04/24 BEDTIME NEEDED Expr : 08/27/25 Indication: FOR SLEEP 3) MELOXICAM 15MG TAB Qty: 90 for 90 days Sig: ACTIVE Issue: 07/31/24 TAKE ONE TABLET BY MOUTH ONCE DAILY Refills: 3 Last : 07/31/24 Indication: FOR PAIN AND INFLAMMATION Expr : 08/01/25 4) METHOCARBAMOL 750MG TAB Qty: 120 for 30 days ACTIVE Issue: 03/24/24 Sig: TAKE ONE TABLET BY MOUTH FOUR TIMES A Refills: 1 Last : 07/31/24 DAY Expr : 03/25/25 Indication: FOR MUSCLE SPASM 5) VENLAFAXINE HCL 37.5MG 24HR SA CAP Qty: 60 ACTIVE Issue: 02/09/25 for 60 days Sig: TAKE ONE CAPSULE BY MOUTH Refills: 2 Last : 02/09/25 ONCE DAILY TO BE TAKEN WITH 75MG CAPSULE Expr : 02/10/26 FOR TOTAL OF 112.5MG EVERY DAY Indication: FOR MENTAL HEALTH 6) VENLAFAXINE HCL 75MG 24HR SA CAP Qty: 60 for ACTIVE Issue: 02/09/25 60 days Sig: TAKE ONE CAPSULE BY MOUTH ONCE Refills: 2 Last : 02/09/25 DAILY TO BE TAKEN WITH 37.5MG CAPSULE FOR A Expr : 02/10/26 TOTAL OF 112.5MG EVERY DAY Indication: FOR [...] WEEK Indication: FOR DIABETES 10 Total Medications PHYSICAL EXAM: HR: 88 (02/26/2025 15:15) BP: 143/81 (02/26/2025 15:15) O2: No data for BLOOD GASES Temp: 95.3 F [35.2 C] (02/26/2025 15:15) Pain: 5 (02/26/2025 15:14) 292.77 lb [132.80 kg] (02/09/2025 15:45) General: NAD. Psyche: Judgement and insight are [...] times DIAGNOSTIC STUDIES: R knee xrays from [facility] on 02/15/2023: spurring along the [...] left knee: Impression: Mild patellofemoral degenerative change. Iwfby-on-vmeolpve knee joint effusion. The patella is high riding, which may present with tracking issues. ASSESSMENT: 1. Bilateral knee pain 2. Bilateral patellofemoral syndrome PROCEDURE: 1. Informed consent completed 2. Patient states name, SSN (or ), procedure to be performed on Pt name:NANETTE CHOI Pt SSN:[id number] Pt :December 3. Pertinent medications, recent steroid treatments, and imaging reviewed, including anticoagulation and antimicrobial therapy, and labs below HgbA1C:HGB A1C: Collection DT Spec HGB A1C 07/31/2024 13:46 BLOOD 5.6 01/24/2024 16:00 BLOOD 5.3 5.6 (07/31/24 13:46) Plts:PLATELET (TOPC): 0 INR: CRP: ESR: 4. [...] used for this procedure. Durolane 30mg/3ml Lot #[id number]; [id number] Bilateral procedure was completed with the same [...] Seen and examined with, procedure performed by Dr.Angelika Janey MD [facility] PM&R Resident PGY 4 DUROLANE REQUEST PLEASE NOTE: There is limited [...] /blayne/ VENKAT ELLER MD Attending Physician, PM&R [facility] Signed: 02/26/2025 15:18 VENKAT ELLER [facility]
--- OUTSIDE RECORDS SUMMARY | 2025-04-14 11:20 | XMS_ITS | Continuity of Care Document ---
Author Name [facility] Organization [facility] Care Team Providers Care Volunteer Recruitment Coordinator Name Role Phone [facility] Unavailable Unavailable Problems Combined list of problems from Department of Defense and Veterans Affairs facilities. It does not include entries that were removed or entered in error. Problem Status Onset Date Problem Type Date of Resolution Comments Source Anxiety ([facility] [id number]) Active Condition [facility] Cervicalgia Active Condition [facility] Depression ([facility] [id number]) Active Condition [facility] Diabetes Mellitus Type 2 ([facility] [id number]) Active Condition [facility] Exposure to potentially hazardous substance Active Condition [facility] GERD - Gastro-Esophageal Reflux Disease ([facility] [id number]) Active Condition [facility] HTN - Hypertension ([facility] [id number]) Active Condition [facility] Hyperlipidemia ([facility] [id number]) Active Condition [facility] Low back pain Active Condition [facility] Obstructive sleep apnea syndrome Active Condition [facility] Pain of bilateral knee joints Active Condition [facility] Pain of left shoulder region Active Condition [facility] Peripheral neuropathic pain Active [facility] Radiculopathy Active Condition [facility] Tinnitus Active Condition [facility] Diagnosis: ICD-10-CM M25.569 Pain in unspecified knee Active Diagnosis [facility] Diagnosis: ICD-10-CM F32.A Depression, unspecified Active Diagnosis [facility] Diagnosis: ICD-10-CM F41.9 Anxiety disorder, unspecified Active Diagnosis [facility] Diagnosis: ICD-10-CM M54.50 Low back pain, unspecified Active Diagnosis [facility] Diagnosis: ICD-10-CM R68.89 Other general symptoms and signs Active Diagnosis [facility] Diagnosis: ICD-10-CM F33.9 Major depressive disorder, recurrent, unspecified Active Diagnosis [facility] Medications Combined list of outpatient medications from Department of Defense and Veterans Affairs facilities.Medications provided include 1) outpatient medications from the last 15 months, and 2) patient-reported medications. Medication Details Route Status Patient Instructions Prescription Expires Prescription Number Last Dispense Date Ordering Provider Order Date Order Qty Source ATORVASTATI N CA 20MG TAB TAKE ONE-HALF TABLET BY MOUTH ONCE DAILY ORAL ACTIVE AMADOR SIMON Nancy 2023 [facility] DICLOFENAC NA 1% GEL,TOP APPLY 4 GRAMS TO SKIN TWICE A DAY NEEDED FOR PAIN AND INFLAMMA TION TO AFFECTED JOINT(S) DIRECTED FOR PAIN (USE ENCLOSED DOSING CARD TO ACCURATE LY MEASURE EACH DOSE) TOPICA L 08/30/2024 [id number] NIOK TYLER LY E DIRECTOR OF CLINICAL APPLICATIONS 2023 100 [facility] ERGOCALCIFE ROL 1,250MCG (50,000UNIT ) CAP TAKE 1 CAPSULE BY MOUTH ONCE WEEKLY FOR VITAMIN SUPPLEME NT ORAL ACTIVE 08/02/2025 [id number] 4 NIKO TYLER E DIRECTOR OF CLINICAL APPLICATIONS 2023 9 [facility] IRBESARTAN 75MG TAB TAKE ONE TABLET BY MOUTH ONCE DAILY ORAL ACTIVE SHIRLEY SINCLAIR 2022 [facility] MELATONIN 5MG CAP/TAB TAKE 1-2 CAPSULE/ TABLET BY MOUTH AT BEDTIME NEEDED FOR SLEEP ORAL ACTIVE 08/27/2025 [id number] 5 EMERITA DISLA 2024 90 [facility] MELATONIN 5MG CAP/TAB TAKE 1-2 CAPSULE/ TABLET BY MOUTH AT BEDTIME NEEDED FOR SLEEP ORAL DISCONT INUED 06/06/2025 [id number] EMERITA DISLA A 2023 90 [facility] MELOXICAM 15MG TAB TAKE ONE TABLET BY MOUTH ONCE DAILY FOR PAIN AND INFLAMMA TION ORAL ACTIVE 08/01/2025 [id number] 4 NIKO TYLER LY E DIRECTOR OF CLINICAL APPLICATIONS 2023 90 [facility] METHOCARBAM OL 750MG TAB TAKE ONE TABLET BY MOUTH FOUR TIMES A DAY FOR MUSCLE SPASM ORAL 03/25/2025 [id number] 4 SRIKANTH MARTINEZ 2023 120 [facility] OMEPRAZOLE 20MG CAP,EC TAKE 1 CAPSULE BY MOUTH EVERY EVENING ORAL ACTIVE SHIRLEY SINCLAIR J 2022 [facility] PREDNISONE 20MG TAB TAKE TWO TABLETS BY MOUTH EVERY MORNING TO LOWER INFLAMMA TION WITH FOOD ORAL 01/03/2025 [id number] NIKO TYLER DIRECTOR OF CLINICAL APPLICATIONS 2024 10 [facility] PREDNISONE 50MG TAB TAKE ONE TABLET BY MOUTH EVERY MORNING TO LOWER INFLAMMA TION WITH FOOD ORAL 04/23/2024 [id number] 4 SRIKANTH MARTINEZ R 2023 5 [facility] SEMAGLUTIDE 0.25MG/0.37 5ML INJ,SOLN,PE N,3ML INJECT 0.25MG UNDER THE SKIN ONCE EVERY WEEK SUBCUT ANEOUS ACTIVE SHIRLEY SINCLAIR J 2022 [facility] VENLAFAXINE HCL 100MG TAB TAKE ONE TABLET BY MOUTH ONCE DAILY FOR MENTAL HEALTH NOTE DOSE INCREASE ORAL DISCONT INUED BY PROVIDE R 04/10/2025 [id number] 4 OSINOWO,L ATIFAT 2023 30 [facility] VENLAFAXINE HCL 37.5MG 24HR CAP,SA TAKE ONE CAPSULE BY MOUTH ONCE DAILY FOR MENTAL HEALTH TO BE TAKEN WITH 75MG CAPSULE FOR TOTAL OF 112.5MG EVERY DAY ORAL ACTIVE 02/10/2026 [id number] 5 OSINOWO,L ATIFAT 2024 60 [facility] VENLAFAXINE HCL 37.5MG 24HR CAP,SA TAKE ONE CAPSULE BY MOUTH ONCE DAILY FOR MENTAL HEALTH TO BE TAKEN WITH 75MG CAPSULE FOR TOTAL OF 112.5MG EVERY DAY ORAL DISCONT INUED 09/13/2025 [id number] 5 OSINOWO,L ATIFAT 2024 60 [facility] VENLAFAXINE HCL 37.5MG 24HR CAP,SA TAKE ONE CAPSULE BY MOUTH ONCE DAILY FOR MENTAL HEALTH TO BE TAKEN WITH 75MG CAPSULE FOR TOTAL OF 112.5MG EVERY DAY ORAL DISCONT INUED 08/27/2025 [id number] EMERITA DISLA 2024 60 [facility] VENLAFAXINE HCL 37.5MG 24HR CAP,SA TAKE ONE CAPSULE BY MOUTH ONCE DAILY FOR MENTAL HEALTH TO BE TAKEN WITH 75MG CAPSULE FOR TOTAL OF 112.5MG EVERY DAY ORAL DISCONT INUED (EDIT) 06/06/2025 [id number] EMERITA DISLA 2023 30 [facility] VENLAFAXINE HCL 75MG 24HR CAP,SA TAKE ONE CAPSULE BY MOUTH ONCE DAILY FOR MENTAL HEALTH TO BE TAKEN WITH 37.5MG CAPSULE FOR A TOTAL OF 112.5MG EVERY DAY ORAL ACTIVE 02/10/2026 [id number] 5 OSINOWO,L ATIFAT 2024 60 [facility] VENLAFAXINE HCL 75MG 24HR CAP,SA TAKE ONE CAPSULE BY MOUTH ONCE DAILY FOR MENTAL HEALTH TO BE TAKEN WITH 37.5MG CAPSULE FOR A TOTAL OF 112.5MG EVERY DAY ORAL DISCONT INUED 09/13/2025 [id number] 5 OSINOWO,L ATIFAT 2024 60 [facility] VENLAFAXINE HCL 75MG 24HR CAP,SA TAKE ONE CAPSULE BY MOUTH ONCE DAILY FOR MENTAL HEALTH TO BE TAKEN WITH 37.5MG CAPSULE FOR A TOTAL OF 112.5MG EVERY DAY ORAL DISCONT INUED 08/27/2025 [id number] 5 EMERITA DISLA 2024 60 [facility] VENLAFAXINE HCL 75MG 24HR CAP,SA TAKE ONE CAPSULE BY MOUTH ONCE DAILY FOR MENTAL HEALTH TO BE TAKEN WITH 37.5MG CAPSULE FOR A TOTAL OF 112.5MG EVERY DAY ORAL DISCONT INUED (EDIT) 06/06/2025 [id number] 4 EMERITA DISLA 2023 30 [facility] Allergies, Adverse Reactions, Alerts Combined list of allergies from Department of Defense and Veterans Affairs facilities. It does not include entries that were removed or entered in error. Substance Category Reaction Severity Reaction type Status Date Reported Comments Source No Known Allergies Drug allergy (disorder) active 8 [facility] Immunizations Combined list of available immunizations from the Department of Defense and Veterans Affairs facilities. Immunization Series Date Given Administered By Site Reaction Lot Number CVX Code Drug Deburring Technician Status Comments Source INFLUENZA, MDCK, QUADRIVALENT, PF 2 2021 171 complet ed HISTORICA L INFORMATI ON - FROM OTHER REGISTRY, [facility] COVID-19 (PFIZER), MRNA, LNP-S, PF, 30 MCG/0.3 ML DOSE 2 2020 208 complet ed HISTORICA L INFORMATI ON - FROM PATIENT'S WRITTEN RECORD, [facility] COVID-19 (PFIZER), MRNA, LNP-S, PF, 30 MCG/0.3 ML DOSE 1 2020 208 complet ed HISTORICA L INFORMATI ON - FROM PATIENT'S WRITTEN RECORD, [facility] INFLUENZA, MDCK, QUADRIVALENT, PF 1 2019 171 complet ed HISTORICA L INFORMATI ON - FROM OTHER REGISTRY, [facility] Results Combined list of recent chemistry, hematology and other laboratory results from Department of Defense and Veterans Affairs, ranging from 15 months to all on record, depending upon the facility. Order Name Results Value Reference Range Date Interpretation Specimen Comments Source MICROALBU MIN URINE PANEL,RAN DOM CREATININE [MASS/VOLU ME] IN URINE 184 mg/dL 07/31 Specimen Type: URINE,TANNER Cramer No comment entered. Ordering Provider: EMMY TYLER DIRECTOR OF CLINICAL APPLICATIONS Report Released Date/Time: Jul 31, 2024 01:32 PM Reporting Lab: [place] [phone] Performing Lab: [address] MICROALBU MIN URINE PANEL,RAN DOM MICROALBUM IN [MASS/VOLU ME] IN URINE 1.6 mg/dL 07/31 Specimen Type: URINETANNER No comment entered. Ordering Provider: EMMY TYLER DIRECTOR OF CLINICAL APPLICATIONS Report Released Date/Time: Jul 31, 2024 01:32 PM Reporting Lab: [place] [phone] Performing Lab: [address] MICROALBU MIN URINE PANEL,RAN DOM MICROALBUM IN/CREATIN INE [MASS RATIO] IN URINE 8.7 mg/g 07/31 Specimen Type: URINE,RANDO M No comment entered. Ordering Provider: EMMY TYLER DIRECTOR OF CLINICAL APPLICATIONS Report Released Date/Time: Jul 31, 2024 01:32 PM Reporting Lab: [address] [address] Performing Lab: [address] [address] [facility] URINALYSI S COLOR OF URINE YELLOW 07/31 Specimen Type: URINE,RANDO M No comment entered. Ordering Provider: EMMY TYLER DIRECTOR OF CLINICAL APPLICATIONS Report Released Date/Time: Jul 31, 2024 01:32 PM Reporting Lab: [facility] [address] [facility] [address] Performing Lab: [facility] [address] [facility] [address] [facility] URINALYSI S SPECIFIC GRAVITY OF URINE 1.023 1.003 - 1.035 07/31 Specimen Type: URINE,RANDO M No comment entered. Ordering Provider: EMMY TYLER DIRECTOR OF CLINICAL APPLICATIONS Report Released Date/Time: Jul 31, 2024 01:32 PM Reporting Lab: [facility] [address] [facility] [address] Performing Lab: [facility] [address] [facility] [address] [facility] URINALYSI S UROBILINOG EN [UNITS/VOL UME] IN URINE BY TEST STRIP 1.0 {Billy 'U}/dL 0.2 - 2.0 07/31 Specimen Type: URINE,RANDO M No comment entered. Ordering Provider: EMMY TYLER DIRECTOR OF CLINICAL APPLICATIONS Report Released Date/Time: Jul 31, 2024 01:32 PM Reporting Lab: [facility] [address] [facility] [address] Performing Lab: [facility] [address] [facility] [address] [facility] URINALYSI S BILIRUBIN. TOTAL [PRESENCE] IN URINE BY TEST STRIP NEGATIVE 07/31 Specimen Type: URINE,RANDO M No comment entered. Ordering Provider: EMMY TYLER DIRECTOR OF CLINICAL APPLICATIONS Report Released Date/Time: Jul 31, 2024 01:32 PM Reporting Lab: [facility] [address] [place] [address] Performing Lab: [facility] [address] [place] [address] [facility] URINALYSI S KETONES [PRESENCE] IN URINE NEGATIVE 07/31 Specimen Type: URINE,RANDO M No comment entered. Ordering Provider: EMMY TYLER DIRECTOR OF CLINICAL APPLICATIONS Report Released Date/Time: Jul 31, 2024 01:32 PM Reporting Lab: [facility] [address] [place] [address] Performing Lab: [facility] [address] [place] [address] [facility] URINALYSI S GLUCOSE [MASS/VOLU ME] IN URINE BY TEST STRIP NEGATIVE 07/31 Specimen Type: URINE,RANDO M No comment entered. Ordering Provider: EMMY TYLER DIRECTOR OF CLINICAL APPLICATIONS Report Released Date/Time: Jul 31, 2024 01:32 PM Reporting Lab: [facility] [address] [place] [address] Performing Lab: [facility] [address] [place] [address] [facility] URINALYSI S PROTEIN [PRESENCE] IN URINE BY TEST STRIP 2+ 07/31 Specimen Type: URINE,RANDO M No comment entered. Ordering Provider: EMMY TYLER DIRECTOR OF CLINICAL APPLICATIONS Report Released Date/Time: Jul 31, 2024 01:32 PM Reporting Lab: [facility] [address] [place] [address] Performing Lab: [facility] [address] [place] [address] [facility] URINALYSI S PH OF URINE BY TEST STRIP 5.5 5.0 - 9.0 07/31 Specimen Type: URINE,RANDO M No comment entered. Ordering Provider: EMMY TYLER DIRECTOR OF CLINICAL APPLICATIONS Report Released Date/Time: Jul 31, 2024 01:32 PM Reporting Lab: [facility] [address] [place] [address] Performing Lab: [facility] [address] [place] [address] [facility] URINALYSI S HEMOGLOBIN [PRESENCE] IN URINE BY TEST STRIP NEGATIVE 07/31 Specimen Type: URINE,RANDO M No comment entered. Ordering Provider: EMMY TYLER DIRECTOR OF CLINICAL APPLICATIONS Report Released Date/Time: Jul 31, 2024 01:32 PM Reporting Lab: [facility] [address] [place] [address] Performing Lab: [facility] [address] [place] [address] [facility] URINALYSI S NITRITE [PRESENCE] IN URINE BY TEST STRIP NEGATIVE 07/31 Specimen Type: URINE,RANDO M No comment entered. Ordering Provider: EMMY TYLER DIRECTOR OF CLINICAL APPLICATIONS Report Released Date/Time: Jul 31, 2024 01:32 PM Reporting Lab: [facility] [address] [place] [address] Performing Lab: [facility] [address] [place] [address] [facility] URINALYSI S LEUKOCYTE ESTERASE [PRESENCE] IN URINE BY TEST STRIP NEGATIVE 07/31 Specimen Type: URINE,RANDO M No comment entered. Ordering Provider: EMMY TYLER DIRECTOR OF CLINICAL APPLICATIONS Report Released Date/Time: Jul 31, 2024 01:32 PM Reporting Lab: [facility] [address] [place] [address] Performing Lab: [facility] [address] [place] [address] [facility] URINALYSI S CLARITY OF URINE CLEAR 07/31 Specimen Type: URINE,RANDO M No comment entered. Ordering Provider: EMMY TYLER DIRECTOR OF CLINICAL APPLICATIONS Report Released Date/Time: Jul 31, 2024 01:32 PM Reporting Lab: [facility] [address] [place] [address] Performing Lab: [facility] [address] [place] [address] [facility] URINALYSI S ERYTHROCYT ES [#/AREA] IN URINE SEDIMENT BY MICROSCOPY HIGH POWER FIELD 0-2/[HPF ] 0 - 2 07/31 Specimen Type: URINE,RANDO M No comment entered. Ordering Provider: EMMY TYLER DIRECTOR OF CLINICAL APPLICATIONS Report Released Date/Time: Jul 31, 2024 01:32 PM Reporting Lab: [facility] [address] [facility] [address] Performing Lab: [facility] [address] [facility] [address] [facility] URINALYSI S LEUKOCYTES [#/AREA] IN URINE SEDIMENT BY MICROSCOPY HIGH POWER FIELD 0-5/[HPF ] 0 - 5 07/31 Specimen Type: URINE,RANDO M No comment entered. Ordering Provider: EMMY TYLER DIRECTOR OF CLINICAL APPLICATIONS Report Released Date/Time: Jul 31, 2024 01:32 PM Reporting Lab: [facility] [address] [facility] [address] Performing Lab: [facility] [address] [facility] [address] [facility] URINALYSI S BACTERIA [#/AREA] IN URINE SEDIMENT BY AUTOMATED COUNT None Seen/[HP F] 07/31 Specimen Type: URINE,RANDO M No comment entered. Ordering Provider: EMMY TYLER DIRECTOR OF CLINICAL APPLICATIONS Report Released Date/Time: Jul 31, 2024 01:32 PM Reporting Lab: [facility] [address] [facility] [address] Performing Lab: [facility] [address] [facility] [address] [facility] URINALYSI S EPITHELIAL CELLS.RHONDA L [#/AREA] IN URINE SEDIMENT BY MICROSCOPY HIGH POWER FIELD Present 07/31 Specimen Type: URINE,RANDO M No comment entered. Ordering Provider: EMMY TYLER DIRECTOR OF CLINICAL APPLICATIONS Report Released Date/Time: Jul 31, 2024 01:32 PM Reporting Lab: [facility] [address] [facility] [address] Performing Lab: [facility] [address] [facility] [address] [facility] URINALYSI S MUCUS [PRESENCE] IN URINE SEDIMENT BY LIGHT MICROSCOPY Present 07/31 Specimen Type: URINE,RANDO M No comment entered. Ordering Provider: EMMY TYLER DIRECTOR OF CLINICAL APPLICATIONS Report Released Date/Time: Jul 31, 2024 01:32 PM Reporting Lab: [facility] [address] [place] [address] Performing Lab: [facility] [address] [place] [address] [facility] URINALYSI S SPERMATOZO A [PRESENCE] IN URINE SEDIMENT BY LIGHT MICROSCOPY PRESENT 07/31 Specimen Type: URINE,RANDO M No comment entered. Ordering Provider: EMMY TYLER DIRECTOR OF CLINICAL APPLICATIONS Report Released Date/Time: Jul 31, 2024 01:32 PM Reporting Lab: [facility] [address] [place] [address] Performing Lab: [facility] [address] [place] [address] [facility] URINALYSI S TOTAL CASTS 0-2/[LPF ] 0 - 5 07/31 Specimen Type: URINE,RANDO M No comment entered. Ordering Provider: EMMY TYLER DIRECTOR OF CLINICAL APPLICATIONS Report Released Date/Time: Jul 31, 2024 01:32 PM Reporting Lab: [facility] [address] [place] [address] Performing Lab: [facility] [address] [place] [address] [facility] URINALYSI S TOTAL EPITHELIAL CELLS None Seen/[LP F] 07/31 Specimen Type: URINE,RANDO M No comment entered. Ordering Provider: EMMY TYLER DIRECTOR OF CLINICAL APPLICATIONS Report Released Date/Time: Jul 31, 2024 01:32 PM Reporting Lab: [facility] [address] [place] [address] Performing Lab: [facility] [address] [place] [address] [facility] LIPID PROFILE CHOLESTERO L [MASS/VOLU ME] IN SERUM OR PLASMA 114 mg/dL <200 - 200 07/31 Specimen Type: BLOOD No comment entered. Ordering Provider: EMMY TYLER DIRECTOR OF CLINICAL APPLICATIONS Report Released Date/Time: Jul 31, 2024 01:32 PM Reporting Lab: [facility] [address] [place] [address] Performing Lab: [facility] [address] [place] [address] [facility] LIPID PROFILE TRIGLYCERI DE [MASS/VOLU ME] IN SERUM OR PLASMA 238 mg/dL 07/31 Specimen Type: BLOOD No comment entered. Ordering Provider: EMMY TYLER DIRECTOR OF CLINICAL APPLICATIONS Report Released Date/Time: Jul 31, 2024 01:32 PM Reporting Lab: [facility] [address] [place] [address] Performing Lab: [facility] [address] [place] [address] [facility] LIPID PROFILE CHOLESTERO L IN HDL [MASS/VOLU ME] IN SERUM OR PLASMA 31 mg/dL 07/31 Specimen Type: BLOOD No comment entered. Ordering Provider: EMMY TYLER DIRECTOR OF CLINICAL APPLICATIONS Report Released Date/Time: Jul 31, 2024 01:32 PM Reporting Lab: [facility] [address] [place] [address] Performing Lab: [facility] [address] [place] [address] [facility] LIPID PROFILE CHOLESTERO L IN LDL [MASS/VOLU ME] IN SERUM OR PLASMA BY CALCULATIO N 35 mg/dL <130 - 130 07/31 Specimen Type: BLOOD No comment entered. Ordering Provider: EMMY TYLER DIRECTOR OF CLINICAL APPLICATIONS Report Released Date/Time: Jul 31, 2024 01:32 PM Reporting Lab: [facility] [address] [place] [address] Performing Lab: [facility] [address] [place] [address] [facility] COMPREHEN SIVE METABOLIC PANEL CREATININE [MASS/VOLU ME] IN SERUM OR PLASMA 1.3 mg/dL 0.6 - 1.3 07/31 Specimen Type: BLOOD No comment entered. Ordering Provider: EMMY TYLER DIRECTOR OF CLINICAL APPLICATIONS Report Released Date/Time: Jul 31, 2024 01:32 PM Reporting Lab: [facility] [address] [place] [address] Performing Lab: [facility] [address] [place] [address] [facility] COMPREHEN SIVE METABOLIC PANEL UREA NITROGEN [MASS/VOLU ME] IN SERUM OR PLASMA 17 mg/dL 7 - 25 07/31 Specimen Type: BLOOD No comment entered. Ordering Provider: EMMY TYLER DIRECTOR OF CLINICAL APPLICATIONS Report Released Date/Time: Jul 31, 2024 01:32 PM Reporting Lab: [facility] [address] [place] [address] Performing Lab: [facility] [address] [place] [address] [facility] COMPREHEN SIVE METABOLIC PANEL GLUCOSE [MASS/VOLU ME] IN SERUM OR PLASMA 136 mg/dL 74 - 109 07/31 H Specimen Type: BLOOD No comment entered. Ordering Provider: EMMY TYLER DIRECTOR OF CLINICAL APPLICATIONS Report Released Date/Time: Jul 31, 2024 01:32 PM Reporting Lab: [facility] [address] [place] [address] Performing Lab: [facility] [address] [place] [address] [facility] COMPREHEN SIVE METABOLIC PANEL SODIUM [MOLES/VOL UME] IN SERUM OR PLASMA 139 mmol/L 136 - 145 07/31 Specimen Type: BLOOD No comment entered. Ordering Provider: EMMY TYLER DIRECTOR OF CLINICAL APPLICATIONS Report Released Date/Time: Jul 31, 2024 01:32 PM Reporting Lab: [facility] [address] [place] [address] Performing Lab: [facility] [address] [place] [address] [facility] COMPREHEN SIVE METABOLIC PANEL POTASSIUM [MOLES/VOL UME] IN SERUM OR PLASMA 4.0 mmol/L 3.5 - 5.1 07/31 Specimen Type: BLOOD No comment entered. Ordering Provider: EMMY TYLER DIRECTOR OF CLINICAL APPLICATIONS Report Released Date/Time: Jul 31, 2024 01:32 PM Reporting Lab: [facility] [address] [place] [address] Performing Lab: [facility] [address] [place] [address] [facility] COMPREHEN SIVE METABOLIC PANEL CHLORIDE [MOLES/VOL UME] IN SERUM OR PLASMA 105 mmol/L 98 - 107 07/31 Specimen Type: BLOOD No comment entered. Ordering Provider: EMMY TYLER DIRECTOR OF CLINICAL APPLICATIONS Report Released Date/Time: Jul 31, 2024 01:32 PM Reporting Lab: [facility] [address] [place] [address] Performing Lab: [facility] [address] [place] [address] [facility] COMPREHEN SIVE METABOLIC PANEL CARBON DIOXIDE, TOTAL [MOLES/VOL UME] IN SERUM OR PLASMA 28 mmol/L 21 - 31 07/31 Specimen Type: BLOOD No comment entered. Ordering Provider: EMMY TYLER DIRECTOR OF CLINICAL APPLICATIONS Report Released Date/Time: Jul 31, 2024 01:32 PM Reporting Lab: [facility] [address] [place] [address] Performing Lab: [facility] [address] [place] [address] [facility] COMPREHEN SIVE METABOLIC PANEL CALCIUM [MASS/VOLU ME] IN SERUM OR PLASMA 9.2 mg/dL 8.6 - 10.3 07/31 Specimen Type: BLOOD No comment entered. Ordering Provider: EMMY TYLER DIRECTOR OF CLINICAL APPLICATIONS Report Released Date/Time: Jul 31, 2024 01:32 PM Reporting Lab: [facility] [address] [place] [address] Performing Lab: [facility] [address] [place] [address] [facility] COMPREHEN SIVE METABOLIC PANEL PROTEIN [MASS/VOLU ME] IN SERUM OR PLASMA 6.9 g/dL 6.4 - 8.9 07/31 Specimen Type: BLOOD No comment entered. Ordering Provider: EMMY TYLER DIRECTOR OF CLINICAL APPLICATIONS Report Released Date/Time: Jul 31, 2024 01:32 PM Reporting Lab: [facility] [address] [place] [address] Performing Lab: [facility] [address] [place] [address] [facility] COMPREHEN SIVE METABOLIC PANEL ALBUMIN [MASS/VOLU ME] IN SERUM OR PLASMA 4.5 g/dL 3.5 - 5.7 07/31 Specimen Type: BLOOD No comment entered. Ordering Provider: EMMY TYLER DIRECTOR OF CLINICAL APPLICATIONS Report Released Date/Time: Jul 31, 2024 01:32 PM Reporting Lab: [facility] [address] [place] [address] Performing Lab: [facility] [address] [place] [address] [facility] COMPREHEN SIVE METABOLIC PANEL BILIRUBIN. TOTAL [MASS/VOLU ME] IN SERUM OR PLASMA 0.5 mg/dL 0.3 - 1.0 07/31 Specimen Type: BLOOD No comment entered. Ordering Provider: EMMY TYLER DIRECTOR OF CLINICAL APPLICATIONS Report Released Date/Time: Jul 31, 2024 01:32 PM Reporting Lab: [facility] [address] [place] [address] Performing Lab: [facility] [address] [place] [address] [facility] COMPREHEN SIVE METABOLIC PANEL ALKALINE PHOSPHATAS E [ENZYMATIC ACTIVITY/V OLUME] IN SERUM OR PLASMA 64 U/L 34 - 104 07/31 Specimen Type: BLOOD No comment entered. Ordering Provider: EMMY TYLER DIRECTOR OF CLINICAL APPLICATIONS Report Released Date/Time: Jul 31, 2024 01:32 PM Reporting Lab: [facility] [address] [place] [address] Performing Lab: [facility] [address] [place] [address] [facility] COMPREHEN SIVE METABOLIC PANEL ASPARTATE AMINOTRANS FERASE [ENZYMATIC ACTIVITY/V OLUME] IN SERUM OR PLASMA 28 U/L 13 - 39 07/31 Specimen Type: BLOOD No comment entered. Ordering Provider: EMMY TYLER DIRECTOR OF CLINICAL APPLICATIONS Report Released Date/Time: Jul 31, 2024 01:32 PM Reporting Lab: [facility] [address] [place] [address] Performing Lab: [facility] [address] [place] [address] [facility] COMPREHEN SIVE METABOLIC PANEL ALANINE AMINOTRANS FERASE [ENZYMATIC ACTIVITY/V OLUME] IN SERUM OR PLASMA 51 U/L 7 - 52 07/31 Specimen Type: BLOOD No comment entered. Ordering Provider: EMMY TYLER DIRECTOR OF CLINICAL APPLICATIONS Report Released Date/Time: Jul 31, 2024 01:32 PM Reporting Lab: [address] [facility] [address] Performing Lab: [address] [facility] [address] [facility] COMPREHEN SIVE METABOLIC PANEL GLOMERULAR FILTRATION RATE/1.73 SQ M.PREDICTE D [VOLUME RATE/AREA] IN SERUM, PLASMA OR BLOOD BY CREATININE AND CYSTATIN C-BASED FORMULA (CKD-EPI 2020) 67 mL/min/{ 1.73_m2} 07/31 Specimen Type: BLOOD No comment entered. Ordering Provider: EMMY TYLER DIRECTOR OF CLINICAL APPLICATIONS Report Released Date/Time: Jul 31, 2024 01:32 PM Reporting Lab: [address] [facility] [address] Performing Lab: [address] [facility] [address] [facility] HGB A1C (with eAG) HEMOGLOBIN A1C/HEMOGL OBIN.TOTAL IN BLOOD BY HPLC 5.6 4.0 - 6.0 07/31 Specimen Type: BLOOD Comment: ~HGB A1C - Reference Range prior to 97: 3-6.1% Ordering Provider: EMMY TYLER DIRECTOR OF CLINICAL APPLICATIONS Report Released Date/Time: Jul 31, 2024 01:32 PM Reporting Lab: [address] [facility] [address] Performing Lab: [address] [facility] [address] [facility] HGB A1C (with eAG) GLUCOSE MEAN VALUE [MASS/VOLU ME] IN BLOOD ESTIMATED FROM GLYCATED HEMOGLOBIN 114 mg/dL 07/31 Specimen Type: BLOOD Comment: ~HGB A1C - Reference Range prior to 97: 3-6.1% Ordering Provider: EMMY TYLER DIRECTOR OF CLINICAL APPLICATIONS Report Released Date/Time: Jul 31, 2024 01:32 PM Reporting Lab: [address] [address] Performing Lab: [address] [address] [facility] TOTAL 25-HYDROX Y VITAMIN D 25-HYDROXY VITAMIN D3 [MASS/VOLU ME] IN SERUM OR PLASMA 12.0 ng/mL 30 - 100 07/31 L Specimen Type: BLOOD No comment entered. Ordering Provider: EMMY TYLER DIRECTOR OF CLINICAL APPLICATIONS Report Released Date/Time: Jul 31, 2024 01:32 PM Reporting Lab: [address] Performing Lab: [address] CBC W/O DIFF. LEUKOCYTES [#/VOLUME] IN BLOOD BY AUTOMATED COUNT 8.88 10*3/uL 4.00 - 11.00 01/23 Specimen Type: BLOOD No comment entered. Ordering Provider: EMMY TYLER Report Released Date/Time: Jan 24, 2024 03:32 PM Reporting Lab: [address] [address] Performing Lab: [address] [address] [facility] CBC W/O DIFF. ERYTHROCYT ES [#/VOLUME] IN BLOOD 5.59 4.10 - 5.80 01/23 Specimen Type: BLOOD No comment entered. Ordering Provider: EMMY TYLER Report Released Date/Time: Jan 24, 2024 03:32 PM Reporting Lab: [address] [address] Performing Lab: [address] [address] [facility] CBC W/O DIFF. HEMOGLOBIN [MASS/VOLU ME] IN BLOOD 16.7 g/dL 12.1 - 17.2 01/23 Specimen Type: BLOOD No comment entered. Ordering Provider: EMMY TYLER Report Released Date/Time: Jan 24, 2024 03:32 PM Reporting Lab: [address] [facility] [address] Performing Lab: [facility] [address] [facility] [address] [facility] CBC W/O DIFF. HEMATOCRIT [VOLUME FRACTION] OF BLOOD BY AUTOMATED COUNT 51.1 38.0 - 51.0 01/23 H Specimen Type: BLOOD No comment entered. Ordering Provider: EMMY TYLER Report Released Date/Time: Jan 24, 2024 03:32 PM Reporting Lab: [place] [address] [facility] [address] Performing Lab: [address] [facility] [address] [facility] CBC W/O DIFF. MCV [ENTITIC VOLUME] BY AUTOMATED COUNT 91.4 fL 80.0 - 100.0 01/23 Specimen Type: BLOOD No comment entered. Ordering Provider: EMMY TYLER Report Released Date/Time: Jan 24, 2024 03:32 PM Reporting Lab: [address] [facility] [address] Performing Lab: [address] [facility] [address] [facility] CBC W/O DIFF. MCH [ENTITIC MASS] BY AUTOMATED COUNT 29.9 pg 26.0 - 32.0 01/23 Specimen Type: BLOOD No comment entered. Ordering Provider: EMMY TYLER Report Released Date/Time: Jan 24, 2024 03:32 PM Reporting Lab: [address] [facility] [address] Performing Lab: [address] [facility] [address] [facility] CBC W/O DIFF. MCHC [MASS/VOLU ME] BY AUTOMATED COUNT 32.7 g/dL 32.0 - 37.5 01/23 Specimen Type: BLOOD No comment entered. Ordering Provider: EMMY TYLER Report Released Date/Time: Jan 24, 2024 03:32 PM Reporting Lab: [place] [address] [facility] [address] Performing Lab: [place] [address] [facility] [address] [facility] [address] [facility] CBC W/O DIFF. PLATELETS [#/VOLUME] IN BLOOD BY AUTOMATED COUNT 195 10*3/uL 130 - 400 01/23 Specimen Type: BLOOD No comment entered. Ordering Provider: EMMY TYLER Report Released Date/Time: Jan 24, 2024 03:32 PM Reporting Lab: [place] [address] [facility] [place] [address] Performing Lab: [address] [facility] [address] [facility] CBC W/O DIFF. PLATELET MEAN VOLUME [ENTITIC VOLUME] IN BLOOD BY AUTOMATED COUNT 10.2 fL 8.9 - 12.7 01/23 Specimen Type: BLOOD No comment entered. Ordering Provider: EMMY TYLER Report Released Date/Time: Jan 24, 2024 03:32 PM Reporting Lab: [address] [address] Performing Lab: [address] [facility] [address] [facility] CBC W/O DIFF. ERYTHROCYT E DISTRIBUTI ON WIDTH [RATIO] 13.3 11.5 - 14.5 01/23 Specimen Type: BLOOD No comment entered. Ordering Provider: EMMY TYLER Report Released Date/Time: Jan 24, 2024 03:32 PM Reporting Lab: [address] [address] Performing Lab: [address] [address] [facility] PSA PROSTATE SPECIFIC AG [MASS/VOLU ME] IN SERUM OR PLASMA 0.457 ng/mL <4.000 - 4.000 01/23 Specimen Type: BLOOD No comment entered. Ordering Provider: EMMY TYLER Report Released Date/Time: Jan 24, 2024 03:32 PM Reporting Lab: [address] [address] Performing Lab: [address] [address] [facility] URINALYSI S COLOR OF URINE DARK YELLOW 01/23 Specimen Type: URINE,JOHNO M Comment: MICROSCOPIC EXAM NOT INDICATED Ordering Provider: EMMY TYLER Report Released Date/Time: Jan 24, 2024 03:32 PM Reporting Lab: [facility] [address] [place] [address] Performing Lab: [facility] [address] [place] [address] [facility] URINALYSI S SPECIFIC GRAVITY OF URINE 1.023 1.003 - 1.035 01/23 Specimen Type: URINE,JOHNO M Comment: MICROSCOPIC EXAM NOT INDICATED Ordering Provider: EMMY TYLER Report Released Date/Time: Jan 24, 2024 03:32 PM Reporting Lab: [facility] [address] [place] [address] Performing Lab: [facility] [address] [place] [address] [facility] URINALYSI S UROBILINOG EN [UNITS/VOL UME] IN URINE BY TEST STRIP 1.0 {Billy 'U}/dL 0.2 - 2.0 01/23 Specimen Type: URINE,JOHNO M Comment: MICROSCOPIC EXAM NOT INDICATED Ordering Provider: EMMY TYLER Report Released Date/Time: Jan 24, 2024 03:32 PM Reporting Lab: [facility] [address] [place] [address] Performing Lab: [facility] [address] [place] [address] [facility] URINALYSI S BILIRUBIN. TOTAL [PRESENCE] IN URINE BY TEST STRIP NEGATIVE 01/23 Specimen Type: URINE,JOHNO M Comment: MICROSCOPIC EXAM NOT INDICATED Ordering Provider: EMMY TYLER Report Released Date/Time: Jan 24, 2024 03:32 PM Reporting Lab: [facility] [address] [place] [address] Performing Lab: [facility] [address] [place] [address] [facility] URINALYSI S KETONES [PRESENCE] IN URINE TRACE 01/23 Specimen Type: URINE,JOHNO M Comment: MICROSCOPIC EXAM NOT INDICATED Ordering Provider: EMMY TYLER Report Released Date/Time: Jan 24, 2024 03:32 PM Reporting Lab: [facility] [address] [place] [address] Performing Lab: [facility] [address] [place] [address] [facility] URINALYSI S GLUCOSE [MASS/VOLU ME] IN URINE BY TEST STRIP NEGATIVE 01/23 Specimen Type: URINE,JOHNO M Comment: MICROSCOPIC EXAM NOT INDICATED Ordering Provider: EMMY TYLER Report Released Date/Time: Jan 24, 2024 03:32 PM Reporting Lab: [facility] [address] [place] [address] Performing Lab: [facility] [address] [place] [address] [facility] URINALYSI S PROTEIN [PRESENCE] IN URINE BY TEST STRIP NEGATIVE 01/23 Specimen Type: URINE,JOHNO M Comment: MICROSCOPIC EXAM NOT INDICATED Ordering Provider: EMMY TYLER Report Released Date/Time: Jan 24, 2024 03:32 PM Reporting Lab: [facility] [address] [place] [address] Performing Lab: [facility] [address] [place] [address] [facility] URINALYSI S PH OF URINE BY TEST STRIP 5.5 5.0 - 9.0 01/23 Specimen Type: URINE,TANNER M Comment: MICROSCOPIC EXAM NOT INDICATED Ordering Provider: EMMY TYLER Report Released Date/Time: Jan 24, 2024 03:32 PM Reporting Lab: [facility] [address] [place] [address] Performing Lab: [facility] [address] [place] [address] [facility] URINALYSI S HEMOGLOBIN [PRESENCE] IN URINE BY TEST STRIP NEGATIVE 01/23 Specimen Type: URINE,RANDO M Comment: MICROSCOPIC EXAM NOT INDICATED Ordering Provider: EMMY TYLER Report Released Date/Time: Jan 24, 2024 03:32 PM Reporting Lab: [facility] [address] [place] [address] Performing Lab: [facility] [address] [place] [address] [facility] URINALYSI S NITRITE [PRESENCE] IN URINE BY TEST STRIP NEGATIVE 01/23 Specimen Type: URINE,RANDO M Comment: MICROSCOPIC EXAM NOT INDICATED Ordering Provider: EMMY TYLER Report Released Date/Time: Jan 24, 2024 03:32 PM Reporting Lab: [facility] [address] [place] [address] Performing Lab: [facility] [address] [place] [address] [facility] URINALYSI S LEUKOCYTE ESTERASE [PRESENCE] IN URINE BY TEST STRIP NEGATIVE 01/23 Specimen Type: URINE,RANDO M Comment: MICROSCOPIC EXAM NOT INDICATED Ordering Provider: EMMY TYLER Report Released Date/Time: Jan 24, 2024 03:32 PM Reporting Lab: [facility] [address] [place] [address] Performing Lab: [place] [address] [place] [address] [facility] URINALYSI S CLARITY OF URINE CLEAR 01/23 Specimen Type: URINE,RANDO M Comment: MICROSCOPIC EXAM NOT INDICATED Ordering Provider: EMMY TYLER Report Released Date/Time: Jan 24, 2024 03:32 PM Reporting Lab: [facility] [address] [place] [address] Performing Lab: [facility] [address] [place] [address] [facility] COMPREHEN SIVE METABOLIC PANEL CREATININE [MASS/VOLU ME] IN SERUM OR PLASMA 1.5 mg/dL 0.6 - 1.3 01/23 H Specimen Type: BLOOD No comment entered. Ordering Provider: EMMY TYLER Report Released Date/Time: Jan 24, 2024 03:32 PM Reporting Lab: [facility] [address] [place] [address] Performing Lab: [facility] [address] [place] [address] [facility] COMPREHEN SIVE METABOLIC PANEL UREA NITROGEN [MASS/VOLU ME] IN SERUM OR PLASMA 15 mg/dL 7 - 25 01/23 Specimen Type: BLOOD No comment entered. Ordering Provider: EMMY TYLER Report Released Date/Time: Jan 24, 2024 03:32 PM Reporting Lab: [facility] [address] [place] [address] Performing Lab: [facility] [address] [place] [address] [facility] COMPREHEN SIVE METABOLIC PANEL GLUCOSE [MASS/VOLU ME] IN SERUM OR PLASMA 67 mg/dL 74 - 109 01/23 L Specimen Type: BLOOD No comment entered. Ordering Provider: EMMY TYLER Report Released Date/Time: Jan 24, 2024 03:32 PM Reporting Lab: [facility] [address] [place] [address] Performing Lab: [facility] [address] [place] [address] [facility] COMPREHEN SIVE METABOLIC PANEL SODIUM [MOLES/VOL UME] IN SERUM OR PLASMA 140 mmol/L 136 - 145 01/23 Specimen Type: BLOOD No comment entered. Ordering Provider: EMMY TYLER Report Released Date/Time: Jan 24, 2024 03:32 PM Reporting Lab: [facility] [address] [place] [address] Performing Lab: [facility] [address] [place] [address] [facility] COMPREHEN SIVE METABOLIC PANEL POTASSIUM [MOLES/VOL UME] IN SERUM OR PLASMA 4.1 mmol/L 3.5 - 5.1 01/23 Specimen Type: BLOOD No comment entered. Ordering Provider: EMMY TYLER Report Released Date/Time: Jan 24, 2024 03:32 PM Reporting Lab: [facility] [address] [place] [address] Performing Lab: [facility] [address] [place] [address] [facility] COMPREHEN SIVE METABOLIC PANEL CHLORIDE [MOLES/VOL UME] IN SERUM OR PLASMA 103 mmol/L 98 - 107 01/23 Specimen Type: BLOOD No comment entered. Ordering Provider: EMMY TYLER Report Released Date/Time: Jan 24, 2024 03:32 PM Reporting Lab: [facility] [address] [facility] [address] Performing Lab: [facility] [address] [facility] [address] [facility] COMPREHEN SIVE METABOLIC PANEL CARBON DIOXIDE, TOTAL [MOLES/VOL UME] IN SERUM OR PLASMA 28 mmol/L 21 - 31 01/23 Specimen Type: BLOOD No comment entered. Ordering Provider: EMMY TYLER Report Released Date/Time: Jan 24, 2024 03:32 PM Reporting Lab: [facility] [address] [facility] [address] Performing Lab: [facility] [address] [facility] [address] [facility] [address] [facility] COMPREHEN SIVE METABOLIC PANEL CALCIUM [MASS/VOLU ME] IN SERUM OR PLASMA 9.6 mg/dL 8.6 - 10.3 01/23 Specimen Type: BLOOD No comment entered. Ordering Provider: EMMY TYLER Report Released Date/Time: Jan 24, 2024 03:32 PM Reporting Lab: [facility] [address] [facility] [address] Performing Lab: [facility] [address] [facility] [address] [facility] COMPREHEN SIVE METABOLIC PANEL PROTEIN [MASS/VOLU ME] IN SERUM OR PLASMA 7.3 g/dL 6.4 - 8.9 01/23 Specimen Type: BLOOD No comment entered. Ordering Provider: EMMY TYLER Report Released Date/Time: Jan 24, 2024 03:32 PM Reporting Lab: [facility] [address] [facility] [address] Performing Lab: [facility] [address] [facility] [address] [facility] COMPREHEN SIVE METABOLIC PANEL ALBUMIN [MASS/VOLU ME] IN SERUM OR PLASMA 4.9 g/dL 3.5 - 5.7 01/23 Specimen Type: BLOOD No comment entered. Ordering Provider: EMMY TYLER Report Released Date/Time: Jan 24, 2024 03:32 PM Reporting Lab: [facility] [address] [facility] [address] Performing Lab: [facility] [address] [place] [address] [facility] COMPREHEN SIVE METABOLIC PANEL BILIRUBIN. TOTAL [MASS/VOLU ME] IN SERUM OR PLASMA 0.8 mg/dL 0.3 - 1.0 01/23 Specimen Type: BLOOD No comment entered. Ordering Provider: EMMY TYLER Report Released Date/Time: Jan 24, 2024 03:32 PM Reporting Lab: [facility] [address] [facility] [address] Performing Lab: [facility] [address] [facility] [address] [facility] COMPREHEN SIVE METABOLIC PANEL ALKALINE PHOSPHATAS E [ENZYMATIC ACTIVITY/V OLUME] IN SERUM OR PLASMA 59 U/L 34 - 104 01/23 Specimen Type: BLOOD No comment entered. Ordering Provider: EMMY TYLER Report Released Date/Time: Jan 24, 2024 03:32 PM Reporting Lab: [facility] [address] [facility] [address] Performing Lab: [facility] [address] [place] [address] [facility] COMPREHEN SIVE METABOLIC PANEL ASPARTATE AMINOTRANS FERASE [ENZYMATIC ACTIVITY/V OLUME] IN SERUM OR PLASMA 49 U/L 13 - 39 01/23 H Specimen Type: BLOOD No comment entered. Ordering Provider: EMMY TYLER Report Released Date/Time: Jan 24, 2024 03:32 PM Reporting Lab: [facility] [address] [place] [address] Performing Lab: [facility] [address] [place] [address] [facility] COMPREHEN SIVE METABOLIC PANEL ALANINE AMINOTRANS FERASE [ENZYMATIC ACTIVITY/V OLUME] IN SERUM OR PLASMA 51 U/L 7 - 52 01/23 Specimen Type: BLOOD No comment entered. Ordering Provider: EMMY TYLER Report Released Date/Time: Jan 24, 2024 03:32 PM Reporting Lab: [facility] [address] [facility] [address] Performing Lab: [facility] [address] [facility] [address] [facility] COMPREHEN SIVE METABOLIC PANEL GLOMERULAR FILTRATION RATE/1.73 SQ M.PREDICTE D [VOLUME RATE/AREA] IN SERUM, PLASMA OR BLOOD BY CREATININE AND CYSTATIN C-BASED FORMULA (CKD-EPI 2020) 57 mL/min/{ 1.73_m2} 01/23 Specimen Type: BLOOD No comment entered. Ordering Provider: EMMY TYLER Report Released Date/Time: Jan 24, 2024 03:32 PM Reporting Lab: [facility] [address] [facility] [address] Performing Lab: [facility] [address] [facility] [address] [facility] Vital Signs Combined list of inpatient and outpatient Vital Signs from Department of Defense and Veterans Affairs, ranging from 12 months to all on record, depending upon the facility. Vital Sign Value Date Comments Source PAIN 5 02/26/2025 15:14:00 [facility] WEIGHT 292.77 02/09/2025 15:45:04 [facility] BMI 43 kg/m2 02/09/2025 15:45:04 [facility] SYSTOLIC BLOOD PRESSURE 129 12/04/2024 09:05:00 [facility] DIASTOLIC BLOOD PRESSURE 81 12/04/2024 09:05:00 [facility] PAIN 7 12/04/2024 09:05:00 [facility] PAIN 5 08/28/2024 14:45:00 [facility] PAIN 7 07/31/2024 13:05:00 [facility] Encounters Combined list of: 1) Encounters from Department of Veterans Affairs facilities going backup to the last 18 months, not all [place] inpatient encounters are included; 2) Encounters from the Department of Defense facilities going backup to 280 months. Location Location Details Encounter Type Encounter Number Reason For Visit Attending Provider ADM Date DC Date Status Disposition Source [facility] Outpatient Encounter [id number] 10/17 [facility] Outpatient Encounter [id number] 10/17 [facility] Outpatient Encounter [id number] 10/22 [facility] Outpatient Encounter [id number] 10/31 [facility] OFFICE O/P EST MOD 30 MIN [id number] Diagnos is: ICD-10- CM M25.569 Pain in unspeci fied knee IKE TYLER Y E 10/31 [facility] ASSISTIVE TECHNOLOGY ASSESS [id number] Diagnos is: ICD-10- CM M25.569 Pain in unspeci fied knee LIMBER,GRIFFIN SIE 11/05 [facility] Outpatient Encounter [id number] Diagnos is: ICD-10- CM M25.569 Pain in unspeci fied knee SUICO,CHAS PAEZ A 12/06 [facility] Outpatient Encounter [id number] 01/23 [facility] Outpatient Encounter [id number] Diagnos is: ICD-10- CM M54.50 Low back pain, unspeci fied IKE TYLER Y E 01/23 [facility] PSYTX W PT 30 MINUTES [id number] Diagnos is: ICD-10- CM F33.9 Major depress jersey disorde r, recurre nt, unspeci fied MIKELEDINSON BENITO ANNA S 01/23 [facility] OFFICE O/P EST LOW 20 MIN 08155-7.50 [id number] Diagnos is: ICD-10- CM M25.569 Pain in unspeci fied knee SUICO,CHAS PAEZ A 02/17 [facility] Outpatient Encounter [id number] 03/24 [facility] Outpatient Encounter [id number] MARIAM GOMEZ R 03/24 [facility] OFFICE O/P EST LOW 20 MIN 43436-8.50 [id number] Diagnos is: ICD-10- CM M54.50 Low back pain, unspeci fied Giuseppe MARTINEZ EONARDO R 03/24 [facility] ASSISTIVE TECHNOLOGY ASSESS 98054-2.50 [id number] Diagnos is: ICD-10- CM M54.50 Low back pain, unspeci fied LIMBER,GES SIE 04/07 [facility] OFFICE O/P [place] 60 MIN 00504-5.50 [id number] Diagnos is: ICD-10- CM F41.9 Anxiety disorde r, unspeci fied OSMONTANAWMANJULA Jenkins TIFAT 04/09 [facility] THERAPEUTI C EXERCISES 50290-8.50 [id number] Diagnos is: ICD-10- CM M54.50 Low back pain, unspeci fied RAMON GRAYS EPH 04/16 [facility] [place] Outpatient Encounter 06197-8.54 [id number] 05/01 DE[facility]AMP[facility] Outpatient Encounter 32747-5.50 [id number] ELLY DISLA A 05/02 [facility] [facility] [place] MTMS BY PHARM ADDL 15 MIN [id number] [id number] Diagnos is: ICD-10- CM F41.9 Anxiety disorde r, unspeci fied ELLY DISLA A 05/02 [facility] Outpatient Encounter [id number] 05/05 [facility] Outpatient Encounter [id number] 05/06 [facility] PSYTX W PT 30 MINUTES [id number] [id number] Diagnos is: ICD-10- CM F41.9 Anxiety disorde r, unspeci fied ROBI ROGERINA A 05/06 [facility] THERAPEUTI C EXERCISES [id number] [id number] Diagnos is: ICD-10- CM M54.50 Low back pain, unspeci fied LIMBER,GES SIE 05/06 [facility] HC PRO PHONE CALL 11-20 MIN [id number] [id number] Diagnos is: ICD-10- CM M25.569 Pain in unspeci fied knee SIENNA HARRIS L 05/19 [facility] PT RE-EVAL EST PLAN CARE [id number] [id number] Diagnos is: ICD-10- CM M54.50 Low back pain, unspeci fied LIMBER,GES SIE 06/02 [facility] [place] Outpatient Encounter [id number] [id number] 06/04 [facility] Outpatient Encounter [id number] [id number] ELLY DISLA A 06/05 [facility] [place] BY PHARM ADDL 15 MIN [id number] [id number] Diagnos is: ICD-10- CM F41.9 Anxiety disorde r, unspeci fied ELLY DISLA A 06/05 [facility] Outpatient Encounter [id number] 06/09 [facility] Outpatient Encounter [id number] 06/20 [facility] HC PRO PHONE CALL 5-10 MIN [id number] [id number] Diagnos is: ICD-10- CM F41.9 Anxiety disorde r, unspeci fied COLEMAN WHITNEY URIOSTEGUI Giuseppe 06/20 [facility] Outpatient Encounter [id number] [id number] 06/25 [facility] Outpatient Encounter [id number] [id number] 06/25 [facility] Outpatient Encounter [id number] [id number] 07/11 [facility] Outpatient Encounter [id number] [id number] 07/14 [facility] Outpatient Encounter [id number] [id number] 07/31 [facility] Outpatient Encounter [id number] [id number] 07/31 [facility] Outpatient Encounter [id number] [id number] 07/31 [facility] OFFICE O/P EST MOD 30 MIN [id number] [id number] Diagnos is: ICD-10- CM M25.569 Pain in unspeci fied knee IKE TYLER Y E DIRECTOR OF CLINICAL APPLICATIONS 07/31 [facility] Outpatient Encounter [id number] [id number] 08/01 [facility] Outpatient Encounter [id number] [id number] 08/22 [facility] Outpatient Encounter [id number] [id number] ELLY DISLA A 08/25 [facility] [place] BY PHARM ADDL 15 MIN [id number] [id number] Diagnos is: ICD-10- CM F41.9 Anxiety disorde r, unspeci fied ELLY DISLA A 08/25 [facility] [id number] [id number] Diagnos is: ICD-10- CM M25.569 Pain in unspeci fied knee SUICO,CHAS PAEZ A 08/28 [facility] PSYTX W PT 30 MINUTES [id number] [id number] Diagnos is: ICD-10- CM F32.A Depress ion, unspeci fied KYRIE ROGER A 09/04 [facility] OFFICE O/P EST LOW 20 MIN [id number] [id number] Diagnos is: ICD-10- CM F32.A Depress ion, unspeci fied OSINOWGregory,LA TIFAT 09/12 [facility] PSYTX W PT 60 MINUTES 50937-9.50 [id number] Diagnos is: ICD-10- CM F41.9 Anxiety disorde r, unspeci fied Juan PASTRANA 10/01 [facility] PSYTX W PT 60 MINUTES 31257-9.50 [id number] Diagnos is: ICD-10- CM F41.9 Anxiety disorde r, unspeci fied Juan PASTRANA 10/08 [facility] PH1 ASSMT&MGMT NQHP 5-10 [id number] [id number] Diagnos is: ICD-10- CM R68.89 Other general symptom s and signs FRANKIEMargarito HARLENE 10/13 [facility] PSYTX W PT 60 MINUTES 10812-5.50 [id number] Diagnos is: ICD-10- CM F41.9 Anxiety disorde r, unspeci fied Juan PASTRANA 10/22 [facility] PSYTX W PT 60 MINUTES 85357-7.50 [id number] Diagnos is: ICD-10- CM F41.9 Anxiety disorde r, unspeci fied Juan PASTRANA 11/05 [facility] PSYTX W PT 60 MINUTES 65584-3.50 [id number] Diagnos is: ICD-10- CM F41.9 Anxiety disorde r, unspeci fied Juan PASTRANA 11/19 [facility] PSYTX W PT 60 MINUTES 10023-8.50 [id number] Diagnos is: ICD-10- CM F41.9 Anxiety disorde r, unspeci fied Juan PASTRANA 11/26 [facility] [place] Outpatient Encounter [id number] [id number] 11/30 [facility] Outpatient Encounter [id number] [id number] 12/01 [facility] Outpatient Encounter [id number] [id number] 12/01 [facility] OFFICE O/P EST MOD 30 MIN [id number] [id number] Diagnos is: ICD-10- CM M54.50 Low back pain, unspeci fied IKE TYLER Y E DIRECTOR OF CLINICAL APPLICATIONS 12/04 [facility] PSYTX W PT 60 MINUTES 44616-4.50 [id number] Diagnos is: ICD-10- CM F41.9 Anxiety disorde r, unspeci fied Juan PASTRANA 12/10 [facility] Outpatient Encounter [id number] [id number] 12/11 [facility] Outpatient Encounter [id number] [id number] 12/11 [facility] PSYTX W PT 45 MINUTES [id number] [id number] Diagnos is: ICD-10- CM F41.9 Anxiety disorde r, unspeci fied VICTORIANO,Juan Cramer 12/17 [facility] Outpatient Encounter [id number] [id number] 12/23 [facility] Outpatient Encounter [id number] [id number] 01/01 [facility] Outpatient Encounter [id number] [id number] 01/14 [facility] Outpatient Encounter [id number] [id number] 01/28 [facility] OFFICE O/P EST LOW 20 MIN [id number] [id number] Diagnos is: ICD-10- CM F32.A Depress ion, unspeci fied OSINOWO,LA TIFAT 02/09 [facility] 15219-8.50 [id number] Diagnos is: ICD-10- CM M25.569 Pain in unspeci fied knee SUICO,CHAS JEANNINE A 02/26 [facility] Outpatient Encounter [id number] [id number] 02/26 [facility] Social History Combined list of available smoking, tobacco, and other social history from Department of Defense and Veterans Affairs facilities. Social History Type Response Date Comment Sourc e Tobacco smoking status NHIS VA-TOBACCO USE FORMER CIGARETTES 10/13/2024 [facility] History of tobacco use VA-TOBACCO USE EV MALENA DAY SMOKELESS 10/13/2024 [facility] History of tobacco use VA-TOBACCO USER EVERY DAY 4 [facility] History of tobacco use VA-TOBACCO USER EVERY DAY 3 [facility] This section is an empty social history section. DoD Plan of Care List of future care activities from Department of Veterans Affairs facilities. Additional future care activities may be listed in the Assessment and Plan section. Date/Time Care Activity Care Activity Detail Facili ty 04/20/2025 AMBULATORY - SURGERY AMBULATORY - SURGERY [facility]
--- OUTSIDE RECORDS SUMMARY | 2025-04-14 11:21 | XMS_ITS | Clinical Summary ---
Author Organization [facility] Address [address] [place] [address] Care Team Providers Care Literary Agent Name Role Phone Yola Nicole ANDREI Primary Care Provider [phone] Allergies No known active allergies Medications atorvastatin (Lipitor) 10 mg tablet 09/05/2022 Active metFORMIN (Glucophage) 500 mg tablet Take 1 tablet by mouth twice a day. Active omeprazole (PriLOSEC) [address] capsule Take 40 mg by mouth in the morning. Active venlafaxine XR (Effexor-XR) 37.5 mg 24 hr capsule Take 37.5 mg by mouth in the morning. Active Social History Tobacco Use Types Packs/Day Years Used Date Smoking Tobacco: Former Cigarettes Q uit: 2008 Smokeless Tobacco: Never Tobacco Cessation:Counseling Given: Not Answered [place] Safety & Environment Answer Date Rec orded Fear of Current or Ex-Partner Not on file Emotionally Abused Not on file 10/04/2023 Physically Abused Not on file 10/04/2023 Sexually Abused Not on file 10/04/2023 Physically or Sexually Abused Not on file Sex and Gender Information Value Date Recorded Sex Assigned at Not on file Legal Sex Male 12:02 AM EDT Gender Identity Not on file Sexual Orientation Not on file Last Filed Vital Signs Vital Sign Reading Time Taken Comments Blood Pressure - - Pulse - - Temperature - - Respiratory Rate - - Oxygen Saturation - - Inhaled Oxygen Concentration - - Weight 124 kg (273 lb) 02/15/2023 9:24 AM EDT Height 175.3 cm (5' 9 ) 02/15/2023 9:24 AM EDT Body Mass Index 40.32 02/15/2023 9:24 AM EDT Plan of Treatment Health Maintenance Due Date Last Done Comments CT Colonography 1975 Colonoscopy 1975 Colorectal Cancer Screening 1975 Diabetes: Hemoglobin A1C 1975 FIT-DNA 1975 FIT 1975 FOBT 1975 Sigmoidoscopy 1975 Diabetes: Retinopathy Screening 1985 Depression Screening 1987 Diabetes: Urine Protein Screening 1994 Hepatitis B Vaccines (1 of 3 - 19+ 3-dose series) 1994 Adult Tetanus 1997 COVID-19 Vaccine (3 - 2023-2 5 season) 2024 01/28/2021, 01/07/2021 Zoster Vaccines (1 of 2) 2025 Influenza Vaccine (#1) 2025 2, 07/29/2020 HIB Vaccines Aged Out No longer eligi ble based on patient's age to complete this topic HPV Vaccines Aged Out No longer eligi ble based on patient's age to complete this topic IPV Vaccines Aged Out No longer eligi ble based on patient's age to complete this topic Meningococcal B Vaccine Aged Out No l onger eligible based on patient's age to complete this topic Meningococcal Vaccine Aged Out No ar braulio eligible based on patient's age to complete this topic Pneumococcal Vaccine: Pediatrics (0 to 5 Years) and At-Risk Patients (6 to 64 Years) Aged Out No longer eligible b ased on patient's age to complete this topic Rotavirus Vaccines Aged Out No longer eligible based on patient's age to complete this topic Care Teams Literary Agent Relationship Specialty Start Date End Date Yola Nicole CNP [address] [place] [address], [place] [address] PCP - General Family Medicine 02/09/23
--- OUTSIDE RECORDS SUMMARY | 2025-04-14 11:22 | XMS_ITS | Clinical Summary ---
Author Organization [facility] Address [address] [place] [address] Care Team Providers Care Senior Analyst Developer Name Role Phone Yola Nicole MD Unavailable [phone] Gallito Arenas MD Primary Care Provider [phone] Rafael Lydia DO Unavailable [phone] Allergies No known active allergies Medications omeprazole (PriLOSEC) [address] capsule Take 40 mg by mouth in the morning. Active semaglutide (Ozempic, 1 MG/DOSE,) 2 MG/1.5ML solution pen-injector Inject 1 mg under the skin once a week Active atorvastatin (Lipitor) 10 MG tablet Take 10 mg by mouth in the morning. Active venlafaxine XR (Effexor XR) 37.5 MG 24 hr capsule Take 37.5 mg by mouth in the morning. Active irbesartan-hydro CHLOROthiazide (Avalide) 150-12.5 MG tablet Take 1 tablet by mouth in the morning. Active tiZANidine (Zanaflex) 4 MG tablet 1/2-1 TABLET AT BEDTIME NEEDED 4 Active testosterone cypionate (Depo-Testostero ne) 200 MG/ML injection Inject 100 mg into the shoulder, thigh, or buttocks every 14 (fourteen) days Active doxepin (SINEquan) 10 MG capsuleIndicatio ns:Insomnia, unspecified type 1-2 caps po QHS 60 capsule 3 4 Active Active Problems Problem Noted Date Diagnosed Date LEONIDAS (obstructive sleep apnea) 01/23/2024 Anxiety 01/23/2024 Other chronic pain 01/23/2024 Chronic low back pain 01/23/2024 Insomnia 01/23/2024 Family History Medical History Relation Name Comments Cancer Mother Relation Name Status Comments Father Mother Alive Social History Tobacco Use Types Packs/Day Years Used Date Smoking Tobacco: Unknown Alcohol Use Standard Drinks/Week Comments Not Currently 1 (1 standard drink = 0.6 oz pur e alcohol) Sex and Gender Information Value Date Recorded Sex Assigned at Not on file Legal Sex Male 3:33 PM EDT Gender Identity Not on file Sexual Orientation Not on file Last Filed Vital Signs Vital Sign Reading Time Taken Comments Blood Pressure 138/84 01/23/2024 4:24 PM EDT Pulse 87 01/23/2024 4:24 PM EDT Temperature - - Respiratory Rate - - Oxygen Saturation 96% 01/23/2024 4:24 PM EDT Inhaled Oxygen Concentration - - Weight 131 kg (288 lb) 01/23/2024 4:24 PM EDT Height 177.8 cm (5' 10 ) 01/23/2024 4:24 PM EDT Body Mass Index 41.32 01/23/2024 4:24 PM EDT Plan of Treatment Health Maintenance Due Date Last Done Comments CT Colonography 1975 Colonoscopy 1975 Colorectal Cancer Screening 1975 FIT-DNA 1975 FIT 1975 FOBT 1975 Sigmoidoscopy 1975 Influenza Vaccine (#1) 2025 09/09/2021, 2019 Insurance [facility] Care Teams Senior Analyst Developer Relationship Specialty Start Date End Date Gallito Arenas MD [address], [place] [id number] [phone] PCP - General Family Medicine 11/13/23 Yola Nicole MD [address], [place] [phone] Referring Physician Family Medicine 11/13/23 Lydia Hall DO [address] [place], [place] [id number] Referring Physician Neurology 11/13/23
--- OUTSIDE RECORDS SUMMARY | 2025-04-14 11:22 | XMS_ITS | Clinical Summary ---
Author Organization [facility] s tem Address [id number] [address] [place] [address] Care Team Providers Care Ring Conductor Name Role Phone Yola Nicole APRN-MAIL HANDLER ASSISTANT Primary Care Provider Allergies No known active allergies Medications irbesartan-hydr oCHLOROthiazide (AVALIDE) 150-12.5 mg per tablet Take 1 tablet by mouth in the morning. Active venlafaxine XR (EFFEXOR-XR) 37.5 mg 24 hr capsule Take 1 capsule (37.5 mg total) by mouth in the morning. Active omeprazole (PriLOSEC) 40 mg capsule Take 1 capsule (40 mg total) by mouth in the morning. Active semaglutide (OZEMPIC) 1 mg/dose (2 mg/1.5 mL) pen injector Inject 1 mg under the skin every 7 days. Due on Saturdays Active atorvastatin (LIPITOR) 10 mg tablet Take 1 tablet (10 mg total) by mouth in the morning. Active cyclobenzaprine (FLEXERIL) 10 mg tablet Take 1 tablet (10 mg total) by mouth 2 (two) times a day as needed for muscle spasms. 10 tablet 5 Active Active Problems Problem Noted Date Diagnosed Date Gastroenteritis 06/24/2023 Hypertension due to endocrine disorder 3 Type 2 diabetes mellitus wit hout complication, without long-term current use of insulin 06/24/2023 Other hyperlipidemia 06/24/2023 COVID-19 virus infection 06/24/2023 Family History Medical History Relation Name Comments Cancer Mother Relation Name Status Comments Mother Social History Tobacco Use Types Packs/Day Years Used Date Smoking Tobacco: Former Cigarettes Smokeless Tobacco: Current Snuff Tobacco Cessation:Ready to Q uit: Not Asked; Counseling Given: Not Answered Alcohol Use Standard Drinks/Week Comments No 0 (1 standard drink = 0.6 oz pur e alcohol) [facility] - Occupational Stress Questionnaire Answer Date Recorded Do you feel stress - tense, restless, nervous, or anxious, or unable to sleep at night because your mind is troubled all the time - these days? Not at all 06/24/2023 Childcare Answer Date Recorded Childcare Unknown 01/22/2019 Employment Answer Date Recorded Employment Unknown 01/22/2019 Hunger Screening Answer Date Recorded Within the past 12 months we worried whether our food would run out before we got money to buy more. Never True 11/30/2024 Within the past 12 months th e food we bought just didn't last and we didn't have money to get more. Never True 11/30/2024 Purpose - Life Answer Date Recorded Purpose and direction in life Unknown Sex and Gender Information Value Date Recorded Sex Assigned at Not on file Legal Sex Male 11:35 AM EDT Gender Identity Not on file Sexual Orientation Not on file Last Filed Vital Signs Vital Sign Reading Time Taken Comments Blood Pressure 163/91 11/30/2024 7:01 PM EDT Pulse 78 11/30/2024 9:00 PM EDT Temperature 37.1 C (98.7 F) 11/30/2024 7:01 PM EDT Respiratory Rate 18 11/30/2024 9:00 PM EDT Oxygen Saturation 98% 11/30/2024 9:00 PM EDT Inhaled Oxygen Concentration - - Weight 129.7 kg (286 lb) 11/30/2024 7:01 PM EDT Height 175.3 cm (5' 9 ) 11/30/2024 7:01 PM EDT Body Mass Index 42.23 11/30/2024 7:01 PM EDT Plan of Treatment Health Maintenance Due Date Last Done Comments Diabetic Ophthalmology Exam 1975 Statin Use: Diabetic 1975 Tobacco Counseling 1975 Depression Screening 1987 Adult BMI Follow Up Plan 1993 Diabetic Foot Exam 1993 DTaP,Tdap and Td Vaccines (1 - Tdap) 1994 COVID-19 Vaccine (3 - 2024-25 season) 2024, 01/07/2021 Zoster (Shingles) Vaccine (1 of 2) 2025 Influenza Vaccine 04/13/2025 09/09/2021, 07/29/2020 Adult BMI Screening 11/30/2025 11/30/2024 Tobacco Screening 11/30/2025 11/30/2024 Goals Goal Patient Goal Type Associated Problems Recent Progress Patient-Stated? Author safe discharge to home General Yes Coral Abdi, RN Note: Evaluation of progress towards goal: safe transition from hospital to home with and family support. Medical Devices Not on file Insurance Advance Directives * Full Code (Latest Code Status on File) Date Activated Date Inactivated Comments 06/24/2023 12:42 PM 06/25/2023 2:06 PM Care Teams Ring Conductor Relationship Specialty Start Date End Date Yola Nicole, LONG FILLER CIGAR ROLLER MACHINE-MAIL HANDLER ASSISTANT [address] [facility] [place] [phone] PCP - General Family Medicine 12/20/19
--- OUTSIDE RECORDS SUMMARY | 2025-04-14 11:30 | XMS_ITS | CCD ---
Author Organization [facility] Care Team Providers Care Medical Technologist [facility] Name Role Phone PHYSICIAN, DEFAULT Unavailable Unavailable PHYSICIAN, DEFAULT Unavailable Unavailable EBRAHEIM, YUNG Unavailable Unavailable EBRAHEIM, YUNG Unavailable Unavailable EBRAHEIM, YUNG Unavailable Unavailable ERENDIRA SAMPSON Unavailable Unavailable DOMINGUEZ, GAGANDEEP Consulting Unavailable DOMINGUEZ, GAGANDEEP Primary Care Unavailable DOMINGUEZ, GAGANDEEP Admitting Unavailable DOMINGUEZ, GAGANDEEP Attending Unavailable DOMINGUEZ, GAGANDEEP Primary Care Unavailable DOMINGUEZ, GAGANDEEP Admitting Unavailable DOMINGUEZ, GAGANDEEP Attending Unavailable DOMINGUEZ, GAGANDEEP Primary Care Unavailable DOMINGUEZ, GAGANDEEP Admitting Unavailable DOMINGUEZ, GAGANDEEP Attending Unavailable DOMINGUEZ, GAGANDEEP Consulting Unavailable DOMINGUEZ, GAGANDEEP Primary Care Unavailable DOMINGUEZ, GAGANDEEP Admitting Unavailable DOMINGUEZ, GAGANDEEP Attending Unavailable DOMINGUEZ, GAGANDEEP Attending Unavailable DOMINGUEZ, GAGANDEEP Consulting Unavailable DOMINGUEZ, GAGANDEEP Primary Care Unavailable DOMINGUEZ, GAGANDEEP Admitting Unavailable DO CAROLYN WILDER Emergency Provider GAGANDEEP MIX Primary Care Provider UnavailMAY Patel Attending Unavailable CAROLYN WILDER Attending Unavailable CAROLYN WILDER Primary Care Unavailable JENNIFER, JESSICA Referring Unavailable ROBBINS, SNEHA Attending Unavailable JENNIFER, JESSICA Referring Unavailable ROBBINS, SNEHA Attending Unavailable FORTUNATO, MATT Attending Unavailable JENNIFER, JESSICA Referring Unavailable JENNIFER, JESSICA Referring Unavailable BRUSS, MATT Attending Unavailable JENNIFER, JESSICA Referring Unavailable ROBBINS, SNEHA Attending Unavailable ROBBINS, SNEHA Attending Unavailable JENNIFER, JESSICA Referring Unavailable JENNIFER, JESSICA Referring Unavailable ROSENDO, SNEHA Attending Unavailable DESIREE JAMES Attending Unavailable JENNIFER, JESSICA Referring Unavailable JENNIFER, JESSICA Referring Unavailable JENNIFER, JESSICA Referring Unavailable KALEN CLIFFORD Attending Unavailable JESSICA RODRIGUEZ Referring Unavailable MATT BUCIO Attending Unavailable JESSICA RODRIGUEZ Referring Unavailable SNEHA ROBBINS Attending Unavailable KALEN CLIFFORD Attending Unavailable JESSICA RODRIGUEZ Referring Unavailable JESSICA RODRIGUEZ Referring Unavailable SNEHA ROBBINS Attending Unavailable JESSICA RODRIGUEZ Attending Unavailable NEISHA HOWARD Referring Unavailable JESSICA RODRIGUEZ Referring Unavailable SNEHA ROBBINS Attending Unavailable MATT BUCIO Attending Unavailable JESSICA RODRIGUEZ Referring Unavailable MOHSEN LALA Attending Unavailable ANGELIQUE BOLDEN Attending Unavailable GAGANDEEP MIX Primary Care Unavailable Medications Current Medications Medication Drug Class(es) Dates Sig (Normalized) Sig (Original) atorvastatin 10 mg oral tablet (1 source) HMG-CoA Reductase Inhibitor Start: 09-17-2022 take 10 mg by mouth once daily in the evening Atorvastatin Active 10 MG PO Every evening September 17, 2022 12:00am hydroCHLOROthiazide 12.5 mg / irbesartan 150 mg oral tablet (1 source) Thiazide Diuretic, Angiotensin 2 Receptor Karli Start: 09-17-2022 take 1 tablet by mouth once daily Irbesartan-Point Clear chlorothiazide Active 1 TAB PO Daily September 17, 2022 12:00am metFORMIN hydrochloride 500 mg oral tablet (1 source) Biguanide Start: 09-17-2022 take 500 mg by mouth twice daily Metformin Active 500 MG PO 2 times per day September 17, 2022 12:00am omeprazole 40 mg delayed release oral capsule (1 source) Proton Pump Inhibitor Start: 09-17-2022 take 40 mg by mouth once daily Omeprazole Active 40 MG PO Daily September 17, 2022 12:00am 24 hr venlafaxine 75 mg extended release oral capsule (1 source) Serotonin and Norepinephrine Reuptake Inhibitor Start: 09-17-2022 take 75 mg by mouth once daily in the morning Venlafaxine Active 75 MG PO Every morning September 17, 2022 12:00am Problems Active Problems Problem Classification Problem Date Documented Date Episodic/Chronic Conditions associated with dizziness or vertigo (1 source) Dizziness and giddiness; Translations: [Dizziness and giddiness] Onset: 09-17-2022 Episodic Diabetes mellitus without complication (4 sources) Type 2 diabetes mellitus without complications; Translations: [TYPE 2 DM WITHOUT COMPLICATIONS] Onset: 07-28-2022 Chronic Diabetes mellitus without complication (1 source) Hyperglycemia; Translations: [Hyperglycemia, unspecified] 09-17-2022 Episodic Disorders of lipid metabolism (1 source) Hyperlipidemia, unspecified; Translations: [HYPERLIPIDEMIA UNSPECIFIED] Onset: 08-02-2022 Chronic Essential hypertension (1 source) Essential (primary) hypertension; Translations: [ESSENTIAL PRIMARY HYPERTENSION] Onset: 08-02-2022 Chronic Joint disorders and dislocations; trauma-related (2 sources) Patellofemoral disorders, right knee; Translations: [Patellofemoral disorders, right knee] Onset: 08-02-2023 Chronic Joint disorders and dislocations; trauma-related (2 sources) Patellofemoral disorders, left knee; Translations: [Patellofemoral disorders, left knee] Onset: 08-02-2023 Chronic Malaise and fatigue (1 source) Other fatigue; Translations: [OTHER FATIGUE] Onset: 08-02-2022 Episodic Nausea and vomiting (1 source) Nausea; Translations: [Nausea] 09-17-2022 Episodic Osteoarthritis (1 source) Unilateral primary osteoarthritis, right knee; Translations: [UNILATERAL PRIMARY OSTEOARTHRITIS, RIGHT KNEE] Onset: 09-10-2017 Chronic Other nervous system disorders (2 sources) Other chronic pain; Translations: [Other chronic pain] Onset: 09-17-2023 Chronic Other nervous system disorders (2 sources) Numbness Onset: 11-30-2024 Episodic Other non-traumatic joint disorders (5 sources) Pain in right knee; Translations: [PAIN IN RIGHT KNEE] Onset: 09-10-2017 Episodic Other non-traumatic joint disorders (2 sources) Pain in left knee; Translations: [Pain in left knee] Onset: 09-17-2023 Episodic Other upper respiratory infections (1 source) Chronic sinusitis, unspecified; Translations: [CHRONIC SINUSITIS UNSPECIFIED] Onset: 03-06-2022 Chronic Other upper respiratory infections (4 sources) Acute sinusitis, unspecified; Translations: [ACUTE SINUSITIS UNSPECIFIED] Onset: 07-31-2022 Episodic Spondylosis; intervertebral disc disorders; other back problems (1 source) Sciatica, right side; Translations: [Sciatica, right side] Onset: 11-30-2024 Episodic Unclassified (2 sources) Unknown / UNK(Unknown) Onset: 09-10-2017 Unclassified (3 sources) CONTACT W/AND (SUSP) EXPOS COVID-19; Translations: [CONTACT W/AND (SUSP) EXPOS COVID-19] Onset: 03-06-2022 Viral infection (1 source) COVID-19; Translations: [COVID-19] Onset: 03-06-2022 Past or Other Problems Problem Classification Problem Date Documented Da te Episodic/Chronic Unclassified (1 source) CONTACT W/AND (SUSP) EXPOS COVID-19; Translations: [CONTACT W/AND (SUSP) EXPOS COVID-19] Onset: 03-02-2022 Results Test Name Value Interpretation Reference Range Facility XR HIP RT 2-3 VIEWS W OR WO PELVISon 11-30-2024 XR HIP RT 2-3 VIEWS W OR WO PELVIS XR HIP RT 2-3 VIEWS W OR WO PELVIS XR HIP RT 2-3 VIEWS W OR WO PELVIS: 11/30/2024 PROVIDED HISTORY: * 49 years old Male * Right hip pain, sciatica COMPARISON: None. TECHNIQUE: AP view of the pelvis, AP and frogleg views of the right hip were obtained. Findings/impression: 1. No acute fracture or dislocation of the right hip. 2. Mild degenerative changes of the right hip. Joint space is relatively preserved. 3. Sacroiliac joints are relatively intact. Finalized by Minesh Perry MD on 11/30/2024 8:34 PM Normal [facility] Treatmenton 10-04-2023 Treatment [id number] Jigna Choilo 1975 M Date Provider Department Center 10/04/2023 KALEN BANDA MP PT Medical Pavi No family history on file Normal [facility] Treatmenton 09-26-2023 Treatment [id number] DwayneNanette 1975 M Date Provider Department Center 09/26/2023 MATT MAGANA MP PT Medical [facility]avi No family history on file Normal [facility] Treatmenton 09-17-2023 Treatment [id number] Dwayne,Nanette 1975 M Date Provider Department Center 09/17/2023 SNEHA MARTINEZ MP PT Medical Pavi No family history on file Normal [facility] Treatmenton 08-10-2023 Treatment [id number] Jigna Choilo 1975 M Date Provider Department Center 08/10/2023 SNEHA MARTINEZ MP PT Medical Pavi No family history on file Normal [facility] Treatmenton 08-02-2023 Treatment [id number] DwayneNanette 1975 M Date Provider Department Center 08/02/2023 MATT MAGANA MP PT Medical [facility]avi No family history on file Normal [facility] Treatmenton 07-26-2023 Treatment [id number] DwayneNanette 1975 M Date Provider Department Center 07/26/2023 MATT MAGANA MP PT Medical Pavi No family history on file Normal [facility] Telephoneon 07-19-2023 Telephone [id number] DwayneNanette 1975 M Date Provider Department Center 07/19/2023 SNEHA MARTINEZ MP PT Medical Pavi No family history on file Normal [facility] Treatmenton 06-15-2023 Treatment [id number] DwayneNanette 1975 M Date Provider Department Center 06/15/2023 SNEHA MARTINEZ MP PT Medical Pavi No family history on file Normal [facility] Treatmenton 05-29-2023 Treatment [id number] DwayneNanette 1975 M Date Provider Department Center 05/29/2023 KALEN BANDA MP PT Medical Pavi No family history on file Normal [facility] Treatmenton 05-24-2023 Treatment [id number] DwayneNanette 1975 M Date Provider Department Center 05/24/2023 MATT MAGANA MP PT Medical Pavi No family history on file Normal [facility] Treatmenton 05-17-2023 Treatment [id number] DwayneNanette 1975 M Date Provider Department Center 05/17/2023 SNEHA MARTINEZ MP PT Medical Pavi No family history on file Normal [facility] Treatmenton 05-15-2023 Treatment [id number] DwayneNanette 1975 M Date Provider Department Center 05/15/2023 SNEHA MARTINEZ MP PT Medical Pavi No family history on file Normal [facility] Treatmenton 05-10-2023 Treatment [id number] Nanette Choi 1975 M Date Provider Department Center 05/10/2023 SNEHA MARTINEZ MP PT Medical Pavi No family history on file [facility] Treatmenton 04-28-2023 Treatment [id number] Nanette Choi 1975 M Date Provider Department Center 04/28/2023 DESIREE DE SANTIAGO MP PT Medical Pavi No family history on file [facility] Treatmenton 04-20-2023 Treatment [id number] Nanette Choi 1975 M Date Provider Department Center 04/20/2023 SNEHA MARTINEZ MP PT Medical Pavi No family history on file [facility] 36on 03-28-2023 36 To see if he could m ove his appt up in the day any time before 3pm. Okay to Double book. [facility] 03-22-2023 36 Patients synvisc nev er got submitted so we can not inject at his regular scheduled appt. Called patient to see if he still wanted to come in to be seen as a check up or if he wants to reschedule for after the injection was approved. [facility] Orders Onlyon 03-15-2023 Orders Only [id number] Nanette Choi 1975 M Date Provider Department Center 03/15/2023 JESSICA PRINCE [facility] FM Comprehensiv No family history on file [facility] Office Visiton 02-15-2023 Follow-up visit [id number] Nanette Choi 1975 M Date Provider Department Center 02/15/2023 JESSICA PRINCE ORTHO MPORTHO No family history on file Level of Service:29644 SC OFFICE/OUTPATIENT NEW LOW MDM 30-44 MINUTES Reason for Visit and Comments: Pain [136] Pain [136] [facility] Absolute immature granulocyt e countOrdered By: RITA LYLES on 09-17-2022 Immature granulocytes (Bld) [#/Vol] 0.02 10:3/uL 0.01-0.2 [place] Absolute lymphocyte countOrd ered By: RITA LYLES on 09-17-2022 Lymphocytes Auto (Unsp spec) [#/Vol] 1.48 10:3/uL Low 1.5-4.0 [place] Basic Metabolic Panelon Anion gap [Moles/Vol] 15 mmol/L Normal 9-15 [facility] Comment on above: Performed By: #### T PNT-hs, CHEM7 #### [facility] [address] [place] [address] , Billy Vega M.D. FCAP, FASCP Calcium [Mass/Vol] 10.2 mg/dL High 8.6-10.0 [facility] Comment on above: Performed By: #### T AMBROSIOT-hs, CHEM7 #### [address] [id number] , Melida JonesAP, FASCP Chloride [Moles/Vol] 89 mmol/L Low 98-107 [facility] Comment on above: Performed By: #### T DONY-adriano, CHEM7 #### [address], [place] [id number] , Melida JonesAP, FASCP CO2 [Moles/Vol] 28 mmol/L Normal 22-29 [facility] Comment on above: Performed By: #### T PNT-hs, CHEM7 #### [address] [place] [address] , Billy Vega M.D. FCAP, FASCP Creatinine [Mass/Vol] 1.30 mg/dL High 0.67-1.17 [facility] Comment on above: Performed By: #### T PNT-hs, CHEM7 #### [address] [place] [id number] , Billy Vega M.D. FCAP, FASCP GFR/1.73 sq M.predicted among non-blacks MDRD (S/P/Bld) [Vol rate/Area] 59 mL/min/{1.73_m2} Normal [facility] Comment on above: Result Comment: THE GFR IS ESTIMATED USING THE MDRD STUDY EQUATION. *NOTE* IF THE RACE OF THE PATIENT WAS UNKNOWN AT THE TIME OF REGISTRATION, AND THE PATIENT IS , MULTIPLY THE EGFR RESULT PROVIDED BY 1.21. EGFR <60.0 COULD BE ABNORMAL. Performed By: #### T PNT-hs, CHEM7 #### [address] [address] , Billy Vega M.D. FCAP, FASCP Glucose [Mass/Vol] 572 mg/dL Critically high 70-100 M [facility] Comment on above: Result Comment: Vangie t Value called to CAMPBELLGARFIELD YATES, DATE: 2022-09-17 12:15:05 BY:MICHELLE Read Back? YES INTREPRETATION FOR FASTING BLOOD GLUCOSE: 70-100 mg/dl NORMAL GLUCOSE TOLERANCE 100-125 mg/dl IMPAIRED FASTING GLUCOSE (PRE-DIABETES) >125 mg/dl DIABETES - ON MORE THAN ONE TESTING ALERT VALUE ATTENTION NURSING ALERT VALUE NOTIFY PHYSICIAN WITHIN 30 MINUTES OF RECEIVING THIS REPORT Performed By: #### T PNT-hs, CHEM7 #### [address] [address] , Billy Vega M.D. FCAP, FASCP Potassium [Moles/Vol] 4.3 mmol/L Normal 3.6-5.0 [facility] Comment on above: Performed By: #### T PNT-hs, CHEM7 #### [facility] [address] [place] [address] , Billy Vega M.D. FCAP, FASCP Sodium [Moles/Vol] 132 mmol/L Low 136-145 [facility] Comment on above: Performed By: #### T PNT-hs, CHEM7 #### [facility] [address] [facility] [place], [place] [id number] , Billy Vega M.D. FCAP, FASCP Urea nitrogen [Mass/Vol] 15.5 mg/dL Normal 6.0-20.0 [facility] Comment on above: Performed By: #### T PNT-hs, CHEM7 #### [facility] [address] [facility] [place], [place] [id number] , Billy Vega M.D. FCAP, FASCP Blood Glucose Meteron 2022 Glucose [Mass/Vol] 582 mg/dL Critically high 70-100 M [facility] Comment on above: Performed By: #### A CC #### [facility] [address], [place] [id number] , Billy Vega M.D. FCAP, FASCP Blood basophils count (numbe r/volume)Ordered By: RITA LYLES on 09-17-2022 Basophils (Bld) [#/Vol] 0.05 10:3/uL 0.0-0.2 [place] Blood eosinophils count (num hoda/volume)Ordered By: RITA LYLES on 09-17-2022 Eosinophils (Bld) [#/Vol] 0.06 10:3/uL 0.0-0.5 [place] Blood erythrocytes count (nu mber/volume)Ordered By: RITA LYLES on 09-17-2022 RBC (Bld) [#/Vol] 5.08 10:6/uL 4.40-5.[address] [facility] Blood hemoglobin measurement (mass/volume)Ordered By: RITA LYLES on 09-17-2022 Hemoglobin (Bld) [Mass/Vol] 15.7 g/dL 13.3-17.7 [place] Blood leukocytes count (numb er/volume)Ordered By: RITA LYLES on 09-17-2022 WBC (Bld) [#/Vol] 5.0 10:3/uL 3.9-10.6 [facility] Blood nucleated erythrocytes count (number/volume)Ordered By: RITA LYLES on 09-17-2022 Nucleated RBC (Bld) [#/Vol] 0.00 10:3/uL <0 [place] Blood platelet countOrdered By: RITA LYLES on 09-17-2022 Platelets (Bld) [#/Vol] 192 10:3/uL 130-440 [place] CBC With Differentialon 02 CBC Manual Diff NO Normal [facility] Comment on above: Performed By: #### C BCD #### [address] [id number] , Billy Vega M.D. FCAP, FASCP Basophils, Absolute 0.05 10:3/uL Normal 0.0-0.2 [facility] Comment on above: Performed By: #### C BCD #### [address] [id number] , Billy Vega M.D. FCAP, FASCP Eosinophils, Absolute 0.06 10:3/uL Normal 0.0-0.5 [facility] Comment on above: Performed By: #### C BCD #### [address] [id number] , Billy Vega M.D. FCAP, FASCP Hematocrit (Bld) [Volume fraction] 44.4 % Normal 40.0-52.0 [facility] Comment on above: Performed By: #### C BCD #### [address] [id number] , Billy Vega M.D. FCAP, FASCP Hemoglobin (Bld) [Mass/Vol] 15.7 g/dL Normal 13.3-17.7 [facility] Comment on above: Performed By: #### C BCD #### [address] [id number] , Billy Vega M.D. FCAP, FASCP Immature Granulocyte, Absolute 0.02 10:3/uL Normal 0.01-0.2 [facility] Comment on above: Performed By: #### C BCD #### [address] [id number] , Billy Vega M.D. FCAP, FASCP Immature granulocytes/100 WBC (Bld) 0.4 % Normal 0-0.9 [facility] Comment on above: Performed By: #### C BCD #### [address] [id number] , Billy Vega M.D. FCAP, FASCP [id number] 1.0 % Normal 0-1.0 [facility] Comment on above: Performed By: #### C BCD #### [address] [id number] , Billy Vega M.D. FCAP, FASCP [id number] 1.2 % Normal 0.0-3.0 [facility] Comment on above: Performed By: #### C BCD #### [address] [id number] , Melida JonesAP, FASCP [id number] 29.8 % Normal 20.0-40.0 [facility] Comment on above: Performed By: #### C BCD #### [address] [id number] , Billy Vega M.D. FCAP, FASCP [id number] 7.5 % Normal 4.0-10.0 [facility] Comment on above: Performed By: #### C BCD #### [address] [id number] , Billy Vega M.D. FCAP, FASCP [id number] 2.98 10:3/uL Normal 2.0-7.0 [facility] Comment on above: Performed By: #### C BCD #### [address] [id number] , Billy Vega M.D. FCAP, FASCP [id number] 0.37 10:3/uL Normal 0.2-0.8 [facility] Comment on above: Performed By: #### C BCD #### [address] [id number] , Billy Vega M.D. FCAP, FASCP [id number] 0 /100WBC Normal -0 [facility] Comment on above: Performed By: #### C BCD #### [address] [id number] , Billy Vega M.D. FCAP, FASCP Lymphocytes, Absolute 1.48 10:3/uL Low 1.5-4.0 [facility] Comment on above: Performed By: #### C MICHELLE #### [address] [id number] , Billy Vega M.D. FCAP, FASCP MCH (RBC) [Entitic mass] 30.9 pg Normal 27.0-40.0 [facility] Comment on above: Performed By: #### C BCD #### [address] [id number] , Billy Vega M.D. FCAP, FASCP Mean Corpusc Hgb Concentration 35.4 G/DL Normal 31.0-36.0 [facility] Comment on above: Performed By: #### C BCD #### [address] [id number] , Billy Vega M.D. FCAP, FASCP Mean Corpuscular Volume 87.4 CU uM Normal 80.0-100.0 [facility] Comment on above: Performed By: #### C BCJhonatan #### [address] [id number] , Billy Vega M.D. FCAP, FASCP Neutrophils/100 WBC (Bld) 60.1 % Normal 54.0-62.0 [facility] Comment on above: Performed By: #### C BCD #### [address] [id number] , Billy Vega M.D. FCAP, FASCP Nucleated RBC's, Absolute 0.00 10:3/uL Normal -0 [facility] Comment on above: Performed By: #### C BCD #### [address] [id number] , Billy Vega M.D. FCAP, FASCP Platelet Count 192 10:3/uL Normal 130-440 [facility] Comment on above: Performed By: #### C MICHELLE #### [address] [id number] , Melida JonesAP, FASCP Red Blood Cell Count 5.08 10:6/uL Normal 4.40-5.90 [facility] Comment on above: Performed By: #### C BCD #### [address] [id number] , Billy Vega M.D. FCAP, FASCP Red Cell Distribution 12.0 Normal 11.5-14.5 [facility] Comment on above: Performed By: #### C BCD #### [address] [id number] , Billy Vega M.D. FCAP, FASCP White Blood Cell Count 5.0 10:3/uL Normal 3.9-10.6 M [facility] Comment on above: Performed By: #### C BCD #### [facility] [address] [place] [address] , Billy Vega M.D. FCAP, FASCP Complete blood count (CBC) w ith reflex manual white blood cell differentialOrdered By: RITA LYLES on 09-17-2022 CBC W Reflex Manual Differential panel (Bld) No [place] Determination of erythrocyte mean corpuscular volume (MCV)Ordered By: RITA LYLES on 09-17-2022 MCV (RBC) [Entitic vol] 87.4 CU uM 80.0-100.0 [place] Erythrocyte distribution wid th standard deviationOrdered By: RITA LYLES on 09-17-2022 Erythrocyte distribution width (RBC) [Entitic vol] 12.0 fL 11.5-14.5 [place] Erythrocyte mean corpuscular hemoglobin concentration measurement (mass/volume)Ordered By: RITA LYLES on 09-17-2022 MCHC (RBC) [Mass/Vol] 35.4 g/dL 31-36 [facility] Glucose (Bld) [Mass/Vol]Orde red By: CAROLYN WILDER on 09-17-2022 Glucose [Mass/Vol] 582 mg/dL High 70-100 [facility] Hematocrit Auto (Bld) [Volum e fraction]Ordered By: RITA LYLES on 09-17-2022 Hematocrit (Bld) [Volume fraction] 44.4 % 40.0-52.0 [place] Immature granulocytes/100 WB C Auto (Bld)Ordered By: RITA LYLES on 09-17-2022 Immature granulocytes/100 WBC (Bld) 0.4 % 0-0.9 [facility] - Chemistry and C hemistry - challengeOrdered By: RITA LYLES on 09-17-2022 GFR/1.73 sq M.predicted among non-blacks MDRD (S/P/Bld) [Vol rate/Area] 59 mL/min/{1.73_m2} [facility] Comment on above: EGFR <60.0 COULD BE ABNORMAL.THE GFR IS ESTIMATED USING THE MDRD STUDY EQUATION.*NOTE* IF THE RACE OF THE PATIENT WAS UNKNOWN AT THE TIME OFREGISTRATION, AND THE PATIENT IS , MULTIPLYTHE EGFR RESULT PROVIDED BY 1.21. Laboratory - Hematology and Cell countsOrdered By: RITA LYLES on 09-17-2022 MCH (RBC) [Entitic mass] 30.9 pg 27-40 [facility] Lymphocyte percentOrdered By : RITA LYLES on 09-17-2022 Basophils/100 WBC (Bld) 1.0 % 0-1.0 [place] Eosinophils/100 WBC (Bld) 1.2 % 0.0-3.0 [place] Lymphocyte percent 2.98 10:3/uL 2.0-7.0 [facility] Lymphocyte percent 0.37 10:3/uL 0.2-0.8 [facility] Lymphocyte percent 0 /100WBC <0 [facility] Lymphocytes/100 WBC (Bld) 29.8 % 20.0-40.0 [facility] Monocytes/100 WBC (Bld) 7.5 % 4.0-10.0 [place] Segmented neutrophils/100 WB C Auto (Bld)Ordered By: RITA LYLES on 09-17-2022 Segmented neutrophils/100 WBC (Bld) 60.1 % 54.0-62.0 [place] Serum or plasma anion gapOrd ered By: RITA LYLES on 09-17-2022 Anion gap [Moles/Vol] 15 mmol/L 9-15 [facility] Serum or plasma calcium michelle urement (mass/volume)Ordered By: RITA LYLES on 09-17-2022 Calcium [Mass/Vol] 10.2 mg/dL High 8.6-10.0 [facility] Serum or plasma carbon dioxi de, total measurement (moles/volume)Ordered By: RITA LYLES on 09-17-2022 CO2 [Moles/Vol] 28 mmol/L 22-29 [place] Serum or plasma chloride shaylee surement (moles/volume)Ordered By: RITA LYLES on 09-17-2022 Chloride [Moles/Vol] 89 mmol/L Low 98-107 [facility] Serum or plasma creatinine m easurement (mass/volume)Ordered By: RITA LYLES on 09-17-2022 Creatinine [Mass/Vol] 1.30 mg/dL High 0.67-1.17 [facility] Serum or plasma glucose michelle urement (mass/volume)Ordered By: RITA LYLES on 09-17-2022 Glucose [Mass/Vol] 572 mg/dL High 70-100 [facility] Comment on above: Alert Value called haseeb YATES, DATE: 2022-09-17 12:15:05 BY:ANOLAN Read Back? YES ALERT VALUE ATTENTION NURSING ALERT VALUE NOTIFY PHYSICIAN WITHIN 30 MINUTES OF RECEIVING THIS REPORTINTREPRETATION FOR FASTING BLOOD GLUCOSE: 70-100 mg/dl NORMAL GLUCOSE [id number] mg/dl IMPAIRED FASTING GLUCOSE (PRE-DIABETES)>125 mg/dl DIABETES - ON MORE THAN ONE TESTING Serum or plasma potassium me asurement (moles/volume)Ordered By: RITA LYLES on 09-17-2022 Potassium [Moles/Vol] 4.3 mmol/L 3.6-5.0 [facility] Serum or plasma sodium measu rement (moles/volume)Ordered By: RITA LYLES on 09-17-2022 Sodium [Moles/Vol] 132 mmol/L Low 136-145 [facility] Serum or plasma urea nitroge n measurement (mass/volume)Ordered By: RITA LYLES on 09-17-2022 Urea nitrogen [Mass/Vol] 15.5 mg/dL 6.0-20.0 [place] Troponin T.cardiac [Mass/vol ume] in Serum or Plasma by High sensitivity methodOrdered By: RITA LYLES on 09-17-2022 Troponin T.cardiac High sensitivity method [Mass/Vol] 7 ng/L 6-22 [place] Comment on above: <6 ng/L Negative>/= 6 - <52 ng/L Suggest 1-hour delta hs- cTn>/= 52 ng/L Consistent with Nitin distinguish between acute and chronic elevations of Cardiac Troponin (cTn), the [place] Definition of [place] stresses the need for serial testing to detect a rise and/or fall of cTn above the 99th percentile upper reference limit of 22 ng/L, males and 14 ng/L, females consistent with clinical assessment, including ischemic symptoms and electrocardiographic changes XR Chest 2V [facility] 023 XR Chest 2V [facility] SYST EM [place] Name: NANETTE CHOI [address] Phys: [place] [address] : 1975 Age: 47 Acct: [id number] Loc: ER MRN/Unit No.: [id number] Status: REG ER Exam Date: 09/17/22 Accession Number: [id number] Exam: [id number] RAD/XR Chest 2V PA Lat XR Chest 2V PA Lat EXAMINATION: XR Chest 2V PA Lat, 09/17/2022 12:40 PM EST HISTORY: Weakness COMPARISON: None. TECHNIQUE: Chest x-ray: Two views. FINDINGS: No focal consolidations or pleural effusions. Cardiomediastinal silhouette is unremarkable. Visualized osseous structures are unremarkable. IMPRESSION: No acute disease. CC: GAGANDEEP MIX; RITA LYLES Technologist: REGINA MCFARLAND Dictated By: BEVERLEY ROBERT MD Signed Date/Time: 09/17/22, 1254 This report was electronically signed in another vendor system Normal [facility] fg-Bryoqkn-Zehtknyghb 2022 lc-Rpngloo-Hzqtvqfs 7 ng/L Normal <23 [facility] Comment on above: Result Comment: <6 n g/L Negative >/= 6 - <52 ng/L Suggest 1-hour delta hs-cTn >/= 52 ng/L Consistent with [place] To distinguish between acute and chronic elevations of Cardiac Troponin (cTn), the [place] Definition of GA stresses the need for serial testing to detect a rise and/or fall of cTn above the 99th percentile upper reference limit of 22 ng/L, males and 14 ng/L, females consistent with clinical assessment, including ischemic symptoms and electrocardiographic changes Performed By: #### T PNT-hs #### [facility] [address] [place] [id number] , Billy Vega M.D. FCAP, FASCP cl-Ocsnpgk-Unvoqukf 9 ng/L Normal <23 [facility] Comment on above: Result Comment: <6 n g/L Negative >/= 6 - <52 ng/L Suggest 1-hour delta hs-cTn >/= 52 ng/L Consistent with [place] To distinguish between acute and chronic elevations of Cardiac Troponin (cTn), the [place] Definition of GA stresses the need for serial testing to detect a rise and/or fall of cTn above the 99th percentile upper reference limit of 22 ng/L, males and 14 ng/L, females consistent with clinical assessment, including ischemic symptoms and electrocardiographic changes Performed By: #### T PNT-hs, CHEM7 #### [facility] [address] [place], [place] [id number] , Billy Vega M.D. FCAP, FASCP Covid-19 PCR (CVDTBH)on 07-13 SARS-CoV-2 (COVID-19) RNA PATSY+probe Ql (Unsp spec) Not detected Normal NOT DETECTED [facility] Comment on above: Result Comment: This test is not yet approved or cleared by the [place] FDA. When there are no FDA-approved or cleared tests available, and other criteria are met, FDA can make tests available under an emergency access mechanism called an Emergency Use Authorization (EUA). The EUA for this test is supported by the [place] of Health and Human Service's (HHS's) declaration that circumstances exist to justify the emergency use of in vitro diagnostics for the detection and/or diagnosis of the virus that causes COVID-19. This EUA will remain in effect (meaning this test can be used) for the duration of the COVID-19 declaration justifying emergency of IVDs, unless it is terminated or revoked by FDA (after which the test may no longer be used). When diagnostic testing is negative, the possibility of a false negative should be considered in the context of a patient's recent exposures and the presence of clinical signs and symptoms consistent with SARS-CoV-2. Performed By: #### C VDTB #### [facility] [address] [place] [address] Dr. Hilario Wang INFLUENZA A AND B AGon 07-31 INFLUANEGH SEE BELOW Normal [facility] Comment on above: Result Comment: Nega tive for Flu A protein angiten. Infection due to Flu A cannot be ruled out. Flu A angiten in the sample may be below the detection limit of the test. Performed By: #### I NFLUAB #### [facility] [address] [place] [address] Dr. Hilario Wang [facility] SEE BELOW Normal [facility] Comment on above: Result Comment: Nega tive for Flu B protein antigen. Infection due to Flu B cannot be ruled out. Flu B antigen in the sample may be below the detection limit of the test. Performed By: #### I NFLUAB #### [facility] [address] [place] [address] Dr. Hilario Wang INFLUENZA A AG Negative Normal NEGATIVE SEE COMMENT [facility] Comment on above: Performed By: #### I NFLUAB #### [facility] [address] [place] [address] Dr. Hilario Wang INFLUENZA B AG Negative Normal NEGATIVE SEE COMMENT [facility] Comment on above: Performed By: #### I NFLUAB #### [facility] [address] [place] [address] Dr. Hilario Wang INTERNAL CONTROLS Within Normal Limits Normal Wi thin Normal Limits [facility] Comment on above: Performed By: #### I NFLUAB #### [facility] [address] [place] [address] Dr. Hilario Wang CBC AUTO DIFFon 07-28-2022 BASO # 0.0 103/ul Normal 0.0-0.1 [facility] Comment on above: Performed By: #### C BC #### [facility] [address] [place] [address] Dr. Hilario Wang Basophils/100 WBC (Bld) 0.4 % Normal 0.2-2.0 [facility] Comment on above: Performed By: #### C BC #### [facility] [address] [place] [address] Dr. Hilario Wang EO # 0.1 103/ul Normal 0.0-0.7 [facility] Comment on above: Performed By: #### C BC #### [facility] [address] [place] [address] Dr. Hilario Wang Eosinophils/100 WBC (Bld) 1.0 % Normal 0.9-7.0 [facility] Comment on above: Performed By: #### C BC #### [facility] [address] [place] [address] Dr. Hilario Wang Erythrocyte distribution width (RBC) [Ratio] 12.6 % Normal 11.0-15.0 [facility] Comment on above: Performed By: #### C BC #### [facility] [address] [place] [address] Dr. Hilario Wang Hematocrit (Bld) [Volume fraction] 43.2 % Normal 42.0-54.0 [facility] Comment on above: Performed By: #### C BC #### [facility] [address] [place] [address] Dr. Hilario Wang Hemoglobin (Bld) [Mass/Vol] 14.8 g/dL Normal 14.0-18.0 [facility] Comment on above: Performed By: #### C BC #### [facility] [address] [place] [address] Dr. Hilario Wang IG # 0.02 10e3/ul Normal 0.00-0.03 [facility] Comment on above: Performed By: #### C BC #### [facility] [address] [place] [address] Dr. Hilario Wang IG % 0.4 % Normal 0.0-0.5 [facility] Comment on above: Performed By: #### C BC #### [facility] [address] [place] [address] Dr. Hilario Wang LYMPH # 1.6 103/ul Normal 1.2-3.8 [facility] Comment on above: Performed By: #### C BC #### [facility] [address] [place] [address] Dr. Hilario Wang Lymphocytes/100 WBC (Bld) 30.6 % Normal 20.5-60.0 [facility] Comment on above: Performed By: #### C BC #### [facility] [address] [place] [address] Dr. Hilario Wang MANUAL DIFF REQ NO Normal [facility] Comment on above: Performed By: #### C BC #### [facility] [address] [place] [address] Dr. Hilario Wang MCH (RBC) [Entitic mass] 30.4 pg Normal 25.9-34.0 [facility] Comment on above: Performed By: #### C BC #### [facility] [address] [place] [address] Dr. Hilario Wang MCHC (RBC) [Mass/Vol] 34.3 g/dL Normal 29.9-35.2 [facility] Comment on above: Performed By: #### C BC #### [facility] [address] [place] [address] Dr. Hilario Wang MCV (RBC) [Entitic vol] 88.7 fL Normal 80.0-94.0 [facility] Comment on above: Performed By: #### C BC #### [facility] [address] [place] [address] Dr. Hilario Wang MONO # 0.5 103/ul Normal 0.3-0.8 [facility] Comment on above: Performed By: #### C BC #### [facility] [address] [place] [address] Dr. Hilario Wang Monocytes/100 WBC (Bld) 9.4 % Normal 1.7-12.0 [facility] Comment on above: Performed By: #### C BC #### [facility] [address] [place] [address] Dr. Hilario Wang NEUT # 3.0 103/ul Normal 1.4-6.5 [facility] Comment on above: Performed By: #### C BC #### [facility] [address] [place] [address] Dr. Hilario Wang Neutrophils/100 WBC (Bld) 58.2 % Normal 43.0-75.0 [facility] Comment on above: Performed By: #### C BC #### [facility] [address] [place] [address] Dr. Hilario Wang Platelet mean volume (Bld) [Entitic vol] 10.4 fL Normal 9.5-13.5 [facility] Comment on above: Performed By: #### C BC #### [facility] [address] [address] [address] Hilario Wang PLT 191 103/ul Normal 150-450 [facility] Comment on above: Performed By: #### C BC #### [facility] [address] [address] [address] Hilario Wang RBC 4.87 106/ul Normal 4.70-6.10 [facility] Comment on above: Performed By: #### C BC #### [facility] [address] [place] [address] Dr. Hilario Wang WBC 5.1 103/ul Normal 4.0-11.0 [facility] Comment on above: Performed By: #### C BC #### [facility] [address] [place] [address] Dr. Hilario Wang GLYCOHEMOGLOBIN A1Con 2021 ADA RECOMMENDATION SEE BELOW Normal [facility] Comment on above: Result Comment: ADA RECOMMENDED LIMIT 4.0 - 6.0 ADA THERAPEUTIC TARGET < 7.0 ACTION SUGGESTED > 7.0 Performed By: #### A 1C #### [facility] [address] [place] [address] Dr. Hilario aWng Glucose [Mass/Vol] 146 mg/dL Normal [facility] Comment on above: Performed By: #### A 1C #### [facility] [address] [place] [address] Dr. Hilario Wang HbA1c (Bld) [Mass fraction] 6.7 % Critically high 4.5-6.2 [facility] Comment on above: Performed By: #### A 1C #### [facility] [address] [place] [address] Dr. Hilario Wang LIPID PROFILEon 07-28-2022 CHOL-HDL RATIO NORM SEE BELOW Normal [facility] Comment on above: Result Comment: 3.3 - 4.4 LOW RISK 4.4 - 7.1 AVERAGE RISK 7.1 - 11.0 MODERATE RISK >11.0 HIGH RISK Performed By: #### L IPID, CMP #### [facility] [address] [place] [address] Dr. Hilario Wang Cholesterol [Mass/Vol] 121 mg/dL Normal <=200 [facility] Comment on above: Performed By: #### L IPID, CMP #### [facility] [address] [address] [address] Hilario Wang Cholesterol in HDL [Mass/Vol] 29 mg/dL Critically low 40-60 [facility] Comment on above: Performed By: #### L IPID, CMP #### [facility] [address] [address] [address] Hilario Wang Cholesterol in LDL [Mass/Vol] 34.4 mg/dL Normal [facility] Comment on above: Performed By: #### L IPID, CMP #### [facility] [address] [address] [address] Hilario Wang Cholesterol.total/Chol esterol in HDL [Mass ratio] 4.2 {ratio} Normal [facility] Comment on above: Performed By: #### L IPID, CMP #### [facility] [address] [address] [address] Hilario Wang HDL NORMAL > or = 60 mg/dl - LO W CARDIOVASCULAR RISK <40 mg/dl - HIGH CARDIOVASCULAR RISK Normal [facility] Comment on above: Performed By: #### L IPID, CMP #### [facility] [address] [address] [address] Hilario Wang LDL CALC NORMAL SEE BELOW Normal [facility] Comment on above: Result Comment: <100 mg/dl OPTIMAL 100 - 129 mg/dl NEAR OR ABOVE OPTIMAL 130 - 159 mg/dl BORDERLINE HIGH 160 - 189 mg/dl HIGH >190 mg/dl VERY HIGH Performed By: #### L IPID, CMP #### [facility] [address] [address] [address] Hilario Wang Triglyceride [Mass/Vol] 288 mg/dL Critically high <=150 [facility] Comment on above: Performed By: #### L IPID, CMP #### [facility] [address] [address] [address] Hilario Wang VLDL CALC 57.6 mg/dL Normal [facility] Comment on above: Performed By: #### L IPID, CMP #### [facility] [address] [address] [address] Hilario Wang PROF 14(COMP METB)on 022 Albumin [Mass/Vol] 3.7 g/dL Normal 3.4-5.0 [facility] Comment on above: Performed By: #### L IPID, CMP #### [facility] [address] [address] [address] Hilario Wang Albumin/Globulin [Mass ratio] 1.2 {ratio} Normal [facility] Comment on above: Performed By: #### L IPID, CMP #### [facility] [address] [place] [address] Dr. Hilario Wang ALP [Catalytic activity/Vol] 104 U/L Normal 46-116 [facility] Comment on above: Performed By: #### L IPID, CMP #### [facility] [address] [place] [address] Dr. Hilario Wang ALT [Catalytic activity/Vol] 132 U/L Critically high 16-63 [facility] Comment on above: Performed By: #### L IPID, CMP #### [facility] [address] [place] [address] Dr. Hilario Wang Anion gap [Moles/Vol] 11.1 mmol/L Normal [facility] Comment on above: Performed By: #### L IPID, CMP #### [facility] [address] [place] [address] Dr. Hilario Wang AST [Catalytic activity/Vol] 46 U/L Critically high 15-37 [facility] Comment on above: Performed By: #### L IPID, CMP #### [facility] [address] [place] [address] Dr. Hilario Wang Bilirubin [Mass/Vol] 0.4 mg/dL Normal 0.2-1.0 [facility] Comment on above: Performed By: #### L IPID, CMP #### [facility] [address] [place] [address] Dr. Hilario Wang Calcium [Mass/Vol] 8.8 mg/dL Normal 8.5-10.1 [facility] Comment on above: Performed By: #### L IPID, CMP #### [facility] [address] [place] [address] Dr. Hilario Wang Chloride [Moles/Vol] 103 mmol/L Normal 98-107 [facility] Comment on above: Performed By: #### L IPID, CMP #### [facility] [address] [place] [address] Dr. Hilario Wang CO2 [Moles/Vol] 30.8 mmol/L Normal 21.0-32.0 [facility] Comment on above: Performed By: #### L IPID, CMP #### [facility] [address] [place] [address] Dr. Hilario Wang Creatinine [Mass/Vol] 1.17 mg/dL Normal 0.70-1.30 [facility] Comment on above: Performed By: #### L IPID, CMP #### [facility] [address] [place] [address] Dr. Hilario Wang EGFR-AF KYRGYZ >60 Normal >=60 [facility] Comment on above: Performed By: #### L IPID, CMP #### [facility] [address] [place] [address] Dr. Hilario Wang EGFR-NON AF KYRGYZ >60 Normal >=60 [facility] Comment on above: Performed By: #### L IPID, CMP #### [facility] [address] [place] [address] Dr. Hilario Wang Globulin (S) [Mass/Vol] 3.2 g/dL Normal [facility] Comment on above: Performed By: #### L IPID, CMP #### [facility] [address] [place] [address] Dr. Hilario Wang Glucose [Mass/Vol] 136 mg/dL Critically high 74-106 [facility] Comment on above: Performed By: #### L IPID, CMP #### [facility] [address] [place] [address] Dr. Hilario Wang Potassium [Moles/Vol] 3.9 mmol/L Normal 3.5-5.1 [facility] Comment on above: Performed By: #### L IPID, CMP #### [facility] [address] [place] [address] Dr. Hilario Wang Protein [Mass/Vol] 6.9 g/dL Normal 6.4-8.2 [facility] Comment on above: Performed By: #### L IPID, CMP #### [facility] [address] [place] [address] Dr. Hilario Wang Sodium [Moles/Vol] 141 mmol/L Normal 136-145 [facility] Comment on above: Performed By: #### L IPID, CMP #### [facility] [address] [place] [address] Dr. Hilario Wang Urea nitrogen [Mass/Vol] 20.0 mg/dL Critically high 7.0-18.0 [facility] Comment on above: Performed By: #### L IPID, CMP #### [facility] [address] [place] [address] Dr. Hilario Wang Urea nitrogen/Creatinine [Mass ratio] 17.1 mg/mg Normal [facility] Comment on above: Performed By: #### L IPID, CMP #### [facility] [address] [place] [address] Dr. Hilario Wang Physician Referralon 022 Physician Referral [phone] [phone] [id number] D:127 Normal [facility] Covid-19 PCR (CVDTBH)on 02-11 SARS-CoV-2 (COVID-19) RNA PATSY+probe Ql (Unsp spec) Detected Critically abnormal NOT DETECTED [facility] Comment on above: Result Comment: This test is not yet approved or cleared by the [place] FDA. When there are no FDA-approved or cleared tests available, and other criteria are met, FDA can make tests available under an emergency access mechanism called an Emergency Use Authorization (EUA). The EUA for this test is supported by the [place] of Health and Human Service's declaration that circumstances exist to justify the emergency use of in vitro diagnostics for the detection and/or diagnosis of the virus that causes COVID-19. This EUA will remain in effect for the duration of the COVID-19 declaration justifying emergency of IVDs, unless it is terminated or revoked by the FDA (after which the test may no longer be used). Performed By: #### C VDTB #### [facility] [address] [place], [place] [address] Dr. Hilario Wang Glucose Poct Glucometerson 0 03-15-2021 Glucose [Mass/Vol] 107 mg/dL Normal [facility] Comment on above: Result Comment: [facility] Glucose Reference Range is dependent on time and content of last meal. Glucose of more than 200 mg/dL in a nonstressed, ambulatory subject supports the diagnosis of Diabetes Mellitus. PERFORMED BY: [place] [address] PATHOLOGIST SITE ADMINISTRATOR EDILIA MEJIA M.D. Performed By: #### G LUMANUEL #### Point of Care testing , Complete Blood Count Auto Di ffon 02-28-2021 Basophils (Bld) [#/Vol] 0.1 10*3/uL Normal 0.0-0.2 [facility] Comment on above: Result Comment: PERF ORMED BY: [place] [address] PATHOLOGIST SITE ADMINISTRATOR EDILIA MEJIA M.D. Performed By: #### C BC, CMP #### [facility] [address] [place] [address] [place] Basophils/100 WBC (Bld) 1.0 % Normal . [facility] Comment on above: Performed By: #### C BC, CMP #### [facility] [address] [place] [address] [place] Eosinophils (Bld) [#/Vol] 0.2 10*3/uL Normal 0.0-0.45 [facility] Comment on above: Performed By: #### C BC, CMP #### [facility] [address] [place] [address] [place] Eosinophils/100 WBC (Bld) 3.0 % Normal . [facility] Comment on above: Performed By: #### C BC, CMP #### [facility] [address] Erythrocyte distribution width (RBC) [Ratio] 13.6 % Normal 12.0-14.8 [facility] Comment on above: Performed By: #### C BC, CMP #### [facility] [address] Hematocrit (Bld) [Volume fraction] 42.7 % Normal 38.8-50.0 [facility] Comment on above: Performed By: #### C BC, CMP #### [facility] [address] Hemoglobin (Bld) [Mass/Vol] 14.8 g/dL Normal 13.0-17.0 [facility] Comment on above: Performed By: #### C BC, CMP #### [facility] [address] Lymphocytes (Bld) [#/Vol] 2.0 10*3/uL Normal 1.00-4.8 [facility] Comment on above: Performed By: #### C BC, CMP #### [facility] [address] Lymphocytes/100 WBC (Bld) 32.2 % Normal . [facility] Comment on above: Performed By: #### C BC, CMP #### [facility] [address] [place] [address] [place] MCH (RBC) [Entitic mass] 32.1 pg Normal 27.5-35.2 [facility] Comment on above: Performed By: #### C BC, CMP #### [facility] [address] MCV (RBC) [Entitic vol] 93.0 fL Normal 83.5-101 [facility] Comment on above: Performed By: #### C BC, CMP #### [facility] [address] Mean Corpuscular HGB Conc 34.6 g/dL Normal 32.5-35.6 [facility] Comment on above: Performed By: #### C BC, CMP #### [facility] [address] [place] [address] [place] Monocytes (Bld) [#/Vol] 0.5 10*3/uL Normal 0.0-0.8 [facility] Comment on above: Performed By: #### C BC, CMP #### [facility] [address] [place] [address] [place] Monocytes/100 WBC (Bld) 7.8 % Normal . [facility] Comment on above: Performed By: #### C BC, CMP #### [facility] [address] [place] [address] [place] Neutrophils (Bld) [#/Vol] 3.4 10*3/uL Normal 1.8-7.7 [facility] Comment on above: Performed By: #### C BC, CMP #### [facility] [address] [place] [id number] [place] Neutrophils/100 WBC (Bld) 56.0 % Normal . [facility] Comment on above: Performed By: #### C BC, CMP #### [facility] [address] [id number] [place] Nucleated RBC/100 WBC (Bld) [Ratio] 0.1 % Normal 0-0.5 [facility] Comment on above: Performed By: #### C BC, CMP #### [facility] [address] [id number] [place] Platelet mean volume (Bld) [Entitic vol] 9.5 fL Normal 6.6-10.1 [facility] Comment on above: Performed By: #### C BC, CMP #### [facility] [address] [place] [address] [place] Platelets (Bld) [#/Vol] 185 10*3/uL Normal 150-450 [facility] Comment on above: Performed By: #### C BC, CMP #### [facility] [address] [place] [address] [place] RBC (Bld) [#/Vol] 4.60 10*6/uL Normal 3.90-5.60 [facility] Comment on above: Performed By: #### C BC, CMP #### [facility] [address] WBC (Bld) [#/Vol] 6.1 10*3/uL Normal 4.5-11.0 [facility] Comment on above: Performed By: #### C BC, CMP #### [address] Comprehensive Metabolic Pane ar 02-28-2021 Albumin [Mass/Vol] 4.2 g/dL Normal 3.2-5.5 [facility] Comment on above: Performed By: #### C BC, CMP #### [address] Albumin/Globulin [Mass ratio] 1.8 {ratio} Normal [facility] Comment on above: Performed By: #### C BC, CMP #### [address] ALP [Catalytic activity/Vol] 70 U/L Normal 32-92 [facility] Comment on above: Result Comment: PERF ORMED BY: [place] [address] PATHOLOGIST SITE ADMINISTRATOR EDILIA MEJIA M.D. Performed By: #### C BC, CMP #### [address] ALT [Catalytic activity/Vol] 63 U/L High 10-60 [facility] Comment on above: Performed By: #### C BC, CMP #### [address] AST [Catalytic activity/Vol] 31 U/L Normal 10-42 [facility] Comment on above: Performed By: #### C BC, CMP #### [address] Bilirubin [Mass/Vol] 0.6 mg/dL Normal 0.3-1.2 [facility] Comment on above: Performed By: #### C BC, CMP #### [address] Calcium [Mass/Vol] 9.4 mg/dL Normal 8.2-10.2 [facility] Comment on above: Performed By: #### C BC, CMP #### [facility] [address] Chloride [Moles/Vol] 103 mmol/L Normal 95-114 [facility] Comment on above: Performed By: #### C BC, CMP #### [facility] [address] CO2 [Moles/Vol] 26.5 mmol/L Normal 22.0-30.0 [facility] Comment on above: Performed By: #### C BC, CMP #### [facility] [address] Creatinine [Mass/Vol] 1.43 mg/dL High 0.64-1.[address] [facility] Comment on above: Performed By: #### C BC, CMP #### [facility] [address] Estimated GFR ( Zaida > 60 [facility] Comment on above: Result Comment: GFR estimated reference range: According to KDOQI guidelines, <60 ml/min/1.73m2 is sufficient to diagnose a patient with chronic kidney disease. Performed By: #### C BC, CMP #### [address] Estimated GFR (Non- Am 53 [facility] Comment on above: Performed By: #### C BC, CMP #### [facility] [address] [place] [address] [place] Globulin (S) [Mass/Vol] 2.3 g/dL [facility] Comment on above: Performed By: #### C BC, CMP #### [address] Glucose [Mass/Vol] 99 mg/dL Normal 70-100 [facility] Comment on above: Result Comment: [place] Glucose Reference Range is dependent on time and content of last meal. Glucose of more than 200 mg/dL in a nonstressed, ambulatory subject supports the diagnosis of Diabetes Mellitus. ADA recommended reference range Performed By: #### C BC, CMP #### [facility] [address] Potassium [Moles/Vol] 4.2 mmol/L Normal 3.5-5.[address] [facility] Comment on above: Performed By: #### C BC, CMP #### [facility] [address] [place] [id number] [facility] Protein [Mass/Vol] 6.5 g/dL Normal 6.1-7.9 [facility] Comment on above: Performed By: #### C BC, CMP #### [facility] [address] Sodium [Moles/Vol] 140 mmol/L Normal 136-146 [facility] Comment on above: Performed By: #### C BC, CMP #### [facility] [address] [place] [id number] [facility] Urea nitrogen [Mass/Vol] 22 mg/dL Normal 9-23 [facility] Comment on above: Performed By: #### C BC, CMP #### [facility] [address] [place] [id number] [facility] ECG 12 lead ECGon 02-28-2021 ECG 12 lead ECG [facility] [address] [place] [address] Electrocardiograph Report Signed Patient: Nanette Choi MR#: [id number] : 1975 Acct:[id number] Age/Sex: 46 / M ADM Date: 02/28/21 Loc: Room: Type: [facility] Attending Dr: Jayeln Santiaog DO Ordering Provider: Jaylen Santiago DO Date of Service: 02/28/21 ECG/ECG 12 lead ECG: RIGHT KNEE ARTHROSCOPY Copies to: Test Reason : Blood Pressure : / mmHG Vent. Rate : 056 BPM Atrial Rate : 056 BPM P-R Int : 172 ms QRS Dur : 098 ms QT Int : 400 ms P-R-T Axes : 025 -02 044 degrees QTc Int : 386 ms Sinus bradycardia Incomplete right bundle branch block Nonspecific T wave abnormality Abnormal ECG No previous ECGs available Confirmed by DELFINA WYATT MD ([id number]) on 03/01/2021 7:14:26 AM Referred By: CHARISSE Electronically Signed By:DELFINA WYATT MD Transcribed By: ANGELINE Dictated By: Delfina Wyatt MD 02/28/21 0700 Signed By: 03/01/21 0714 [facility] XR knee BI 3V - NOT FOR ER U Santosh 01-31-2021 XR knee BI 3V - NOT FOR ER USE [facility] [address] [place] [address] XRay Report Signed Patient: Nanette Choi MR#: [id number] : 1975 Acct:[id number] Age/Sex: 46 / M ADM Date: 01/31/21 Loc: [facility] Room: Type: [facility] Attending Dr: Jaylen Santiago DO Ordering Provider: Jaylen Santiago DO Date of Service: 01/31/21 XR/XR knee BI 3V - NOT FOR ER USE: Pain in right knee;Pain in left knee Copies to: Jaylen Santiago DO 3 views RIGHT knee plain film COMPARISON:None HISTORY:Bilateral knee pain for years. No fracture, dislocation or focal soft tissue abnormality seen. No significant degeneration. XR/XR knee BI 3V - NOT FOR ER USE IMPRESSION:Unremarkable exam Impression dictated by: Jl Rondon M.D.01/31/2021 10:21 AM Dictation Location: [place] [address] Transcribed By: [facility] 01/31/21 1021 Dictated By: Jl Rondon DO 01/31/21 1018 Signed By: 01/31/21 1021 [facility] ANAon 09-10-2017 WANDA SCREEN <1:40 Normal <1:40,1:40 [facility] [place] [facility] Comment on above: Performed By: #### 1 0196 ####[address] [place] [address], [facility] C REACTIVE PROTEINon 018 C reactive protein (CRP) 5.3 mg/L Normal 0.0-7.0 [facility] Comment on above: Performed By: #### 1 0204, [id number] ####[facility] CYCLIC CITRULLINATED PEPTIDE [place] [id number] 09-10-2017 CYCLIC CIT PEP 4 Units Normal 0-19 [facility] Comment on above: Result Comment: INTE RPRETIVE INFORMATION: Cyclic Citrullinated PeptideAntibody, IgG 19 Units or less ................... Negative 20-39 Units ........................ Weak Positive 40-59 Units ........................ Moderate Positive 60 Units or greater ................ Strong PositiveAnti-cyclic citrullinated peptide (anti-CCP), IgGantibodies are present in about 69-83 percent of patientswith rheumatoid arthritis (RA) and have specificities of93-95 percent. These autoantibodies may be present in thepreclinical phase of disease, are associated with future RAdevelopment, and may predict radiographic jointdestruction. Patients with weak positive results should bemonitored and testing repeated.Performed by [place],[address] [place] [id number] pqd.[employer], Jared Covarrubias MD - Lab. Director HLA B27on 09-10-2017 COMMENTS Negative Normal [facility] Comment on above: Order Comment: Some of the reagents used for clinical histocompatibility testing havebeen approved by the FDA for research only. Through [facility] perform 'high complexity testing' and through our stringentquality control program, these reagents have been rigorously tested andvalidated for clinical use. Typing performed may include components ofSSOP and/or SSP testing in order to obtain a valid HLA typing. Performed By: #### 3 0759 ####[facility] [place] [address], [facility] SIGNED BY Ditch Inspector, Transpla nt Immunology Normal [facility] [place] [facility] Comment on above: Order Comment: Some of the reagents used for clinical histocompatibility testing havebeen approved by the FDA for research only. Through our certification byCLIA to perform 'high complexity testing' and through our stringentquality control program, these reagents have been rigorously tested andvalidated for clinical use. Typing performed may include components ofSSOP and/or SSP testing in order to obtain a valid HLA typing. Performed By: #### 3 0759 ####[facility] [place] [address] KNEE RIGHT 4 Son 8 KNEE RIGHT 4 S [facility] [place] [facility] Sweimtati[address] [place] [address] =====Patient Name: NANETTE CHOI : 1975Sex: MAge: Race: OtherMRN: [id number]. Location: 84Patient Status: OVisit #: [id number] Date: 09/10/2017 9:15:00 AMCompleted Date: 09/10/2017 09:17 AMRequesting Provider: YUNG DOVE Attending Provider: YUNG DOVE Report Copy To: Signs & Symptoms: M25.561 Pain in right knee V39Pbupflw: AthenaComments: , , , Ordering Provider - YUNG DOVE MD , Rendering Provider - YUNG DOVE MD , Exam: KNEE RIGHT 4 VWSAccession #: [id number] KNEE RIGHT 4 VWS 09/10/2017 9:17 AM EST SIGNS AND SYMPTOMS: M25.561 Pain in right knee I10 TECHNOLOGIST COMMENTS: pt states medial pain in rt knee chronic QUESTION FOR THE RADIOLOGIST: , , , Ordering Stephenie DOVE MD , Rendering Stephenie DOVE MD , PROTOCOL: AP,Lateral,Tunnel and Tangential views were obtained. 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 No acute abnormality2. Chronic changes as above Electronically signed by:Emmanuel Leach. Transcribed by: [email or web address], User Resident: Electronically Signed by: EMMANUEL LEACH @ 09/10/2017 11:53 AM Normal [facility] [place] [facility] Comment on above: Order Comment: , , = ========= , Ordering Stephenie DOVE MD , Rendering Stephenie DOVE MD , RHEUMATOID FACTOR SERUMon RA <20 Normal 0-20 [facility] [place] [facility] Comment on above: Performed By: #### 1 0204, [id number] ####[facility] [facility] [place] [address], [facility] SEDIMENTATION RATEon 018 SED RATE 4 mm/hr Normal 0-10 [facility] [place] [facility] Comment on above: Performed By: #### 5 [id number] ####[facility] [facility] [place] [address], [facility] Vital Signs Date Time Vital Sign Value Performing Clinician Davon tian 09-17-2022 13:39-0500 Diastolic blood pressure 63 mm[Hg] DO CAROLYN WILDER Work Phone: [place] 09-17-2022 13:39-0500 Heart rate 69 /min DO CAROLYN WILDER Work Phone: [place] 09-17-2022 13:39-0500 Respiratory rate 19 /min DO CAROLYN WILDER Work Phone: [place] 09-17-2022 13:39-0500 SaO2% (BldA) [Mass fraction] 99 % DO CAROLYN WILDER Work Phone: [place] 09-17-2022 13:39-0500 Systolic blood pressure 121 mm[Hg] DO CAROLYN WILDER Work Phone: [place] 09-17-2022 11:47-0500 Body height 175.26 cm DO CAROLYN WILDER Work Phone: [place] 09-17-2022 11:47-0500 Body mass index (BMI) [Ratio] 45 kg/m2 DO CAROLYN WILDER Work Phone: [place] 09-17-2022 11:47-0500 Body temperature 98.7 [degF] DO CAROLYN WILDER Work Phone: [place] 09-17-2022 11:47-0500 Body weight 138.34 kg DO CAROLYN WILDER Work Phone: [place] Encounters Encounter Date Encounter Type Care Provider Facility Start: 11-30-2024 End: 11-30-2024 Emergency department patient visit [facility] Start: 01-23-2024 End: 01-23-2024 ambulatory MOHSEN LALA Not Available Start: 10-04-2023 ambulatory KALEN [facility] Start: 09-26-2023 ambulatory [facility] Start: 09-17-2023 ambulatory [facility] Start: 08-10-2023 ambulatory [facility] Start: 08-02-2023 ambulatory [facility] Start: 07-26-2023 ambulatory [facility] Start: 06-15-2023 ambulatory [facility] Start: 05-29-2023 ambulatory J[facility] Start: 05-24-2023 ambulatory JESSICA [facility] Start: 05-17-2023 ambulatory JESSICA [facility] Start: 05-15-2023 ambulatory SNEHA ROBBINS [facility] [place] [facility] Start: 05-10-2023 ambulatory [facility]: [facility]: 04-20-2023 ambulatory [facility] Start: 04-11-2023 ambulatory JESSICA [facility] Start: 02-15-2023 End: 02-16-2023 ambulatory JESSICA [facility] Start: 09-17-2022 End: 09-17-2022 Emergency department patient visit CAROLYN WILDER Facility:[facility] Start: 09-17-2022 [facility] Start: 09-17-2022 End: 09-17-2022 Emergency department patient visit DO CAROLYN WILDER Work Phone: [place] Start: 07-31-2022 End: 07-31-2022 ambulatory GAGANDEEP MIX Facility:[facility] Start: 07-28-2022 End: 07-29-2022 ambulatory GAGANDEEP MIX Facility:[facility] Start: 05-19-2022 ambulatory Facility:[facility] Start: 03-20-2022 ambulatory GAGANDEEP DOMINGUEZ Facility: [facility] Start: 03-02-2022 End: 03-02-2022 ambulatory GAGANDEEP DOMINGUEZ Facility:[facility] Start: 09-16-2021 ambulatory GAGANDEEP DOMINGUEZ Facility: [facility] Start: 09-10-2017 End: 09-11-2017 Ambulatory YUNG DOVE Facility:[facility] Start: 09-05-2017 End: 09-06-2017 Ambulatory DEFAULT PHYSICIAN Facility:[facility] Procedures Date Procedure Procedure Detail Performing Clinician Start: 09-17-2022 Plain chest X-ray DO DANETTE WILDER Work Phone: Plan of Treatment Date Care Activity Detail Author Patient referral [facility] Work Phone: Payers Date Payer Category Payer Unknown [id number] 2022 [employer] [id number] 2022 Self-pay 1975 Unknown [id number] 2.16.84 [id number] 1975 Unknown [id number] 2.16.84 [id number] 1975 Unknown [id number] 2.16.84 [id number] 1975 Unknown [id number] 2.16.84 [id number] 1975 Unknown [id number] 2.16.84 [id number] 1975 Unknown [id number] 1975 Unknown [id number] 1959 Self-pay [id number] 1959 Unknown [id number] [facility] [id number] Unknown Unknown [id number] Social History Date Type Detail Facility Start: 09-17-2022 [facility] [place] Start: 09-17-2022 Former Smoker [place] Start: 09-17-2022 Yes [facility] Start: 1975 Sex Assigned At Male [facility] Mental Status Date Assessment Result Facility 09-17-2022 Cognitive function Person;Place;Time [facility] Work Phone: Clinical Notes 02-15-2023 to 11-30-2024 Note Date & Type Note Facility 11-30-2024 Note XR SPINE LUMBAR 2 OR 3 VWS Procedure: Lumbo-sacral spine radiographs performed Number of views:3 History:Back pain Comparison:01/30/2017 Findings: There is no fracture, malalignment, or destructive lesion. Vertebral body height and disc space height are fairly well-maintained. There is posterior element degenerative change from L4 to S1. Impression: No acute findings. Finalized by Niko Jorgensen MD on 11/30/2024 8:34 PM [facility] 10-04-2023 Note Physical Therapy Physical Therapy Treatment Patient Name: Nanette Choi Total Visit Count: 15 Today's Date: 10/04/2023 Time In: 4:04 pm Time Out: 4:55 pm Intervention Time Breakdown: 4:04 - 4:55 pm: therapeutic exercise Total Billed Minutes: 51 Cumulative Minutes: 51 Subjective: Patient notes increased LBP due to work today. Notes B knee pain has also been more present. States work hours have decreased some but is still working 40+ hrs/wk. Objective: Exercise Intensity Sets Reps Comments Upright bike Level 4 10 mins [x] bridge with TB + hip abd green TB 2 10 [] HS stretch-seated 20'' 1 3 B[] hip flexor stretch- stairs 20'' 1 3 B[] hip hike 3# 2 20 ea [] hip abduction standing Green TB 1 12 [x] treadmill 1.0 mph 5 min and 1.5 and 5 min, 0 grade retro[] S/L clamshell Grn TB 3 10 B[] monster walk green TB 1 3 laps //[x] figure 4 stretch-seated 15'' 1 3 B[x] standing [address] hip green TB 2 12 ea B[x] TG SL squats level 10 2 15 B[] TG squats +Ball squeeze Level 10; 3'' hold 2 10 B[] step ups w/march (fwd, lateral) 6 step 2 15 ea B[x] resisted side stepping green TB 1 2 laps //[x] gastroc stretch at stairs 20'' hold 1 3 B[] prone quad stretch 30'' 1 1 B[] bridge + hip add red ball 2 10 [] lateral heel tap 4 inch UE support 2 10 ea B [] BW squats 2 10 [] PB wall squats Green PB 3 10 [] bridge with feet on SB 3 hold 2 10 [x] LTR 3 hold 1 10 [x] PB hamstring curl 1 10 [x] supine hip add iso with pillows 10 hold 1 10 [] Supine hip abd iso with belt 10 hold 1 10 bridge 2 10 [] A frames/Rocking horse 1 20 ea Hamstring stretch at stairs 15 hold 1 3 B[x] Treatment Comments: Initiated session on upright bike to improve LE endurance, soft tissue pliability and joint mobility. Increased sets with forward step up march and added lateral to improve LE extensor strength and SLS stability. Added PB hamstring curl to improve knee flexor strength. Home Exercise Program Encouraged HEP to maximize PT outcome. Assessment/Plan: Good tolerance to therapeutic exercise interventions. Increased lateral hip fatigue with step up patterns and bands. Will continue to progress per POC. Therapy Goals Active PT Goals Start: 04/12/23 STG - Pt will improve B hip and knee strength to 5/5 to demonstrate improved knee mechanics to decrease pain with deep squat Start: 04/12/23 Expected End: 10/12/23 STG - pt will improve B HS length to 10 degrees at 90/90 and improve rec fem length with - Magaly's test B to decrease biomechanical stress at knee to decrease pain in deep squat. Start: 04/12/23 Expected End: 10/12/23 Magaly's test equal will discontinue this goal as he is symmetrical LTG - Pt will improve LEFS score to 70 to demonstrate improved BLE function and return to exercise such as running and or weightlifting Start: 04/12/23 Expected End: 10/12/23 LTG - Pt will decrease forward step down score B to 1/5 to demonstrate improved hip to knee mechanics in single leg squat to reduce patellar femoral pressure and reduce pain in running and squatting Start: 04/12/23 Expected End: 10/12/23 LTG - Pt to perform 14 reps during 30'' STS to demo improvements in functional LE strength and improve work tolerance Start: 09/18/23 Expected End: 11/09/23 Resolved There are no resolved problems. [facility] [place] [facility] 09-26-2023 Note Physical Therapy Physical Therapy Treatment Patient Name: Nanette Choi Total Visit Count: 14 Today's Date: 09/26/2023 Time In: 4:25 pm Time Out: 5:22 pm Intervention Time Breakdown: Therapeutic exercise 4:25 pm-5:12 pm CP B knees in supine 5:12 pm-5: 22 pm Total Billed Minutes: 57 Cumulative Minutes: 57 Student ENGINEERING TEACHER, Padmini Sanabria, was involved in the care of this patient with direct supervision of the cosigning therapist, who was present and actively involved in the patient's care. Subjective: Pt states B knee pain prior to treatment session. Pt notes increased LBP today. Pt states he was sitting a lot and only got up to walk approx 3-4 times for 3 minutes. Objective: Exercise Intensity Sets Reps Comments Upright bike Level 4 10 mins [x] bridge with TB + hip abd green TB 2 10 [] HS stretch-seated 20'' 1 3 B[] hip flexor stretch- stairs 20'' 1 3 B[] hip hike 3# 2 20 ea [] hip abduction standing Green TB 1 12 [x] treadmill 1.0 mph 5 min and 1.5 and 5 min, 0 grade retro[] S/L clamshell Grn TB 3 10 B[] monster walk green TB 1 3 laps //[x] figure 4 stretch-seated 15'' 1 3 B[x] standing [address] hip green TB 2 12 ea B[x] TG SL squats level 10 2 15 B[] TG squats +Ball squeeze Level 10; 3'' hold 2 10 B[] step ups /october 16 step 1 20 ea B[x] resisted side stepping green TB 1 3 laps //[x] gastroc stretch at stairs 20'' hold 1 3 B[x] prone quad stretch 30'' 1 1 B[] bridge + hip add red ball 2 10 [] lateral heel tap 4 inch UE support 2 10 ea B [] BW squats 2 10 [] PB wall squats Green PB 3 10 [] bridge with feet on SB 3 hold 2 12 [x] LTR 3 hold 1 10 [x] prone prop 3 min [] supine hip add iso with pillows 10 hold 1 10 [] Supine hip abd iso with belt 10 hold 1 10 bridge 2 10 [] A frames/Rocking horse 1 20 ea Hamstring stretch at stairs 15 hold 1 3 B[x] Treatment Comments: Initiated treatment session on upright bike to increase blood flow and circulation to B LE. Continued with stretching to increase tissue extensibility and prepare muscles for strengthening. Increased reps for hip 3 way to challenge hip girdle strength. Pt cued to engage core musculature. Decreased reps for hip abd d/t increased hip pain. Added 3 second hold to bridge on SB to challenge core and glut strength and endurance. Assessment/Plan: Pt demonstrates appropriate muscle fatigue with progression of exercise to this date. Pt c/o anterior B knee pain - addressed with CP application. Continue to progress as able to prepare pt for return to gym workouts. Therapy Goals Active PT Goals Start: 04/12/23 STG - Pt will improve B hip and knee strength to 5/5 to demonstrate improved knee mechanics to decrease pain with deep squat Start: 04/12/23 Expected End: 10/12/23 STG - pt will improve B HS length to 10 degrees at 90/90 and improve rec fem length with - Magaly's test B to decrease biomechanical stress at knee to decrease pain in deep squat. Start: 04/12/23 Expected End: 10/12/23 Magaly's test equal will discontinue this goal as he is symmetrical LTG - Pt will improve LEFS score to 70 to demonstrate improved BLE function and return to exercise such as running and or weightlifting Start: 04/12/23 Expected End: 10/12/23 LTG - Pt will decrease forward step down score B to 1/5 to demonstrate improved hip to knee mechanics in single leg squat to reduce patellar femoral pressure and reduce pain in running and squatting Start: 04/12/23 Expected End: 10/12/23 LTG - Pt to perform 14 reps during 30'' STS to demo improvements in functional LE strength and improve work tolerance Start: 09/18/23 Expected End: 11/09/23 Resolved There are no resolved problems. [facility] [place] [facility] 09-17-2023 Note Physical Therapy Physical Therapy Progress Note Patient Name: Nanette Choi Total Visit Count: 13 Today's Date: 09/17/23 Time In: 4:00pm Time Out: 4:53pm Intervention Time Breakdown: 4:00pm-4:22pm Therapeutic exercise 4:22am-4:32am CP applied to B knees in supine to reduce warmth and inflammation 4:32am-4:42am Manual therapy 4:32am-7:53am Therapeutic exercise Total Billed Minutes: 53 Cumulative Minutes: 53 Subjective: Pt reports to PT after 1 month absence due to his work schedule. He reports his work schedule has slowed down since last visit, but he is still working >40 hours/week and reports his knee and and hip pain is worsening as a result. He was making progress when he was able to attend therapy weekly. He reports warmth in B knees and tightness/pain in posterolateral hips. He has a hard time keeping up with his hep due to fatigue. HE would like to continue PT with the goal of learning how to exercise safely at the gym. Objective: Exercise Intensity Sets Reps Comments Upright bike Level 4 10 mins [x] bridge with TB + hip abd green TB 2 10 [] HS stretch-seated 20'' 1 3 B[x] hip flexor stretch- stairs 20'' 1 3 B[x] hip hike 3# 2 20 ea [] hip abduction standing 3 10 [] treadmill 1.0 mph 5 min and 1.5 and 5 min, 0 grade retro[] S/L clamshell Grn TB 3 10 B[] monster walk green TB ;40' 1 2 laps B [] figure 4 stretch-seated 30' 1 1 B[x] standing 3 way hip green TB 1 20 ea B; two finger support[] TG SL squats level 10 2 15 B[] TG squats +Ball squeeze Level 10; 3'' hold 2 10 B[] step ups w/october 6 step 1 20 ea Contralateral limb october-[] resisted side stepping green TB; 40' 1 2 laps [] gastroc stretch at stairs 20'' 1 3 B[] prone quad stretch 30'' 1 1 B[] bridge + hip add red ball 2 10 [] lateral heel tap 4 inch UE support 2 10 ea B [] BW squats 2 10 [] PB wall squats Green PB 3 10 [] bridge with feet on SB 3 10 [] LTR 3 hold 1 10 [] prone prop 3 min [] supine hip add iso with pillows 10 hold 1 10 [] Supine hip abd iso with belt 10 hold 1 10 bridge 2 10 A frames/Rocking horse 1 20 ea Treatment Comments: Therapeutic exercise: Session initiated on CLEAR bike to increase peripheral blood flow and prepare tissues for stretching manual therapy. Patients goals updated. Manual therapy: IASTM performed with roller to B quadriceps and B piriformis release (passive hip IR/ER) in order to increase tissue extensibility, improve rom, and reduce pain. Outcome Assessments Hip MMT (__/5) Left Right Flexion Extension Abduction Adduction IR 20 25 ER 50 55 90/90 SLR: L 23 deg; R 28 deg Magaly's test: R 105 deg; L 110 deg LEFS: 52 30'' STS: 9 reps Home Exercise Program Continue as directed, include ice and STM with roller Assessment/Plan: Pt reports relief with ice and manual therapy. Pt has demonstrated an improvement in hamstring flexibility, however he demonstrates a reduction in hip IR ROM, a decline in quad length and LEFS score, and a reduction in functional LE strength. Isolated hip strength and FSD test not performed today as likely minimal changes have been made due to non compliance with exercise regime. 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 Therapy Goals Active PT Goals Start: 04/12/23 STG - Pt will improve B hip and knee strength to 5/5 to demonstrate improved knee mechanics to decrease pain with deep squat Start: 04/12/23 Expected End: 10/12/23 STG - pt will improve B HS length to 10 degrees at 90/90 and improve rec fem length with - Magaly's test B to decrease biomechanical stress at knee to decrease pain in deep squat. Start: 04/12/23 Expected End: 10/12/23 Maagly's test equal will discontinue this goal as he is symmetrical LTG - Pt will improve LEFS score to 70 to demonstrate improved BLE function and return to exercise such as running and or weightlifting Start: 04/12/23 Expected End: 10/12/23 LTG - Pt will decrease forward step down score B to 1/5 to demonstrate improved hip to knee mechanics in single leg squat to reduce patellar femoral pressure and reduce pain in running and squatting Start: 04/12/23 Expected End: 10/12/23 LTG - Pt to perform 14 reps during 30'' STS to demo improvements in functional LE strength and improve work tolerance Start: 09/18/23 Expected End: 11/09/23 Resolved There are no resolved problems. [facility] 08-10-2023 Note Physical Therapy Physical Therapy Re-evaluation Patient Name: Nanette Choi Total Visit Count: 12 Today's Date: 08/10/23 Time In: 4:05pm Time Out: 4:45pm Intervention Time Breakdown: 4:05pm-4:20pm; 4:32-4:45pm Therapeutic exercise 4:20pm-4:32pm Manual therapy Total Billed Minutes: 40 Cumulative Minutes: 40 Subjective: Pt reports to PT with continued B posterolateral hip soreness and B anterior knee pain. He has regressed since not being able to be consistent with full exercise program due to increase hours at work (~72 hours). He reports trying to stretch when able and when he does and uses the bike it loosens him up and manages his pain. He was feeling good and pain/function improving at last visit but has since declined. Our goal at last re-check was to transition him to gym based exercise plan, however pt cannot commit to this with his work schedule as it is, he reports it may slow down at the end of the month. Objective: Treatment Comments: Manual therapy: IASTM with roller to B quads, hamstring, gluts in order to reduce muscle soreness in posterolateral hip/thigh muscles and knee pain. Therapeutic exercise: Session initiated on Sci fit bike to increase peripheral blood flow and prepare tissues for stretching and goal assessment. Pt instructed to perform his stretches prior to goal assessment, hamstring, quad, and figure 4. Outcome Assessments 90/90 SLR: L 35 deg; R 42 deg Magaly's test: 125 deg R; 120 deg L LEFS: 60 FSD test R 3/5; L 1/5 Hip MMT (__/5) Left Right Flexion 4 4 Extension 4 4 Abduction 4 5 Adduction 4- 4- IR ER Knee strength MMT (__/5) Left Right Flexion 5 5 Extension 5 5 Home Exercise Program Perform IASTM with roller, ice, heat, stretch, and we discussed purchasing a bike to perform aerobic exercise at home Assessment/Plan: Patient is demonstrating improvements in FSD test (LE muscle coordination), quad length, knee strength and LEFS score since initial eval, but has declined in hip strength, hamstring flexibility, and LEFS score since June's re-evaluation. This is due to decrease in hep compliance and his busy work schedule. Discussed holding therapy for 1 month and pt instructed to manage his symptoms at home with modalities/exercise, then we will re-evaluation 1st week in Sep to assess his symptoms and determine if he can commit to a regular exercise routine to help manage his symptoms chcf and improve his quality of life. Therapy Goals Active PT Goals Start: 04/12/23 STG - Pt will improve B hip and knee strength to 5/5 to demonstrate improved knee mechanics to decrease pain with deep squat Start: 04/12/23 Expected End: 10/12/23 STG - pt will improve B HS length to 10 degrees at 90/90 and improve rec fem length with - Magaly's test B to decrease biomechanical stress at knee to decrease pain in deep squat. Start: 04/12/23 Expected End: 10/12/23 Magaly's test equal will discontinue this goal as he is symmetrical LTG - Pt will improve LEFS score to 70 to demonstrate improved BLE function and return to exercise such as running and or weightlifting Start: 04/12/23 Expected End: 10/12/23 LTG - Pt will decrease forward step down score B to 1/5 to demonstrate improved hip to knee mechanics in single leg squat to reduce patellar femoral pressure and reduce pain in running and squatting Start: 04/12/23 Expected End: 10/12/23 Resolved There are no resolved problems. [facility] 08-02-2023 Note Physical Therapy Physical Therapy Treatment Patient Name: Nanette Choi Total Visit Count: 11 Today's Date: 08/02/2023 Time In: 4:00 PM Time Out: 4:35 pm Intervention Time Breakdown: Therapeutic exercise: 4:00 -4:35 pm Total Billed Minutes: 35 minutes Cumulative Minutes: 35 minutes Subjective: Pt reports over the weekend he stepped wrong and tweaked his back. Pt experienced L LE radicular symptoms with LBP. Pt states these symptoms increase with trunk flexion. Pt notes he came from Chiropractor appt where they made adjustments, used massage, and electrical stimulation. Pt notes this did improve his pain. Pt has worked increased hours which results in him not having time to get out and walk or stretch. Objective: Exercise Intensity Sets Reps Comments Upright bike Level 4 10 mins [] bridge with TB + hip abd green TB 2 10 [] HS stretch-seated ' 1 3 B[x] hip flexor stretch- stairs ' 1 3 B[x] hip hike 3# 2 20 ea [] hip abduction standing 3 10 [] treadmill 1.0 mph 5 min and 1.5 and 5 min, 0 grade retro[] S/L clamshell Grn TB 3 10 B[] monster walk green TB ;40' 1 2 laps B [] figure 4 stretch-seated 1 B[x] standing [address] hip green TB 1 20 ea B; two finger support[] TG SL squats level 10 2 15 B[] TG squats +Ball squeeze Level 10; 3'' hold 2 10 B[] step ups /october 16 step 1 20 ea Contralateral limb october-[] resisted side stepping green TB; 40' 1 2 laps [] gastroc stretch at stairs 20 1 3 B[] prone quad stretch 30 1 1 B[] bridge + hip add red ball 2 10 [] lateral heel tap 4 inch UE support 2 10 ea B [] BW squats 2 10 [] PB wall squats Green PB 3 10 [] bridge with feet on SB 3 10 [] LTR 3 hold 1 10 [x] prone prop 3 min [x] supine hip add iso with pillows 10 hold 1 10 [x] Supine hip abd iso with belt 10 hold 1 10 X bridge 2 10 X A frames/Rocking horse 1 20 ea X Treatment Comments: D/t pt c/o increased LB and L LE radicular symptoms, exercise focused on soft tissue stretching to improve mobility and core/hip strengthening. Strengthening performed to improve trunk stability for reduced strain on LB and distal joints. Cues for upright posture with seated and standing stretches. Cues to maintain core contraction with all strengthening exercises. Assessment/Plan: Pt has one remaining PT session - reassessment by Supervising PT to discuss progress. Pt limited this treatment session d/t exacerbation of LB and radicular symptoms. Therapy Goals Active PT Goals Start: 04/12/23 STG - Pt will improve B hip and knee strength to 5/5 to demonstrate improved knee mechanics to decrease pain with deep squat Start: 04/12/23 Expected End: 06/07/23 STG - pt will improve B HS length to 10 degrees at 90/90 and improve rec fem length with - Magaly's test B to decrease biomechanical stress at knee to decrease pain in deep squat. Start: 04/12/23 Expected End: 06/07/23 LTG - Pt will improve LEFS score to 70 to demonstrate improved BLE function and return to exercise such as running and or weightlifting Start: 04/12/23 Expected End: 06/07/23 LTG - Pt will decrease forward step down score B to 1/5 to demonstrate improved hip to knee mechanics in single leg squat to reduce patellar femoral pressure and reduce pain in running and squatting Start: 04/12/23 Expected End: 06/07/23 Resolved There are no resolved problems. [facility] 07-26-2023 Note Physical Therapy Physical Therapy Treatment Patient Name: Nanette Choi Total Visit Count: 10 Today's Date: 07/26/2023 Time In: 4:02 pm Time Out: 4:50 pm Intervention Time Breakdown: Therapeutic exercise: 4:02 - 4:50 pm Total Billed Minutes: 48 minutes Cumulative Minutes: 48 minutes Subjective: Pt reports being out of clinic for 6 weeks doing to ewa COVID and then having an overnight stay at the hospital for GI issues. Pt states his B knee pain has increased with stiffness. Has been working 60-70 hour weeks which have led to having little time to exercise. Objective: Exercise Intensity Sets Reps Comments Upright bike Level 4 10 mins [x] bridge with TB + hip abd green TB 2 10 [x] HS stretch-stairs 20'' 1 3 B[x] hip flexor stretch- stairs 20'' 1 3 B[x] hip hike 3# 2 20 ea [] hip abduction standing 3 10 [] treadmill 1.0 mph 5 min and 1.5 and 5 min, 0 grade retro[] S/L clamshell Grn TB 3 10 B[] monster walk green TB ;40' 1 2 laps B [] figure 4 stretch-seated 30'' 1 1 B[x] standing 3 way hip green TB 1 20 ea B; two finger support[] TG SL squats level 10 2 15 B[] TG squats +Ball squeeze Level 10; 3'' hold 2 10 B[x] step ups /october 6 step 1 20 ea Contralateral limb october-B[x] resisted side stepping green TB; 40' 1 2 laps [] gastroc stretch at stairs 20'' 1 3 B[x] prone quad stretch 30'' 1 1 B[] bridge + hip add red ball 2 10 [] lateral heel tap 4 inch UE support 2 10 ea B [] BW squats 2 10 [] PB wall squats Green PB 3 10 [] bridge with feet on SB 3 10 [] LTR 3 hold 1 10 [x] [] [] [] Treatment Comments: Initiated treatment session on upright bike to increase B LE blood flow to prepare tissues for stretching and strengthening. Pt led through the above listed exercises to increase knee mobility and improve hip and quad strength to provide greater support to B LE. Reduced exercise this date d/t pt being absent from therapy for several weeks recovering from illness. Pt notes stretching feels really good as he has been working excessive hours and only getting a 20 min break to get up and move. Assessment/Plan: Plan to progress PRE's next session if pt tolerated exercise today well. Pt continues to be appropriate for PT d/t decreased range of motion and LE weakness. Therapy Goals Active PT Goals Start: 04/12/23 STG - Pt will improve B hip and knee strength to 5/5 to demonstrate improved knee mechanics to decrease pain with deep squat Start: 04/12/23 Expected End: 06/07/23 STG - pt will improve B HS length to 10 degrees at 90/90 and improve rec fem length with - Magaly's test B to decrease biomechanical stress at knee to decrease pain in deep squat. Start: 04/12/23 Expected End: 06/07/23 LTG - Pt will improve LEFS score to 70 to demonstrate improved BLE function and return to exercise such as running and or weightlifting Start: 04/12/23 Expected End: 06/07/23 LTG - Pt will decrease forward step down score B to 1/5 to demonstrate improved hip to knee mechanics in single leg squat to reduce patellar femoral pressure and reduce pain in running and squatting Start: 04/12/23 Expected End: 06/07/23 Resolved There are no resolved problems. [facility] 07-19-2023 Note Physical Therapy Communication note: LMOR to discuss no show. Pt reminded of next session and of attendance policy. Will discharge patient from PT if he no shows next session. [facility] 06-15-2023 Note Physical Therapy Physical Therapy Re-evaluation Patient Name: Nanette Choi Total Visit Count: 9 Today's Date: 06/15/23 Time In: 8:31am Time Out: 9:24am Intervention Time Breakdown: 8:31am-9:24am Therapeutic exercise Total Billed Minutes: 53 Cumulative Minutes: 53 Subjective: Pt reports increase hours at work, which is causing fatigue and lack of compliance with hep. Despite this he has reported improvements since starting PT. He is able to control B hip/knee pain with stretches. He is interested in working out at a gym, notes it wont be realistic until the first of the year due to work. Objective: Exercise Intensity Sets Reps Comments Upright bike Level 4 10 mins [x] bridge with TB + hip abd red TB 2 10 [] HS stretch-seated 20'' 1 3 B[x] hip flexor stretch- stairs 20' 1 3 B[] hip hike 3# 2 20 ea [] hip abduction standing 3 10 [] treadmill 1.0 mph 5 min and 1.5 and 5 min, 0 grade retro[] S/L clamshell Grn TB 3 10 B[] monster walk green TB ;40' 1 2 laps B [x] figure 4 stretch-seated 30 1 1 B[x] standing 3 way hip green TB 1 20 ea B; two finger support[x] TG SL squats level 10 2 15 B[x] TG squats +Ball squeeze Level 10; 3'' hold 2 10 B[x] step ups w/october 16 step 1 20 ea Contralateral limb october-[x] resisted side stepping green TB; 40' 1 2 laps [x] standing gastroc stretch 30'' 1 1 B[x] prone quad stretch 30'' 1 1 B[] bridge + hip add red ball 2 10 [] lateral heel tap 4 inch UE support 2 10 ea B [x] BW squats 2 10 [] PB wall squats Green PB 3 10 [x] bridge with feet on SB 3 10 [] [] [] [] [] *Checked boxes indicates exercises completed this date. Treatment Comments: Therapeutic exercise: Session initiated on Sci fit bike to increase peripheral blood flow and prepare tissues for stretching and strengthening. Goal assessment performed. Progressed patient through [facility] LE strengthening exercises. Minor cues required to correct form. Outcome Assessments Hip MMT (__/5) Left Right Flexion 4 5 Extension 4 4 Abduction 4 4 Adduction 4 4 IR 5 5 ER 5 5 Knee strength MMT (__/5) Left Right Flexion 5 5 Extension 5 5 FSD test: 2/5 R; 1/5 L LEFS: 64 HS length 90/90: R 20 deg; L 20 deg Magaly's test: R 127 deg; L 126 deg Assessment/Plan: Pt is demonstrating improvements in LE strength, hamstring/quad flexibility, LE muscle coordination, and function via the LEFS. 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 Plan to take patient [facility] to [facility] at subsequent visits to teach him how to use gym equipment properly and prepare for independent gym based exercise program Therapy Goals Active PT Goals Start: 04/12/23 STG - Pt will improve B hip and knee strength to 5/5 to demonstrate improved knee mechanics to decrease pain with deep squat Start: 04/12/23 Expected End: 06/07/23 STG - pt will improve B HS length to 10 degrees at 90/90 and improve rec fem length with - Magaly's test B to decrease biomechanical stress at knee to decrease pain in deep squat. Start: 04/12/23 Expected End: 06/07/23 LTG - Pt will improve LEFS score to 70 to demonstrate improved BLE function and return to exercise such as running and or weightlifting Start: 04/12/23 Expected End: 06/07/23 LTG - Pt will decrease forward step down score B to 1/5 to demonstrate improved hip to knee mechanics in single leg squat to reduce patellar femoral pressure and reduce pain in running and squatting Start: 04/12/23 Expected End: 06/07/23 Resolved There are no resolved problems. [facility] 05-29-2023 Note Physical Therapy Physical Therapy Treatment Patient Name: Nanette Choi Total Visit Count: 8 Today's Date: 05/29/2023 Time In: 3:53 pm Time Out: 4:45 pm Intervention Time Breakdown: 3:53 - 4:40 pm: therapeutic exercise Total Billed Minutes: 47 Cumulative Minutes: 47 Subjective: Patient notes continued stiffness in B knees. States knees feel better today compared to previous session. States stair climbing and squatting motions are getting easier. Notes inclement weather can impact joint pain. Objective: Exercise Intensity Sets Reps Comments Upright bike Level 4 10 mins [x] bridge with TB + hip abd red TB 2 10 [] HS stretch-at stairs 20'' 1 3 B[x] hip flexor stretch- stairs 20'' 1 3 B[x] hip hike 3# 2 20 ea [] hip abduction standing 3 10 [] treadmill 1.0 mph 5 min and 1.5 and 5 min, 0 grade retro[] S/L clamshell Grn TB 3 10 B[x] monster walk green TB ;40' 1 2 laps B [x] figure 4 stretch-seated 30'' 1 1 B[x] standing 3 way hip green TB 1 20 ea B; two finger support[x] TG SL squats level 18 3 10 B[x] TG squats Level 10 2 20 [] step ups /october 6 step 1 20 ea Contralateral limb october-[x] resisted side stepping green TB; 40' 1 2 laps [x] standing gastroc stretch 30'' 1 1 B[] prone quad stretch 30'' 1 1 B[] bridge + hip add red ball 2 10 [] lateral heel tap 4 inch UE support 2 10 ea B [x] BW squats 2 10 [] PB wall squats Green PB 3 10 [x] bridge with feet on SB 3 10 [x] [] [] [] [] *Checked boxes indicates exercises completed this date. Treatment Comments: Initiated session on Nustep to improve LE endurance, soft tissue pliability and joint mobility. Increased rep with HS and hip flexor stretches to improve LE ROM and tolerance to WB flexion loading. Progressed wall squats to PB wall squats with increased depth this session. Resumed SL TG squats to improve LE extensor strength. Increased resistance with SL clamshell to improve proximal LE stability. Home Exercise Program Encouraged HEP to maximize PT outcome. Assessment/Plan: Good tolerance to therapeutic interventions. Able to resume CKC squat and step up patterns. Will continue to progress per POC. Therapy Goals Active PT Goals Start: 04/12/23 STG - Pt will improve B hip and knee strength to 5/5 to demonstrate improved knee mechanics to decrease pain with deep squat Start: 04/12/23 Expected End: 06/07/23 STG - pt will improve B HS length to 10 degrees at 90/90 and improve rec fem length with - Magaly's test B to decrease biomechanical stress at knee to decrease pain in deep squat. Start: 04/12/23 Expected End: 06/07/23 LTG - Pt will improve LEFS score to 70 to demonstrate improved BLE function and return to exercise such as running and or weightlifting Start: 04/12/23 Expected End: 06/07/23 LTG - Pt will decrease forward step down score B to 1/5 to demonstrate improved hip to knee mechanics in single leg squat to reduce patellar femoral pressure and reduce pain in running and squatting Start: 04/12/23 Expected End: 06/07/23 Resolved There are no resolved problems. [facility] 05-24-2023 Note Physical Therapy Physical Therapy Treatment Patient Name: Nanette Choi Total Visit Count: 7 Today's Date: 05/24/2023 Time In: 4:00 pm Time Out: 4:50 pm Intervention Time Breakdown: Therapeutic exercise: 4:00 - 4:40 pm Manual therapy: 4:40 - 4:50 pm Total Billed Minutes: 50 minutes Cumulative Minutes: 50 minutes Subjective: Pt reports increased B knee and L hip soreness this date. Pt feels possibly d/t weather changes. 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 Objective: Exercise Intensity Sets Reps Comments Upright bike Level 4 10 mins [x] bridge with TB + hip abd red TB 2 10 [] HS stretch-at stairs 30'' 1 1 B[x] hip flexor stretch- stairs 30'' 1 1 B[x] hip hike 3# 2 20 ea [] hip abduction standing 3 10 [] treadmill 1.0 mph 5 min and 1.5 and 5 min, 0 grade retro[] S/L clamshell Red TB 3 10 B[] monster walk green TB ;40' 1 2 laps B [] figure 4 stretch-seated 30 1 1 B[x] standing [address] hip green TB 1 20 ea B; two finger support[x] TG SL squats level 8 3 10 B[] TG squats Level 10 2 20 [] step ups /october 16 step 1 20 ea Contralateral limb [x] resisted side stepping green TB; 40' 1 2 laps [x] standing gastroc stretch 30 1 B[] prone quad stretch 1 B[x] bridge + hip add red ball 2 10 [] lateral heel tap UE support 1 20 ea B; second set of L cued to increase UE support and increase weight acceptance on R LE to reduce patellofemoral pain[] BW squats 2 10 [] wall squats 2 10 [x] bridge with feet on SB 2 10 [x] [] [] [] [] *Checked boxes indicates exercises completed this date. Treatment Comments: Therapeutic exercise: Initiated treatment session on upright bike to increase B LE blood flow to prepare tissues for stretching and strengthening. Pt reports increased B knee pain with mini squat position with side stepping. Better tolerance to mini wall squats. Pt reporting increased L lateral hip pain with L LE hip kicks - cues to reduce range of motion to minimize pain. Progressed to bridges with feet on SB to provide added core/trunk stability challenge. Performed standing, seated, and prone stretches to reduce tissue tension. Manual therapy: Pt in R sidelying with pillow between knees. Use of roller stick (white) to entire length of L ITB followed by L and R quads in supine hip flexor stretch position. Use of roller stick to reduce tissue tension and pain. Home Exercise Program Rolling pin to L ITB and B quads Assessment/Plan: Decreased tolerance to exercise this date d/t increase L hip and B knee pain. Encouraged pt to utilize rolling pin at home for self STM along with all his HEP stretches. Therapy Goals Active PT Goals Start: 04/12/23 STG - Pt will improve B hip and knee strength to 5/5 to demonstrate improved knee mechanics to decrease pain with deep squat Start: 04/12/23 Expected End: 06/07/23 STG - pt will improve B HS length to 10 degrees at 90/90 and improve rec fem length with - Magaly's test B to decrease biomechanical stress at knee to decrease pain in deep squat. Start: 04/12/23 Expected End: 06/07/23 LTG - Pt will improve LEFS score to 70 to demonstrate improved BLE function and return to exercise such as running and or weightlifting Start: 04/12/23 Expected End: 06/07/23 LTG - Pt will decrease forward step down score B to 1/5 to demonstrate improved hip to knee mechanics in single leg squat to reduce patellar femoral pressure and reduce pain in running and squatting Start: 04/12/23 Expected End: 06/07/23 Resolved There are no resolved problems. [facility] 05-17-2023 Note Physical Therapy Physical Therapy Treatment Patient Name: Nanette Choi Total Visit Count: 6 Today's Date: 05/17/23 Time In: 4:00pm Time Out: 4:54pm Intervention Time Breakdown: 4:00pm-4:54pm Therapeutic exercise Total Billed Minutes: 54 Cumulative Minutes: 54 Subjective: Pt reports to PT with continued improvement in B knee/hip pain. He reports good tolerance to last session, noting muscle fatigue only. He continues to try to walk/stretch at work and has been stretching right when he gets home from work. Pt states he would like to be more active, he used to run, but thinks this may not be realistic. He would be open to walking/biking for exercise. He has a treadmill at home. Objective: Exercise Intensity Sets Reps Comments Upright bike Level 4 10 mins [x] bridge with TB + hip abd red TB 2 10 [] HS stretch-sitting 30'' 1 1 B[x] hip flexor stretch- chair 30' 1 B[x] hip hike 3# 2 20 ea [x] hip abduction standing 3 10 [] treadmill 1.0 mph 5 min and 1.5 and 5 min, 0 grade retro[] S/L clamshell Red TB 3 10 B[] monster walk green TB ;40' 1 2 laps B [x] figure 4 stretch-seated 30'' 1 1 B[x] standing [address] hip green TB 1 20 ea B; two finger support[x] TG SL squats level 8 3 10 B[x] TG squats Level 10 2 20 [] step ups w/october 16 step 1 20 ea Contralateral limb [x] resisted side stepping green TB; 40' 1 2 laps [x] standing gastroc stretch 30'' 1 1 B[x] standing quad stretch 30' 1 1 B[x] bridge + hip add red ball 2 10 [x] lateral heel tap UE support 1 20 ea B; second set of L cued to increase UE support and increase weight acceptance on R LE to reduce patellofemoral pain[x] BW squats 2 10 [x] [] [] [] [] [] [] *Checked boxes indicates exercises completed this date. Treatment Comments: Therapeutic exercise: Session initiated on Sci fit bike to increase peripheral blood flow to prepare tissues for stretching and strengthening. Patient instructed to perform all his stretches to increase tissue length and optimize strengthening. Increased lateral heel tap reps, however had to modify on L side due to L knee pain, see comments. Continued with progressions from last session as patient is appropriately challenged. Minimal cues required for the remainder of the session. Assessment/Plan: Pt tolerates PT session well today without c/o lingering pain in L knee. Patient reports muscle fatigue/soreness at EOS. Will continue to progress LE strengthening, endurance, movement coordination, and stretching program to manage knee/hip pain and improve tolerance to work, yardwork, and recreational activities. Therapy Goals Active PT Goals Start: 04/12/23 STG - Pt will improve B hip and knee strength to 5/5 to demonstrate improved knee mechanics to decrease pain with deep squat Start: 04/12/23 Expected End: 06/07/23 STG - pt will improve B HS length to 10 degrees at 90/90 and improve rec fem length with - Magaly's test B to decrease biomechanical stress at knee to decrease pain in deep squat. Start: 04/12/23 Expected End: 06/07/23 LTG - Pt will improve LEFS score to 70 to demonstrate improved BLE function and return to exercise such as running and or weightlifting Start: 04/12/23 Expected End: 06/07/23 LTG - Pt will decrease forward step down score B to 1/5 to demonstrate improved hip to knee mechanics in single leg squat to reduce patellar femoral pressure and reduce pain in running and squatting Start: 04/12/23 Expected End: 06/07/23 Resolved There are no resolved problems. [facility] 05-15-2023 Note Physical Therapy Physical Therapy Re-evaluation Patient Name: Nanette Choi Total Visit Count: 5 Today's Date: 05/15/23 Time In: 3:55pm Time Out: 4:49pm Intervention Time Breakdown: 3:55pm-4:49pm Therapeutic exercise Total Billed Minutes: 54 Cumulative Minutes: 54 Subjective: Pt reports his hips and knees have been feeling better lately. He denies adverse effects to last session. He reports compliance with stretches after work the last couple days. Objective: Exercise Intensity Sets Reps Comments Upright bike Level 4 10 mins [x] bridge with TB + hip abd red TB 2 10 [] HS stretch-sitting 1 B[x] hip flexor stretch- chair 1 B[x] hip hike 3# 2 15 ea [x] hip abduction standing 3 10 [] treadmill 1.0 mph 5 min and 1.5 and 5 min, 0 grade retro[] S/L clamshell Red TB 3 10 B[] monster walk green TB ;40' 1 2 laps B [x] figure 4 stretch-seated 1 B[x] standing [address] hip green TB 1 20 ea B; two finger support[x] TG SL squats level 8 3 10 B[x] TG squats Level 10 2 20 [] step ups /october 6 step 1 20 ea Contralateral limb october-B[x] resisted side stepping green TB; 40' 1 2 laps [x] standing gastroc stretch 1 B[x] standing quad stretch 1 B[x] bridge + hip add red ball 2 10 [x] lateral heel tap UE support 1 20 ea B[x] BW squats 2 10 [x] [] [] [] [] [] [] *Checked boxes indicates exercises completed this date. Treatment Comments: Therapeutic exercise: Session initiated on Sci fit bike to increase peripheral blood flow to prepare tissues for stretching and strengthening. Patient instructed to perform all his stretches to increase tissue length and optimize strengthening. Added lateral step down to increase eccentric quadriceps strength. Increased reps, weight, and duration of various hip/knee strengthening and endurance exercises to increase intensity. Pt encouraged to reduce UE support during 3-way hip to improve LE stability. Pt performed BW squats to improve tolerance to squatting/lifting tasks. Pt demonstrates appropriate form and shifts weight posteriorly to engage gluts and reduce anterior knee strain. Outcome Assessments 90/90 SLR: R 34 deg; L 32 deg LEFS: 52 Assessment/Plan: Pt is demonstrating minimal improvements in function via LEFS and no improvements in hamstring length. LE strength and muscle coordination not updated today as likely minimal improvements due to time frame of treatment thus far. Despite minimal progress pt reports improvement in pain. Will continue to progress LE strengthening, endurance, movement coordination, and stretching program to manage knee/hip pain and improve tolerance to work, yardwork, and recreational activities. Therapy Goals Active PT Goals Start: 04/12/23 STG - Pt will improve B hip and knee strength to 5/5 to demonstrate improved knee mechanics to decrease pain with deep squat Start: 04/12/23 Expected End: 06/07/23 STG - pt will improve B HS length to 10 degrees at 90/90 and improve rec fem length with - Magaly's test B to decrease biomechanical stress at knee to decrease pain in deep squat. Start: 04/12/23 Expected End: 06/07/23 LTG - Pt will improve LEFS score to 70 to demonstrate improved BLE function and return to exercise such as running and or weightlifting Start: 04/12/23 Expected End: 06/07/23 LTG - Pt will decrease forward step down score B to 1/5 to demonstrate improved hip to knee mechanics in single leg squat to reduce patellar femoral pressure and reduce pain in running and squatting Start: 04/12/23 Expected End: 06/07/23 Resolved There are no resolved problems. [facility] 05-10-2023 Note Physical Therapy Physical Therapy treatment Patient Name: Nanette Choi Total Visit Count: 4 Today's Date: 05/10/23 Time In: 4:00pm Time Out: 4:53pm Intervention Time Breakdown: 4:00pm-4:53pm Therapeutic exercise Total Billed Minutes: 53 Cumulative Minutes: 53 Subjective: Pt reports B knee soreness upon entry due to prolonged sitting at work. HE currently does not stretch at work or after work. He is partially compliant with hep. He was recently evaluated for PT of his L shoulder pain at the [place]. He plans on having all his PT treatment at [facility]. HE reports he went to a football game this past weekend and was walking/standing a lot and noted he tolerated it well. Objective: Exercise Intensity Sets Reps Comments Upright bike Level 4 10 mins [x] bridge with TB + hip abd red TB 2 10 [x] HS stretch-sitting 30'' 1 1 B[x] hip flexor stretch- chair 30'' 1 1 B[x] hip hike 3# 2 10 ea [x] hip abduction standing 3 10 [] treadmill 1.0 mph 5 min and 1.5 and 5 min, 0 grade retro[] S/L clamshell Red TB 3 10 B[] monster walk red TB ;40' 1 3 laps B [x] figure 4 stretch-seated 30'' 1 1 B[x] standing [address] hip red TB 1 20 B[x] TG SL squats level 8 3 10 B[x] TG squats Level 10 2 20 [x] step ups /october 6 step 1 20 Contralateral limb [] resisted side stepping red TB; 40' 1 3 laps [x] standing gastroc stretch 30'' 1 1 B[x] standing quad stretch 30'' 1 1 B[x] bridge + hip add red ball 2 10 [x] [] [] [] [] [] [] [] [] *Checked boxes indicates exercises completed this date. Treatment Comments: Therapeutic exercise: Session initiated on Sci fit bike to increase peripheral blood flow and prepare tissues for stretching and strengthening. Reviewed updated stretching regime. Pt reports improvement in soreness following. Patient progressed through hip/knee strengthening exercises to improve joint stability and reduce pain at work. Pt instructed to perform figure 4 stretch following glut focused exercises in order to minimize DOMS. Added bridge + hip add to improve medial knee/hip stability. Home Exercise Program Patient instructed to perform this stretch routine during breaks at work and immediately after work to reduce soreness. Access Code: [email or web address] URL: [email or web address] Date: 05/10/2023 Prepared by: Sneha Singh Exercises - Seated Hamstring Stretch - 1 x daily - 7 x weekly - 1 sets - 1 reps - 30 hold - Hip Flexor Stretch with Chair - 1 x daily - 7 x weekly - 1 sets - 1 reps - 30 hold - Standing Quadriceps Stretch - 1 x daily - 7 x weekly - 1 sets - 1 reps - 30 hold - Quadricep Stretch with Chair and Counter Support - 1 x daily - 7 x weekly - 1 sets - 1 reps - 30 hold - Gastroc Stretch on Wall - 1 x daily - 7 x weekly - 1 sets - 1 reps - 30 hold - Seated Figure 4 Piriformis Stretch - 1 x daily - 7 x weekly - 1 sets - 1 reps - 30 hold Assessment/Plan: Pt tolerates PT session well without c/o increase in pain. Patient and therapist discussed focusing on 1-2 body parts at a time in order to maximize focus/efficiency. [facility] Notes it is overwhelming having multiple body parts to focus on. Plan is to continue focusing on hips/knees this month and if patient wishes for formal shoulder rehab at [facility] will address at a later date. Plan to perform re-assessment next session. Therapy Goals Active PT Goals Start: 04/12/23 STG - Pt will improve B hip and knee strength to 5/5 to demonstrate improved knee mechanics to decrease pain with deep squat Start: 04/12/23 Expected End: 05/10/23 STG - pt will improve B HS length to 10 degrees at 90/90 and improve rec fem length with - Magaly's test B to decrease biomechanical stress at knee to decrease pain in deep squat. Start: 04/12/23 Expected End: 05/10/23 LTG - Pt will improve LEFS score to 70 to demonstrate improved BLE function and return to exercise such as running and or weightlifting Start: 04/12/23 Expected End: 06/07/23 LTG - Pt will decrease forward step down score B to 1/5 to demonstrate improved hip to knee mechanics in single leg squat to reduce patellar femoral pressure and reduce pain in running and squatting Start: 04/12/23 Expected End: 06/07/23 Resolved There are no resolved problems. [facility] 04-28-2023 Note Physical Therapy Physical Therapy Treatment Patient Name: Nanette Choi Total Visit Count: 3 Today's Date: 04/28/23 Time In: 9:57am Time Out: 11:02am Intervention Time Breakdown: Therex 9:57am-11:02am Total Billed Minutes: 65 minutes Cumulative Minutes: 65 minutes Subjective: Patient states he has 5/10 low back pain and bilateral knee pain this date. Patient notes first thing in the morning he has to perform stair negotiation in a non-reciprocal pattern, however as the day goes on he is able to perform stair negotiation in a reciprocal pattern. Objective: Exercise Intensity Sets Reps Comments Upright bike Level 4 10 mins [x] bridge with TB red TB 3 10 [x] HS stretch-supine 30'' 3 1 W/belt- B[x] hip flexor stretch- supine 30'' 3 1 B[] hip hike 2 10 [] hip abduction standing 3 10 [] treadmill 1.0 mph 5 min and 1.5 and 5 min, 0 grade retro[] S/L clamshell Red TB 3 10 B[x] monster walk red TB 3 10 step B [x] figure 4 stretch 30'' 3 10 B[] standing 3 way hip red TB 1 20 B[x] TG SL squats level 17 3 10 B[x] TG squats Level 22 2 20 [x] step ups w/october 6 step 1 20 Contralateral limb october-[x] resisted side stepping red TB 1 3 laps // bars[x] [] [] [] [] [] [] [] [] [] [] [] *Checked boxes indicates exercises completed this date. Treatment Comments: Initiated session on the upright bike to promote blood flow, increase tissue extensibility and improve bilateral LE strength/endurance. Introduced standing 3 way hip with red theraband to increase bilateral hip girdle strength, increase core strength with dynamic distal limb mobility, improve single limb stability and improve VMO contraction. Verbal cues to maintain erect posture with quad activation during 3 way hip. Initiated resisted side stepping with red theraband to increase hip abductor strength and core stability. Completed monster walks with red theraband to increase hip strength and quad strength. Added step up with contralateral limb october on 6 step, TG squats level 22 and TG SL squats level 17 to emphasize on glut activation and improve bilateral quad strength to improve functional mobility. Performed bridges with red theraband and sidelying clamshells with red theraband to increase glut strength. Continued with a supine hamstring stretch to decrease muscle tension and increase soft tissue extensibility. Assessment/Plan: Patient reports pain level remains the same after therapy session. Sales Expert educated the patient to monitor his responses to progressions this date as well as to perform his HEP at home to receive optimal outcomes from therapy. Patient voices good understanding. Therapy Goals Active PT Goals Start: 04/12/23 STG - Pt will improve B hip and knee strength to 5/5 to demonstrate improved knee mechanics to decrease pain with deep squat Start: 04/12/23 Expected End: 05/10/23 STG - pt will improve B HS length to 10 degrees at 90/90 and improve rec fem length with - Magaly's test B to decrease biomechanical stress at knee to decrease pain in deep squat. Start: 04/12/23 Expected End: 05/10/23 LTG - Pt will improve LEFS score to 70 to demonstrate improved BLE function and return to exercise such as running and or weightlifting Start: 04/12/23 Expected End: 06/07/23 LTG - Pt will decrease forward step down score B to 1/5 to demonstrate improved hip to knee mechanics in single leg squat to reduce patellar femoral pressure and reduce pain in running and squatting Start: 04/12/23 Expected End: 06/07/23 Resolved There are no resolved problems. [facility] 04-20-2023 Note Physical Therapy Physical Therapy Treatment Patient Name: Nanette Choi Total Visit Count: 2 Today's Date: 04/20/23 Time In: 351 Time Out: 445 Student PT, Daniel Trejo, was involved in the care of this patient with direct supervision of the cosigning therapist, who was present and actively involved in the patient's care. . Intervention Time Breakdown: TE: [id number] Total Billed Minutes: 54 Cumulative Minutes: 54 Subjective: Pt reports knees have been feeling about the same since initial evaluation. Pt reports he is overdue for cortisone shot but is unsure if he will get another one due to lack of pain relief. Pt reports being noncompliant with HEP due to excessive house and work activities. Objective: Exercise Intensity Sets Reps Comments bridge with TB 3 10 [x] HS stretch 30'' 3 1 [x] hip flexor stretch 30'' 3 1 [x] hip hike 2 10 [] hip abduction standing 3 10 [] treadmill 1.0 mph 5 min and 1.5 and 5 min, 0 grade retro[x] S/L clamshell Red TB 3 10 B[x] monster walk red TB 3 10 step B [x] figure 4 stretch 30'' 3 10 B[x] [] [] [] [] [] [] [] [] [] [] [] [] [] [] [] Treatment Comments: Pt initiated session with backward ambulation on treadmill to increase blood flow to BLE and improve knee tolerance to over toe position. Pt tolerates treatment well. Pt reviewed HEP to strengthening hip and improve ROM. Pt requires review for all exercise. Additional exercises added to improve hip ER and improve hip ER and quad co contraction. Assessment/Plan: Pt tolerates session well with minimal complaints of discomfort throughout treatment. Pt should continue plan of care to increase hip and knee strength as well as coordination to improve BLE function and decrease pain with activities such as running. Therapy Goals Active PT Goals Start: 04/12/23 STG - Pt will improve B hip and knee strength to 5/5 to demonstrate improved knee mechanics to decrease pain with deep squat Start: 04/12/23 Expected End: 05/10/23 STG - pt will improve B HS length to 10 degrees at 90/90 and improve rec fem length with - Magaly's test B to decrease biomechanical stress at knee to decrease pain in deep squat. Start: 04/12/23 Expected End: 05/10/23 LTG - Pt will improve LEFS score to 70 to demonstrate improved BLE function and return to exercise such as running and or weightlifting Start: 04/12/23 Expected End: 06/07/23 LTG - Pt will decrease forward step down score B to 1/5 to demonstrate improved hip to knee mechanics in single leg squat to reduce patellar femoral pressure and reduce pain in running and squatting Start: 04/12/23 Expected End: 06/07/23 Resolved There are no resolved problems. [facility] 04-11-2023 Note Physical Therapy Paola tolliver Patient Name: Nanette Choi Today's Date: 04/12/2023 Total Visit Count: 1 Student PT, Daniel Trejo, was involved in the care of this patient with direct supervision of the cosigning therapist, who was present and actively involved in the patient's care. . Subjective: Patient is a 48 y.o. male , seeks treatment for persistent pain in knee. He was referred to physical therapy (PT) by his orthopedic doctor. The patient describes experiencing various problems in his knee, shoulder, and back. Notably, he underwent a right knee debridement surgery two years ago, which brought about temporary pain relief. However, he has not undergone PT for knee osteoarthritis (OA) in the past. His pain is exacerbated during knee flexion and deep squatting. The patient was very active in his youth including football, wrestling and serving in the [employer] . Pt typically fights through pain to perform activities he needs to. Pt reports not doing as many activities he enjoys to avoid paying for it later He has been limiting his participation in activities due to fear of making his pain worse. 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 Pt has trouble sitting in tree stand for extended periods Social: Lives with: Social support: adequate Home Set Up: 2 stories, sleep on second floor Cognition: A and O x3 PLOF: Independent Falls: hx of fall in past year - 0 Patient goals: to have no pain in knees PMH/PSH per chart No past medical history on file. No past surgical history on file. Objective assessment Hip PROM (degrees) Left Right Flexion 90 90 Abduction 35 * lateral hip pain 31 Adduction 20 16 Hip MMT (__/5) Left Right Flexion 4 4 Extension 4- 4- Abduction 4 4+ Adduction 4 4 IR 4+ 5 ER 4+ 5 Knee AROM (degrees) Left Right Flexion 115 119 Extension 0 0 Knee strength MMT (__/5) Left Right Flexion 4+ 4+ Extension 5* 5 * Pain in patella (*) Denotes pain Muscle Length Tests: Magaly???s test: R +* ; L +* 90/90 SLR: R 30 deg; L 35 deg [place] test: L - *greater trochanter; R - Postural assessment: unimpaired Special tests: Anterior/Posterior drawer test: R-; L- Genu valgus/varus stress test: B - Patella compression test: R>+; L+ Accessory mobility: Patella: normal mobility Palpation: L knee: pain at pt MPFL, pain on patella R knee: pain at patella and patellar tendon, pain at lateral tibial platue with indication of bone spuring Performance Based Outcome Measures: Forward Step down test:R 3/5 knee vaglus, hip drop, trunk lean L 5/5; knee vaglus, hip drop, trunk lean, lateral hip pain test terminated at 3 reps Self Reported Outcome Measures: LEFS: 50 CSSR: low risk Assessment Patient presents with decrease B hip strength, B knee strength, B hip ROM, decrease rectus femoris and hamstring length B, and B knee pain, and movement coordination deficits. The patient is functionally limited in deep squat, running, and sitting in deep knee bend, thus limiting pts ability to perform sit for extended period for hunting, run for exercise and squat for weight lifting . The patient's signs and symptoms are consistent with B patellar femoral pain syndrome with muscle coordination deficits. The patient would benefit from skilled outpatient physical therapy to address above-stated impairments and functional limitations to return to prior level of function safely and independently. Patient has good prognosis. The patient's negatively influencing environmental and personal factors for prognosis are chronicity of pain, seated knee flexion requirement for work and chronic use of CSI, but the positive factors are pt desire to be active again, high motivation, remaining active with pain for hunting and fishing. The patient was oriented to the attendance policy, physical therapy plan of care, and goals set forth for this episode of care and was in agreement. Thank you for this referral. Please contact me with any questions at [phone]. Goals Therapy Goals Active PT Goals Start: 04/12/23 STG - Pt will improve B hip and knee strength to 5/5 to demonstrate improved knee mechanics to decrease pain with deep squat Start: 04/12/23 Expected End: 05/10/23 STG - pt will improve B HS length to 10 degrees at 90/ (more content not included)... [facility] 04-11-2023 Note [id number] Nanette Choi 1975 M Date Provider Department Center 04/11/2023 SNEHA MARTINEZ MP [facility] No family history on file [facility] 02-15-2023 Mil Choi 1975 Chief Complaint Patient presents with Right Knee - Pain Left Knee - Pain HPI: Nanette is a 48 y.o. male who comes in today for concerns of: Bilateral knee pain X 20 years. . No specific injury or trauma. No change in activities. Patient was in the [employer] and so on his feet for long periods of time. Both knees bother him Intermittently. Previously had been seen at the [place]. Of note did have a Right knee arthroscopy about 2 years ago after he was found to have a partial tear of his ACL. Patient reports he had been also seen at [facility], where he had been getting steroid injections into his knee but every 6 weeks? with Dr. Walsh. Rates his current pain as a 5/10 described as a constant dull pain. Pain of right knee localized to the front of the knee and posteriorly. Left knee has pain mostly localized to the front of the knee. No aggravating or relieving factors. Did PT about 2 years ago with minimal relief . Currently not taking anything for pain relief. Patient reports his last steroid injection was about a month ago. No past medical history on file. No past surgical history on file. Social History Occupational History Not on file Tobacco Use Smoking status: Former Types: Cigarettes Quit date: 2007 Years since quittin.5 Smokeless tobacco: Never Substance and Sexual Activity Alcohol use: Not on file Drug use: Not on file Sexual activity: Not on file No Known Allergies Review of Systems: Constitutional: No fever, No chills, No fatigue. Respiratory: No shortness of breath or difficulty breathing. No wheezing. Gastrointestinal: No Vomiting, No Abdominal pain. Musculoskeletal: Bilateral knee pain Neurologic: Alert and oriented Physical Exam: There were no vitals filed for this visit. Ht 1.753 m (5' 9 ) Wt 124 kg (273 lb) BMI 40.32 kg/m??? General: Alert and oriented, No acute distress. Eye: Extraocular movements are intact. Neurologic: Alert, Oriented. Integumentary: Warm, Dry, Intact Musculoskeletal: BILATERAL KNEE Inspection: No effusion, erythema, ecchymosis or abrasions. Palpation: Right knee- tenderness noted over the LJL and along the and lateral collateral ligament. Mild tenderness over the Patellofemoral lara femoral joint. Left knee - TTP over the LJL . Mild tenderness noted over the patellofemoral joint ROM: Adequate extension, Flexion slightly limited to about 110 bilaterally Strength: 5/5 strength with resisted knee extension 4+/5 strength with resisted knee flexion Special tests: No appreciable ligamentous laxity appreciated with Lachmann???s test or Anterior/Posterior drawer test Varus/Valgus stress test : Stable Bilaterally Patellar Grind Test: Positive R >L J sign: Negative McMurrays: Negative Diagnostics/Procedures: Xray Left Knee Impression: No acute abnormality in the left knee.No concerning effusion. No fracture or healing fractures noted. Small osteophyte formation in the intercondylar notch is observed. Position of the patella and the groove is satisfactory Xray Right Knee Spurring along the tibial spines and intercondylar notch is appreciated. This represents chronic and degenerative changes. This has progressed since the prior study. There is no acute process. No concerning effusion. Position the patella and the groove is satisfactory Assessment/ Plan Nanette Choi is a 48 y.o. year old male with 1. Bilateral chronic knee pain 2. Patellofemoral pain syndrome of both knees 3. Bilateral osteoarthritis of knee - bilateral x-rays obtained in the office demonstrating scattered degenerative changes bilaterally. - patient reports having an MRI of the R. Knee previously, with partial ACL tear and history of arthroscopy of the R. Knee ago. AEncourage patient to obtain records to bring with him to his next visit for further evaluation. - Discussed additional options with patient. - Patient's prior physician has done multiple steroid injections in the past with minimal relief, but has never had a MURRAY injection in the past. Therefore we will we will send for approval for Synvisc- One injections . - Has not done recent PT, therefore referral to formal physical therapy was placed. - Ambulatory referral to Physical Therapy; Future - Mobic 7.5 mg daily PRN for pain relief was prescribed. Discussed importance of patient taking the medication with food, and discontinuing any other NSAIDs while on this medication. Patient agreeable with above plan. Strict return precautions and red flag symptoms reviewed with patient. Patient verbalized understanding. All questions answered in the office. Jessica Rodriguez MD, [facility] Evaluation note No assessment inform ation available [place] Work Phone: Hospital Discharge instructions Additional Instructions Please log your blood sugars and have your primary care provider adjust your diabetic regime. Do not drive or operate heavy machinery while dizzy. Return for worsening condition, persistent chest pain, shortness of breath, persistent nausea , persistent sweating or any concerns. Based on your history of present illness, your risk factors, and your emergency department evaluation you were felt appropriate for an outpatient workup of your dizzy spell. Please note that although you had a reassuring ED evaluation this does not exclude underlying coronary artery disease (that may ultimately need a stent) or heart disease like an intermittent irregular heartbeat/dysrhythmia. You should talk to your doctor about arranging outpatient provocative testing ( e.g. a stress test) , event monitoring (e.g. a Holter), and structural heart exam (echocardiogram) [place] Work Phone: Summary Purpose Family History No Family History Records FoundNo Family History Records FoundNo Family History Records FoundNo Family History Records FoundNo Family History Records FoundNo Family History Records FoundNo Family History Records FoundNo Family History Records FoundNo Family History Records Found Advance Directives No Advanced Directives Records Found Advance Directive Response Recorded Date/ Time Does Patient Have Advance Directives? No September 17, 2022 11:35am Code Status Full Code September 17 11:35am Chief Complaint and Reason for Visit Chief Complaint NEAR SYNCOPE, DRY MO UTH Additional Source Comments (unrecognized sect ion and content) No Status Records FoundNo Status Records FoundNo Status Records FoundNo Status Records FoundNo Status Records FoundNo Status Records FoundNo Status Records FoundNo Status Records FoundNo Status Records Found INFORMATION SOURCE (unrecogn ized section and content) DATE CREATED AUTHOR 02/04/2018 [facility] DATE CREATED AUTHOR AUTHOR'S ORGANIZ ATION 09/29/2021 [facility] DATE CREATED AUTHOR AUTHOR'S ORGANIZ ATION 05/19/2022 Ayan Elizondo [facility] DATE CREATED AUTHOR AUTHOR'S ORGANIZ ATION 08/04/2022 [facility] DATE CREATED AUTHOR AUTHOR'S ORGANIZ ATION 09/25/2022 [facility] DATE CREATED AUTHOR AUTHOR'S ORGANIZ ATION 09/25/2022 [facility] DATE CREATED AUTHOR AUTHOR'S ORGANIZ ATION 10/12/2023 [facility] DATE CREATED AUTHOR AUTHOR'S ORGANIZ ATION 01/25/2024 [facility] DATE CREATED AUTHOR AUTHOR'S ORGANIZ ATION 12/01/2024 [facility] Care Teams (unrecognized sec tion and content) Team Status: Active Member Role Status Dates GAGANDEEP MIX Primary Care Provider Active Team Status: Inactive Member Role Status Dates CAROLYN WILDER DO Emergency Provider Active DOMINGUEZ DONIS Primary Care Provider Active Goals (unrecognized section and content) Goals may be documented in a n alternate section FOR RECORDS PERTAINING TO PATIENTS WHO ARE OR HAVE BEEN ENROLLED IN A CHEMICAL DEPENDENCY/SUBSTANCEABUSE PROGRAM, SOME INFORMATION MAY BE OMITTED. This clinical summary was aggregated from multiple sources. Caution should be exercised in using it in the provision of clinical care. This summary normalizes information from multiple sources, and as a consequence, information in this document may materially change the coding, format and clinical context of patient data. In addition, data may be omitted in some cases. CLINICAL DECISIONS SHOULD BE BASED ON THE PRIMARY CLINICAL RECORDS. [facility]. provides no warranty or guarantee of the accuracy or completeness of information in this document.
== END 2025-04-14 11:18 | disposition home or self-care (01) ==
LOC: LAB 11:19
PROVIDERS: PCP Nurse Practitioner Family; Visit Provider Nurse Practitioner Family
DX: E11.9 Type 2 diabetes mellitus without complications (principal)
CPT/HCPCS: 36415; 83036